=== PATIENT | female | born 1970 ===

== ENCOUNTER 2020-07-21 11:41 | Outpatient (REF) | payer OTHER, SELFPAY | END 2020-07-21 11:42 | disposition home or self-care (01) | LOC: HO.LAB 11:41 | PROVIDERS: Visit Provider Nurse Practitioner Family | DX: R05 Cough (principal) | CPT/HCPCS: 36415; U0003; U0005 ==

== ENCOUNTER 2020-07-21 11:42 | Outpatient (REF) | payer OTHER, SELFPAY ==
--- NOTE | ~2020-07-21 | XR_ITS ---
EXAMINATION: XR CHEST CLINICAL INFORMATION: Cough COMPARISON: CT abdomen 03/21/2017 TECHNIQUE: 2 views of the chest were obtained. FINDINGS: The lungs are clear. There is no airspace consolidation or groundglass opacity. There is no pneumothorax or pleural reaction or effusion. The costophrenic sulci are clear. The heart is normal in size. The hilar and mediastinal contours and visualized bony structures are unremarkable. XR/XR chest 2V IMPRESSION: Unremarkable examination.
== END 2020-07-21 11:43 | disposition home or self-care (01) ==
LOC: HO.HMGCX 11:42
PROVIDERS: PCP Internal Medicine; Visit Provider Nurse Practitioner Family
DX: R05 Cough (principal)
CPT/HCPCS: 71046

== ENCOUNTER 2021-04-06 10:46 | Outpatient (REF) | payer OTHER, SELFPAY ==
[2021-04-06 14:13] LABS: MANUAL DIFF FLAG NO
[2021-04-06 14:17] LABS: Basophils Percent Auto 0.5 % (0-2); Eosinophils Absolute Auto 0.1 X10*3/uL (0.0-0.4); Eosinophils Percent Auto 1.4 % (0-4); Hematocrit 36.1 % (37.0-47.0); Hemoglobin 11.7 g/dl (12.0-16.0); Imm Gran Abs Auto 0.02 X10*3/uL (0.00-0.03); Imm Gran Pct Auto 0.3 % (0.0-0.4); Lymphocytes Absolute Auto 1.3 X10*3/uL (1.2-4.9); Lymphocytes Percent Auto 17.5 % (20-40); Mean Corpuscular HGB Conc 32.4 g/dl (31.0-35.0); Mean Corpuscular Hemoglobin 28.5 pg (27.0-33.0); Mean Platelet Volume 9.7 fL (9.4-12.3); Monocytes Absolute Auto 0.5 X10*3/uL (0.1-1.2); Monocytes Percent Auto 6.6 % (2-11); Neutrophils Absolute Auto 5.5 x10*3/uL (2.0-8.3); Neutrophils Percent Auto 73.7 % (45-73); Platelet Count 344 X10*3/uL (160-400); Red Cell Distribution Width 14.3 % (11.0-16.0); White Blood Count 7.4 X10*3/uL (4.8-10.8)
[2021-04-06 14:49] LABS: Alanine Aminotransferase 10 U/L (0-31); Albumin Level 4.1 g/dL (3.5-5.0); Alkaline Phosphatase 51 U/L (39-117); Anion Gap 15 (12-20); Aspartate Amino Transferase 16 U/L (5-31); Bilirubin Total 0.6 mg/dL (0.0-1.0); Blood Urea Nitrogen 13 mg/dL (9-16); Calcium 9.6 mg/dL (8.4-10.2); Carbon Dioxide 23 mmol/L (22-29); Chloride 104 mmol/L (96-108); Cholesterol 177 mg/dL; Estimated Glomerular Filt Rate > 60; Glucose Fasting 85 mg/dL (60-99); HDL Cholesterol 50 mg/dL; Iron 70 mcg/dL (30-160); LDL Cholesterol Calculated 94 mg/dl; Percent Iron Saturation 16 % (15-50); Potassium 5.1 mmol/L (3.3-5.1); Sodium 137 mmol/L (135-145); Total Iron Binding Capacity 438 mcg/dL (228-428); Total Protein 7.2 g/dL (6.5-8.0); Triglycerides 166 mg/dL; Unsaturated Iron Binding 368 ug/dL
[2021-04-06 15:13] LABS: Free T4 (Free Thyroxine) 1.11 ng/dL (0.71-1.85); Thyroid Stimulating Hormone 2.99 uIU/mL (0.32-4.0); Vitamin D 25-OH Total 11.8 ng/mL (>30)
[2021-04-09 01:36] LABS: Thyroid Peroxidase Antibodies 53 IU/mL (<9)
== END 2021-04-06 10:47 | disposition home or self-care (01) ==
LOC: HO.HMGCLDS 10:46
PROVIDERS: PCP Internal Medicine; Visit Provider Internal Medicine
DX: D50.9 Iron deficiency anemia, unspecified (principal); E03.9 Hypothyroidism, unspecified; E55.9 Vitamin D deficiency, unspecified; E78.5 Hyperlipidemia, unspecified; N95.1 Menopausal and female climacteric states
CPT/HCPCS: 36415; 80053; 80061; 82306; 83540; 84439; 84443; 85025; 86376

== ENCOUNTER 2021-12-01 11:06 | Outpatient (REF) | payer OTHER, SELFPAY ==
--- NOTE | ~2021-12-01 | MM_ITS ---
EXAMINATION: MM SCREENING DIGITAL BREAST TOMOSYNTHESIS, BILATERAL CLINICAL INFORMATION: Screening. Asymptomatic. The lifetime risk of breast cancer based on the Tyrer-Cuzick Model is 16%. COMPARISON: Mammography: August 03, 2018 and studies dating back to February 09, 2012 TECHNIQUE: Digital breast tomosynthesis is performed in both the craniocaudal and mediolateral oblique views along with computer-aided detection (CAD). Synthesized 2D images are generated from the tomosynthesis. FINDINGS: There are scattered areas of fibroglandular density (ACR BI-RADS breast composition Category b). There is a stable parenchymal pattern of the left breast. Within the central medial aspect of the right breast there is a ill-defined faint density for which spot compression view is recommended. MM/MM tomosynthesis screening BI IMPRESSION: Right breast density for further evaluation. ASSESSMENT: BI-RADS 0: Incomplete - Need Additional Imaging Evaluation RECOMMENDATION: 1. Additional views of the right breast. 2. Targeted ultrasound if warranted after review of the additional views. 3. Radiology department staff will contact the patient for additional imaging. This patient's information was entered into a reminder system with a target due date for their next mammogram.
== END 2021-12-01 11:07 | disposition home or self-care (01) ==
LOC: HO.MAMMO 11:06
PROVIDERS: Visit Provider Internal Medicine
DX: Z12.31 Encounter for screening mammogram for malignant neoplasm of breast (principal)
CPT/HCPCS: 77063; 77067

== ENCOUNTER 2021-12-06 14:08 | Outpatient (REF) | payer OTHER, SELFPAY ==
--- NOTE | ~2021-12-06 | XR_ITS ---
EXAMINATION: XR FOOT, LEFT CLINICAL INFORMATION: Pain in the foot COMPARISON: None TECHNIQUE: AP, lateral, and oblique views of the left foot. FINDINGS: No fracture or dislocation. Alignment is maintained. Joint spaces are maintained. Hallux valgus. Soft tissue swelling of the midfoot. XR/XR foot LT min 3V IMPRESSION: Soft tissue swelling with no acute osseous abnormality. Hallux valgus.
== END 2021-12-06 14:09 | disposition home or self-care (01) ==
LOC: HO.HOSX 14:08
PROVIDERS: Visit Provider Physician Assistant
DX: S93.402A Sprain of unspecified ligament of left ankle, initial encounter (principal)
CPT/HCPCS: 73630; 99202

== ENCOUNTER 2021-12-14 12:22 | Outpatient (REF) | payer OTHER, SELFPAY ==
--- NOTE | ~2021-12-14 | MM_ITS ---
EXAMINATION: MM DIAGNOSTIC DIGITAL BREAST TOMOSYNTHESIS, RIGHT CLINICAL INFORMATION: Recall from screening for question of focal asymmetric density central inner right breast. COMPARISON: Mammography: 12/01/2021, 08/03/2018, 07/21/2017 TECHNIQUE: Digital breast tomosynthesis is performed. 2D images are generated from the tomosynthesis. The following views are obtained: Spot CC, spot MLO FINDINGS: There are scattered areas of fibroglandular density (ACR BI-RADS breast composition Category b). Additional views show no persistent asymmetric density. There is no mass or architectural abnormality. No significant change from prior studies. Results are discussed with the patient at time of visit. MM/MM tomosynthesis added views R IMPRESSION: Additional views show no persistent asymmetric density. No significant changes from prior studies. ASSESSMENT: BI-RADS 1: Negative RECOMMENDATION: Routine annual mammography screening. This patient's information was entered into a reminder system with a target due date for their next mammogram.
== END 2021-12-14 12:23 | disposition home or self-care (01) ==
LOC: HO.MAMMO 12:22
PROVIDERS: PCP Internal Medicine; Visit Provider Internal Medicine
DX: R92.2 Inconclusive mammogram (principal)
CPT/HCPCS: 77061; 77065

== ENCOUNTER 2022-05-18 11:58 | Outpatient (REF) | payer OTHER, SELFPAY ==
--- NOTE | ~2022-05-18 | XR_ITS ---
EXAMINATION: XR KNEE, LEFT CLINICAL INFORMATION: Left knee pain COMPARISON: July 02, 2019 TECHNIQUE: Four views of the left knee. FINDINGS: There has been progression in medial joint space narrowing with spurring and tibial plateau subchondral cyst formation. No definite acute fracture is seen. No effusion is noted. The patellofemoral joint and lateral joint space compartments are maintained. There are small spurs undersurface of the patella. There is question of a density about the anterior aspect of the knee joint on lateral view only which appears to have separation from the tibial spine with clear space and may represent a small loose body with possible donor site about the medial tibial plateau in region of the subchondral cyst. XR/XR knee LT 4V IMPRESSION: Progression in degenerative change of the medial joint space compartment of the left knee. No definite acute fracture or dislocation or effusion identified. Question possible small loose body as described
== END 2022-05-18 11:59 | disposition home or self-care (01) ==
LOC: HO.HMGCX 11:58
PROVIDERS: PCP Internal Medicine; Visit Provider Internal Medicine
DX: M25.562 Pain in left knee (principal)
CPT/HCPCS: 73564

== ENCOUNTER 2022-08-08 08:53 | Outpatient (REF) | payer OTHER, SELFPAY ==
[2022-08-08 11:39] LABS: MANUAL DIFF FLAG NO
[2022-08-08 11:56] LABS: Basophils Percent Auto 0.6 % (0-2); Eosinophils Absolute Auto 0.1 X10*3/uL (0.0-0.4); Hematocrit 38.2 % (37.0-47.0); Hemoglobin 12.2 g/dl (12.0-16.0); Imm Gran Abs Auto 0.02 X10*3/uL (0.00-0.03); Imm Gran Pct Auto 0.4 % (0.0-0.4); Lymphocytes Percent Auto 18.8 % (20-40); Mean Corpuscular HGB Conc 31.9 g/dl (31.0-35.0); Mean Platelet Volume 9.4 fL (9.4-12.3); Monocytes Absolute Auto 0.4 X10*3/uL (0.1-1.2); Monocytes Percent Auto 7.4 % (2-11); Neutrophils Absolute Auto 3.6 x10*3/uL (2.0-8.3); Neutrophils Percent Auto 70.8 % (45-73); Platelet Count 343 X10*3/uL (160-400); Red Cell Distribution Width 12.3 % (11.0-16.0); White Blood Count 5.1 X10*3/uL (4.8-10.8)
[2022-08-08 12:59] LABS: Alanine Aminotransferase 13 U/L (0-31); Albumin Level 4.3 g/dL (3.5-5.0); Alkaline Phosphatase 65 U/L (39-117); Amylase 36 U/L (28-100); Anion Gap 11 (12-20); Aspartate Amino Transferase 17 U/L (5-31); Blood Urea Nitrogen 18 mg/dL (9-16); Calcium 9.8 mg/dL (8.4-10.2); Carbon Dioxide 31 mmol/L (22-29); Chloride 104 mmol/L (96-108); Cholesterol 197 mg/dL; Estimated Glomerular Filt Rate > 60; Glucose Fasting 93 mg/dL (60-99); HDL Cholesterol 46 mg/dL; Iron 73 mcg/dL (30-160); LDL Cholesterol Calculated 133 mg/dl; Lipase 11 U/L (8-78); Percent Iron Saturation 23 % (15-50); Potassium 4.6 mmol/L (3.3-5.1); Sodium 141 mmol/L (135-145); Total Iron Binding Capacity 314 mcg/dL (228-428); Total Protein 7.1 g/dL (6.5-8.0); Triglycerides 90 mg/dL; Unsaturated Iron Binding 241 ug/dL
[2022-08-08 13:16] LABS: Free T4 (Free Thyroxine) 1.36 ng/dL (0.71-1.85); Thyroid Stimulating Hormone 1.67 uIU/mL (0.32-4.0); Vitamin D 25-OH Total 21.2 ng/mL (>30)
== END 2022-08-08 08:54 | disposition home or self-care (01) ==
LOC: HO.HMGCLDS 08:53
PROVIDERS: PCP Internal Medicine; Visit Provider Internal Medicine
DX: R10.13 Epigastric pain (principal); N95.1 Menopausal and female climacteric states; E78.5 Hyperlipidemia, unspecified; E66.9 Obesity, unspecified; E55.9 Vitamin D deficiency, unspecified; E03.9 Hypothyroidism, unspecified; D50.9 Iron deficiency anemia, unspecified
CPT/HCPCS: 36415; 80053; 80061; 82150; 82306; 83540; 83690; 84439; 84443; 85025

== ENCOUNTER 2022-08-23 09:14 | Outpatient (REF) | payer OTHER, SELFPAY ==
[2022-08-23 12:37] LABS: Vitamin B12 644 pg/mL (200-900)
[2022-08-26 13:24] LABS: Transglutaminase Ab IgG <1.0 U/mL; Transglutaminase IgA <1.0 U/mL
== END 2022-08-23 09:15 | disposition home or self-care (01) ==
LOC: HO.LAB 09:14
PROVIDERS: PCP Internal Medicine; Visit Provider Nurse Practitioner Family
DX: K21.9 Gastro-esophageal reflux disease without esophagitis (principal); R10.13 Epigastric pain; K58.1 Irritable bowel syndrome with constipation; R13.10 Dysphagia, unspecified
CPT/HCPCS: 36415; 82607; 82746; 86364; 99202

== ENCOUNTER → 2022-09-06 08:04 | Outpatient (BNVA) | payer OTHER, SELFPAY | PROVIDERS: PCP Internal Medicine; Referring Provider Internal Medicine; Visit Provider Nurse Practitioner Family | DX: Z11.0 Encounter for screening for intestinal infectious diseases (principal) | CPT/HCPCS: 99211 ==

== ENCOUNTER 2022-09-06 17:02 | Outpatient (REF) | payer OTHER, SELFPAY ==
[2022-09-08 11:45] LABS: H Pylori Breath Test Positive (Negative)
== END 2022-09-06 17:03 | disposition home or self-care (01) ==
LOC: HO.LNP 17:02
PROVIDERS: Visit Provider Nurse Practitioner Family
DX: E66.9 Obesity, unspecified (principal)
CPT/HCPCS: 83013

== ENCOUNTER 2022-12-01 14:17 | Outpatient (AMB) | payer OTHER, SELFPAY ==
--- NOTE | 2022-12-01 14:35 | A.OFFVIS_ITS ---
Intake Vital Signs 12/01/22 14:38 Height 5 ft 2 in Weight 180 lb BMI 32.9 BP 127/58 L Blood Pressure Location Lt brachial Position Sitting Pulse 86 Intake Visit Reasons: pt rquested appt f/u Intake Note: Patient follow up for abdominal burning sensation. Patient cc: Abdominal pain/bloating, acid reflex with burning sensation, soft waterily BM. [employer] Central Office Required: No Accompanied by: Self / Same As Patient Allergies No Known Allergies Allergy (Mild, Verified 12/01/22 14:34) NOT APPLICABLE HPI pt rquested appt f/u HPI Details LAST VISIT GERD (gastroesophageal reflux disease) Will do H pylori testing today and treat empirically if positive. Patient can start taking famotidine 20 mg twice a day to help her with symptoms. Discussed with patient avoiding dietary triggers and late night snacking. Staying upright for minimum 3 hours after after meals discussed with patient Epigastric pain Patient reports epigastric discomfort postprandially. Do H pylori testing. Start famotidine twice a day. Will rule out celiac IBS (irritable bowel syndrome) Postprandial abdominal bloating mostly when she is constipated. Will have her start taking Citrucel and Senokot. Patient will call if she will continue to be constipated will change that to Linzess. Discussed with patient avoiding dietary triggers. Low FODMAP diet discussed with patient. List of food recommended as well as list of food to avoid given to patient. Dysphagia Patient reports occasional trouble swallowing. Symptoms are worse when she feels bloated. Will check for H pylori. Most likely related to reflux and dyspepsia. I will see patient in 6 weeks, sooner on as needed basis. We will discuss going for upper endoscopy. She is agreeable to this plan and verbalizes understanding of instructions. She was given the opportunity to ask questions and all questions answered. ? Thank you for allowing me to participate in her care Plan Orders Orders H Pylori Breath Test 08/23/22 Transglutaminase Ab IgG 08/23/22 R10.9 Transglutaminase IgA 08/23/22 R10.9 Vitamin B12 and Folate 08/23/22 R19.7 TODAY'S VISIT: Patient is here today for follow-up. Patient was treated for H pylori back in September. Tested positive. Has not return for follow-up till today. Patient reports similar symptoms as before with epigastric discomfort, burning like sensation regardless what she eats.. Patient states that she is constipated but occasionally will have loose stools. Patient also reports postprandial abdominal bloating. Occasional dyspepsia without dysphagia or odynophagia. Patient denies any nausea or vomiting. Denies melena, hematochezia, unintentional weight loss or ribbon like stools. [facility] Medical History Acquired hypothyroidism Dyslipidemia Epigastric pain Iron deficiency anemia Left ankle sprain Obesity (BMI 30.0-34.9) Perimenopause Polyarthralgia Vitamin D deficiency Surgical History No pertinent past surgical history Family History Maternal Uncle Mental health disorder Social History Housing: House Patient Tobacco Use Status: Never used Tobacco e-Cigarette/Vaping Use: Never Used service: No Current occupational status: employed Cognitive needs: No Hearing needs: No Vision needs: Yes Review of Systems Const Denies weight gain and Denies weight loss ENT Reports no additional complaints, Denies dysphagia and Denies odynophagia Card Reports no additional complaints Resp Reports no additional complaints GI Reports abdominal pain (Epigastric), Denies belching, Denies melena, Reports bloating, Reports constipation, Denies dysphagia, Denies excessive flatus, Denies dyspepsia, Reports heartburn, Denies diarrhea, Reports loose stools, Denies nausea, Denies odynophagia and Denies vomiting Reports no additional complaints Musc Reports no additional complaints Neuro Reports no additional complaints Psych Reports no additional complaints Endo Reports no additional complaints Physical Exam Vital Signs: Last Vital Signs Pulse 86 12/01/22 14:38 BP 127/58 L 12/01/22 14:38 BMI result Body Mass Index 32.9 Const General: healthy appearing, no acute distress and well developed Nutritional Appearance: obese Orientation/consciousness: patient oriented x3 HEENT Head: Yes normal to inspection, Yes normocephalic and Yes atraumatic Face and sinus: Yes normal facial exam Mouth: Normal oral and palatal mucosa present Throat: Yes posterior oropharynx normal, Yes tonsils normal and Yes uvula midline Eyes General: appearance normal, both eyes and all related structures Neck Neck: Yes normal visual inspection, Yes full ROM and Yes trachea midline Thyroid: Thyroid normal Resp Effort & Inspection: normal respiratory effort, able to speak in complete sentences, no tracheal deviation and symmetric chest movement Auscultation: clear to auscultation bilaterally Cardio Rate: regular rate Heart sounds: S1 normal heart sound present and S2 normal heart sound present GI Inspection: Yes normal to inspection, No distended and Yes obesity Palpation (GI): Soft to palpation, not firm, nontender and No hepatosplenomegaly present Auscultation: normal bowel sounds General: Yes no CVA tenderness Back/Spine/Pelvis Back: no CVA tenderness Skin General skin exam: elasticity normal, turgor normal and dry skin Neuro General: patient oriented x3 Psych Appearance: grossly normal Mental Status: mental status grossly normal Speech and movement: Normal speech and movement present Assessment & Plan Assessment & Plan (1) Epigastric pain: Code(s): R10.13 - Epigastric pain Plan: Patient reports epigastric discomfort. She can take famotidine at bedtime and omeprazole 40 mg half an hour before breakfast. Avoid dietary triggers. (2) GERD (gastroesophageal reflux disease): Code(s): K21.9 - Gastro-esophageal reflux disease without esophagitis Qualifiers: Esophagitis presence: esophagitis presence not specified Qualified Code(s): K21.9 - Gastro-esophageal reflux disease without esophagitis Plan: Encourage patient to avoid dietary triggers and late night snacking. Staying upright for minimum 3 hours after meals discussed with patient. Will check for H pylori again. Will treat empirically positive. Continue PPI and H2 víctor (3) IBS (irritable bowel syndrome): Code(s): K58.9 - Irritable bowel syndrome without diarrhea Qualifiers: Irritable bowel syndrome type: with both diarrhea and constipation Qualified Code(s): K58.2 - Mixed irritable bowel syndrome Plan: Occasional loose stools, however patient reports that she is constipated for removed our. Continue taking Citrucel in the morning and Senokot at night time. Patient was also encouraged to increase fluid intake and activity to promote better bowel motility. Low FODMAP diet encouraged. I will see patient in 5 weeks to discuss upper endoscopy and colonoscopy. Patient is agreeable to this plan and verbalizes understanding of instructions. She was given the opportunity to ask questions and all questions answered. Thank you for allowing me participate in her care Orders: Orders H pylori Ag Stool 12/01/22 K21.9 - Gastro-esophageal reflux disease without esophagitis Medications: Changed From famotidine 20 mg PO BID 30 tabs 0RF K21.9 - Gastro-esophageal reflux disease without esophagitis To famotidine (Pepcid) 20 mg PO BEDTIME 30 tabs 2RF K21.9 - Gastro-esophageal reflux disease without esophagitis Refilled methylcellulose (laxative) (Citrucel) take it with full glass of water 500 mg PO DAILY 30 tabs 2RF K59.00 - Constipation, unspecified Discontinued metronidazole Discontinued Reason: Patient no longer taking 1,000 mg (2 x 500 mg) PO BID 14 days 56 tabs 0RF A04.8 - Other specified bacterial intestinal infections tetracycline Discontinued Reason: Patient no longer taking 500 mg PO Q12H 14 days 28 caps 0RF A04.8 - Other specified bacterial intestinal infections Coding Level of Care Code Est Pt Level 4 (72308) Diagnoses Epigastric pain R10.13 GERD (gastroesophageal reflux disease) K21.9 Esophagitis presence: esophagitis presence not specified IBS (irritable bowel syndrome) K58.2 Irritable bowel syndrome type: with both diarrhea and constipation Time Spent (min) 35 Comment 20 minutes spent with patient and additional 15 minutes spent reviewing her records
[2022-12-01 14:38] VITALS: BP 127/58; PULSE 86; BMI 32.9
== END 2022-12-01 15:12 | disposition home or self-care (01) ==
PROVIDERS: PCP Internal Medicine; Visit Provider Nurse Practitioner Family
DX: R10.13 Epigastric pain (principal); K21.9 Gastro-esophageal reflux disease without esophagitis; K58.2 Mixed irritable bowel syndrome
CPT/HCPCS: 99214

== ENCOUNTER → 2022-12-01 14:17 | Outpatient (BNVA) | payer OTHER, SELFPAY | PROVIDERS: PCP Internal Medicine; Visit Provider Nurse Practitioner Family | DX: R10.13 Epigastric pain (principal); K21.9 Gastro-esophageal reflux disease without esophagitis; K58.2 Mixed irritable bowel syndrome; Z79.899 Other long term (current) drug therapy | CPT/HCPCS: 99212 ==

== ENCOUNTER 2022-12-18 15:00 | Outpatient (REF) | payer OTHER, SELFPAY | END 2022-12-18 15:01 | disposition home or self-care (01) | LOC: HO.LNP 15:00 | PROVIDERS: Visit Provider Nurse Practitioner Family | DX: K21.9 Gastro-esophageal reflux disease without esophagitis (principal) | CPT/HCPCS: 87338 ==

== ENCOUNTER 2023-02-03 09:50 | Outpatient (REF) | payer OTHER, SELFPAY ==
[2023-02-03 12:06] LABS: Alanine Aminotransferase 10 U/L (0-31); Aspartate Amino Transferase 17 U/L (5-31); Cholesterol 210 mg/dL (<200); HDL Cholesterol 51 mg/dL (>40); LDL Cholesterol Calculated 143 mg/dL (<100); Triglycerides 84 mg/dL (<150)
[2023-02-03 12:13] LABS: Thyroid Stimulating Hormone 0.65 uIU/mL (0.32-4.0); Vitamin D 25-OH Total 27.4 ng/mL (>30)
== END 2023-02-03 09:51 | disposition home or self-care (01) ==
LOC: HO.HMGCLDS 09:50
PROVIDERS: PCP Internal Medicine; Visit Provider Internal Medicine
DX: E03.9 Hypothyroidism, unspecified (principal); E78.5 Hyperlipidemia, unspecified; N95.1 Menopausal and female climacteric states; E55.9 Vitamin D deficiency, unspecified
CPT/HCPCS: 36415; 80061; 82306; 84443; 84450; 84460

== ENCOUNTER 2023-02-05 15:12 | Outpatient (REF) | payer OTHER, SELFPAY ==
[2023-02-05 16:57] LABS: Free T4 (Free Thyroxine) 1.39 ng/dL (0.71-1.85)
== END 2023-02-05 15:13 | disposition home or self-care (01) ==
LOC: HO.HMGCLDS 15:12
PROVIDERS: PCP Internal Medicine; Visit Provider Internal Medicine
DX: E03.9 Hypothyroidism, unspecified (principal); E78.5 Hyperlipidemia, unspecified; N95.1 Menopausal and female climacteric states; E55.9 Vitamin D deficiency, unspecified
CPT/HCPCS: 36415; 84439

== ENCOUNTER 2023-02-06 10:28 | Outpatient (AMB) | payer OTHER, SELFPAY ==
[2023-02-06 10:36] VITALS: BP 122/78; PULSE 65; O2SAT 99; BMI 34.6
--- NOTE | 2023-02-06 10:36 | A.OFFPC_ITS ---
Vital Signs 02/06/23 10:36 Height 5 ft 2 in Weight 189 lb BMI 34.6 BP 122/78 Blood Pressure Location Lt brachial Position Sitting Pulse 65 Pulse Source Pulse Oximeter Pulse Oximetry (%) 99 Oxygen Delivery Method Room Air Intake Visit Reasons: 6m follow up hypothyroidism. Intake Note: patient is here today for her 6 month f/u Allergies No Known Allergies Allergy (Mild, Verified 02/06/23 10:50) NOT APPLICABLE Medication List - Last Reconciled 02/06/23 by Angie Carlin MD celecoxib (Celebrex) 200 mg PO DAILY PRN famotidine (Pepcid) 20 mg PO BEDTIME levothyroxine 125 mcg PO QAM omeprazole 20 mg PO BID 14 days Tobacco use date assessed: 02/06/23 Dental Screening Dental Screen Date: 02/06/23 Did you have a dental visit in the last 12 months?: No Did you have a dental problem in the last 6 months where you did not have access to dental care?: No Was dental information given to patient?: Patient has dentist HPI HPI Comments History of Present Illness Details 52-year-old lady with hypothyroidism, dy slipidemia, here today for follow-up. Had recent fasting labs done which showed thyroid levels within normal limits, but lipids showed LDL cholesterol at 143 mg/dL. She also has recently diagnosed with H pylori gastritis, was placed on antibiotics and PPI by GI, but patient unable to afford some of her medications and has only been taking omeprazole and famotidine. Still complaining of epigastric pain accompanied by bloating, and heartburn symptoms Also found to be having low vitamin-D level and latest labs done [facility] Medical History (Updated 02/06/23 @ 10:58 by Angie Carlin MD) Polyarthralgia Epigastric pain Obesity (BMI 30.0-34.9) Left ankle sprain Vitamin D deficiency Perimenopause Iron deficiency anemia Dyslipidemia Acquired hypothyroidism Surgical History No pertinent past surgical history Family History Maternal Uncle Mental health disorder Social History Housing: House Patient Tobacco Use Status: Never used Tobacco e-Cigarette/Vaping Use: Never Used service: No Current occupational status: employed Cognitive needs: No Hearing needs: No Vision needs: Yes Questionnaire Thrive Questionnaire Date Thrive assessed: 08/08/22 AUDIT C Alcohol Use Questionnaire (AUDIT-C) 1. How often do you have a drink containing alcohol?: Monthly or less 2. How many drinks containing alcohol do you have on a typical day when you are drinking?: 1 or 2 Total Score: 1 CADE-7 AMB Questionnaire CADE-7 Date CADE - 7 assessed: 08/08/22 Source: Developed by Drs. Rodriguez Lewis, Sofia Courtney, Davy Kim and colleagues, with an educational misael from [employer]. Review of Systems Const Denies weight gain and Denies weight loss Eyes Denies change in vision ENT Reports no additional complaints and Denies dysphagia Card Reports no additional complaints Resp Reports no additional complaints GI Reports abdominal pain (Epigastric), Denies belching, Denies melena, Reports bloating, Denies hematochezia, Denies change in bowel habits, Denies dysphagia, Denies excessive flatus and Denies nausea Reports no additional complaints Musc Reports no additional complaints Neuro Reports no additional complaints Psych Reports no additional complaints Endo Reports no additional complaints Main/Lymph Reports no additional complaints Physical exam (Primary Care) Vital Signs: Last Vital Signs Pulse 65 02/06/23 10:36 BP 122/78 02/06/23 10:36 Pulse Ox 99 02/06/23 10:36 Oxygen Delivery Method Room Air 02/06/23 10:36 BMI result Body Mass Index 34.6 Tobacco/Smoking Status: Tobacco use Status Tobacco use date assessed 02/06/23 02/06/23 10:41 Patient Tobacco Use Status Never used Tobacco 02/06/23 10:41 e-Cigarette/Vaping Use Never Used 02/06/23 10:41 Thrive Assessment: Date of Thrive Assessment Date Thrive assessed 08/08/22 02/06/23 10:41 Const General: cooperative, comfortable and no acute distress Orientation/consciousness: patient oriented x3 Limitations: no limitations HENMT Ears: hearing grossly normal bilaterally, TM's normal bilaterally and EAC's normal General nose exam: Normal external nose present and No nasal discharge present Mouth: oropharynx normal and moist mucous membranes Eyes General: appearance normal, both eyes and all related structures Pupils: Equal, round and reactive pupils present EOM: EOMs intact bilaterally Neck Other: Palpable thyroid gland, Neck: Yes full ROM, Yes no lymphadenopathy and Yes supple Resp Effort & Inspection: normal respiratory effort and able to speak in complete sentences Auscultation: clear to auscultation bilaterally Cardio Rate: regular rate Rhythm: regular rhythm Heart sounds: S1 normal heart sound present and S2 normal heart sound present GI Inspection: Yes obesity Palpation (GI): Soft to palpation, Tenderness to palpation present (GI) in the epigastrum, no guarding, no hernias and no masses Auscultation: normal bowel sounds Skin General skin exam: no rashes or lesions noted Neuro General: patient oriented x3, gait normal, tone normal, moves all extremities, Normal light touch and pain sensation and no focal motor deficits Cranial nerves: Yes Equal, round and reactive pupils present Cognition (Neuro): normal cognition Gait exam (Neuro): Normal gait present Motor exam (neuro): 5/5 motor strength present throughout Extrem Other: Mild swelling and tender to palpation over medial aspect of left knee joint, no gross bone deformity, slight crepitus noted Results Reviewed Results Reviewed: ENTERED: 02/03/[address]: ORDERED: AST, ALT, Lipid Panel, Vitamin D 25-OH, TSH Test Result Flag Reference Site AST (GOT) 17 5-31 U/L ALT (GPT) 10 0-31 U/L Triglyceride 84 <150 mg/dL Desirable Triglyceride: less than 150 mg/dL Borderline High Triglyceride 150-199 mg/dL High Triglyceride: 200-499 mg/dL Very High Triglyceride: greater than or equal to 5OO mg/dL Cholesterol 210 H <200 mg/dL Desirable Cholesterol: less than 200 mg/dL Borderline High Cholesterol: 200-239 mg/dL High Cholesterol: greater than 239 mg/dL LDL Calculated 143 H <100 mg/dL Desirable LDL: less than 100 mg/dL Near Optimal/Above Optimal LDL: 110-129 mg/dL Borderline High LDL: 130-159 mg/dL High LDL: 160-189 mg/dL Very High LDL: greater than or equal to 190 mg/dL HDL 51 >40 mg/dL Desirable HDL: greater than 40 mg/dL Note: This HDL assay may give artificially low results in patients with liver disease. Vit D 25-OH Tot 27.4 >30 ng/mL Health Based Reference Values* < 20 ng/mL Deficient 20-30 ng/mL Insufficient > 30 ng/mL Sufficient *Reagan BONNER. N Engl J Med. 2007;[id number] Care must be taken in interpreting Vitamin D results from different laboratories and methodologies. Published data demonstrated that results from patients undergoing hemodialysis may show a negative bias when tested with various automated 25-OH vitamin D assays when compared to LC-MS/MS. When testing samples from patients whose predominant form of Vitamin D is Vitamin D2, such as patients receiving Vitamin D2 supplementation, results that are subtherapeutic should be confirmed with another method such as LC-MS/MS. TSH 3rd Gen. 0.65 0.32-4.0 uIU/mL TSH 3rd Generation ([facility]) Laboratory Tests 02/05/23 15:20 Free T4 1.39 Assessment and Plan Assessment & Plan (1) Acquired hypothyroidism: Code(s): E03.9 - Hypothyroidism, unspecified Plan: TSH and free T4 within normal limits, will continue on current dose of levothyroxine at 125 mcg daily in a.m. (2) Dyslipidemia: Code(s): E78.5 - Hyperlipidemia, unspecified Plan: Reviewed recent fasting lipid profile with patient with elevated LDL cholesterol. Stressed importance of adherence to low-cholesterol diet and regular exercise, at least 30 minutes 3 to 4 times a week. Advised patient to make healthy food choices, eat more fruits, vegetables, whole grains, wild caught fish and low-fat dairy. Limit amount of meat and fried or fatty food products, as well as processed foods and fast foods. Will repeat levels again on physical exam next year (3) Vitamin D deficiency: Code(s): E55.9 - Vitamin D deficiency, unspecified (4) H. pylori infection: Code(s): A04.8 - Other specified bacterial intestinal infections Plan: Patient found to have positive H pylori infection on biopsy, never took the antibiotics and was per her prescribed to her by her GI, only taking PPI ice, still complaining of epigastric pain and bloating. Advised to follow-up with her GI let them know that she was unable to afford prescriptions that was given, has a new insurance now, to check whether these medicines are now covered Medications: New cholecalciferol (vitamin D3) 1,250 mcg PO QWEEK 13 caps 0RF 3 months E55.9 - Vitamin D deficiency, unspecified Patient Instructions: Prescription sent for vitamin-D 350 1000 units per capsule to take once a week for the next 3 months. Instructed patient that once finished taking that high- dose replacement to continue taking [id number] vitamin-D 3 at 2000 units daily Coding Level of Care Code Est Pt Level 4 (16549) Diagnoses Acquired hypothyroidism E03.9 Dyslipidemia E78.5 Vitamin D deficiency E55.9 H. pylori infection A04.8
== END 2023-02-06 11:41 | disposition home or self-care (01) ==
PROVIDERS: PCP Internal Medicine; Visit Provider Internal Medicine
DX: E03.9 Hypothyroidism, unspecified (principal); E78.5 Hyperlipidemia, unspecified; E55.9 Vitamin D deficiency, unspecified; A04.8 Other specified bacterial intestinal infections
CPT/HCPCS: 99214

== ENCOUNTER 2023-02-09 11:12 | Outpatient (AMB) | payer OTHER, SELFPAY ==
--- NOTE | 2023-02-09 11:34 | MHC.PC.OV ---
Vital Signs 02/09/23 11:35 Height 5 ft 2 in Weight 185 lb BMI 33.8 BP 130/70 Blood Pressure Location Rt brachial Position Sitting Pulse 74 Pulse Source Pulse Oximeter Pulse Oximetry (%) 98 Oxygen Delivery Method Room Air Intake Visit Reasons: Knee Swelling Intake Note: patient is here today for knee swelling Allergies No Known Allergies Allergy (Mild, Verified 02/09/23 12:01) NOT APPLICABLE Medication List - Last Reconciled 02/09/23 by Angie Carlin MD celecoxib (Celebrex) 200 mg PO DAILY PRN cholecalciferol (vitamin D3) 1,250 mcg PO QWEEK 3 months famotidine (Pepcid) 20 mg PO BEDTIME levothyroxine 125 mcg PO QAM omeprazole 20 mg PO BID 14 days Tobacco use date assessed: 02/09/23 Dental Screening Dental Screen Date: 02/09/23 Did you have a dental visit in the last 12 months?: No Did you have a dental problem in the last 6 months where you did not have access to dental care?: No Was dental information given to patient?: Patient has dentist HPI Knee Swelling HPI Details 52-year-old lady here today complaining of acute swelling on front of right knee joint, started last night. She has been running on a regular basis, denies any history of trauma, denies any pain but complains of slight discomfort over right knee join. [facility] Medical History Polyarthralgia Epigastric pain Obesity (BMI 30.0-34.9) Left ankle sprain Vitamin D deficiency Perimenopause Iron deficiency anemia Dyslipidemia Acquired hypothyroidism Surgical History No pertinent past surgical history Family History Maternal Uncle Mental health disorder Social History Housing: House Patient Tobacco Use Status: Never used Tobacco e-Cigarette/Vaping Use: Never Used service: No Current occupational status: employed Cognitive needs: No Hearing needs: No Vision needs: Yes Questionnaire Thrive Questionnaire Date Thrive assessed: 08/08/22 AUDIT C Alcohol Use Questionnaire (AUDIT-C) 1. How often do you have a drink containing alcohol?: Monthly or less 2. How many drinks containing alcohol do you have on a typical day when you are drinking?: 1 or 2 Total Score: 1 CADE-7 AMB Questionnaire CADE-7 Date CADE - 7 assessed: 08/08/22 Source: Developed by Drs. Rodriguez Lewis, Sofia Courtney, Davy Kim and colleagues, with an educational misael from [employer]. Review of Systems Const All systems reviewed & are unremarkable except as noted in HPI and below Physical exam (Primary Care) Vital Signs: Last Vital Signs Pulse 74 02/09/23 11:35 BP 130/70 02/09/23 11:35 Pulse Ox 98 02/09/23 11:35 Oxygen Delivery Method Room Air 02/09/23 11:35 BMI result Body Mass Index 33.8 Tobacco/Smoking Status: Tobacco use Status Tobacco use date assessed 02/09/23 02/09/23 11:40 Patient Tobacco Use Status Never used Tobacco 02/09/23 11:34 e-Cigarette/Vaping Use Never Used 02/09/23 11:34 Thrive Assessment: Date of Thrive Assessment Date Thrive assessed 08/08/22 02/09/23 11:34 Const Other: Alert oriented x3, no acute distress noted ambulatory with normal gait Neck Neck: Yes full ROM, Yes no lymphadenopathy and Yes supple Resp Auscultation: clear to auscultation bilaterally Cardio Other: S1-S2 present regular rate and rhythm Extrem Other: Fluctuant effusion over right patella, no increased warmth, nontender, full range of motion of right knee joint Assessment and Plan Assessment & Plan (1) Knee effusion, right: Code(s): M25.461 - Effusion, right knee Plan: Advised to hold off on running for now, apply alternating ice her heat to affected joint for 15 minutes 3 times a day. May take Celebrex as needed for pain. X-ray of right knee ordered. Return to clinic if no improvement of symptoms by next week Orders: Orders XR knee RT 4V 02/09/23 M25.461 - Effusion, right knee Coding Level of Care Code Est Pt Level 3 (17312) Diagnoses Knee effusion, right M25.461
[2023-02-09 11:35] VITALS: BP 130/70; PULSE 74; O2SAT 98; BMI 33.8
== END 2023-02-09 12:11 | disposition home or self-care (01) ==
PROVIDERS: PCP Internal Medicine; Visit Provider Internal Medicine
DX: M25.461 Effusion, right knee (principal)
CPT/HCPCS: 99213

== ENCOUNTER 2023-02-09 11:59 | Outpatient (REF) | payer OTHER, SELFPAY ==
--- NOTE | ~2023-02-09 | XR_ITS ---
EXAMINATION: XR KNEE, RIGHT CLINICAL INFORMATION: Effusion. COMPARISON: None available. TECHNIQUE: Four views of the right knee. FINDINGS: Prepatellar soft tissue prominence but no definite joint effusion. No fracture or dislocation. Alignment is satisfactory. XR/XR knee RT 4V IMPRESSION: Prepatellar soft tissue prominence
== END 2023-02-09 12:00 | disposition home or self-care (01) ==
LOC: HO.HMGCX 11:59
PROVIDERS: PCP Internal Medicine; Visit Provider Internal Medicine
DX: M25.461 Effusion, right knee (principal)
CPT/HCPCS: 73564

== ENCOUNTER 2023-06-27 11:56 | Emergency (ER) | payer OTHER, SELFPAY ==
[2023-06-27 12:29] VITALS: BP 135/70; PULSE 80; RESP 18; TEMP 36.6; O2SAT 97; BMI 33.3
--- NOTE | 2023-06-27 12:29 | ED_ITS ---
HPI - General Adult General Chief complaint: Abdominal Pain Stated complaint: Blood in Stool Upper Abd Pain Time Seen by Provider: 06/27/23 20:55 History of Present Illness HPI narrative: The patient is a 53-year-old woman who says that for the last 2 months she has had intermittent abdominal pains and she has also had problems with blood per rectum. She says that she has blood with bowel movements. She says that she has been having 4-5 bowel movements per day. She says that the stool looks green but that there is blood intertwined with the stools. There is also additional blood in the toilet. She says that she has pains in her abdomen that wax and wane. When she gets abdominal pain that usually means she needs to have a bowel movement and then she has a bloody bowel movement. Sometimes her stools are loose and sometimes they are less loose. She has not had any fevers, sweats, chills. No nausea or vomiting. She has never had a colonoscopy. Related Data Previous Rx's Medication Instructions Recorded celecoxib 200 mg capsule (Celebrex) 200 mg PO DAILY PRN pain #30 caps 10/09/22 famotidine 20 mg tablet (Pepcid) 20 mg PO BEDTIME #30 tabs 12/01/22 omeprazole 20 mg capsule,delayed 20 mg PO BID 14 days #28 caps 12/20/22 release levothyroxine 125 mcg tablet 125 mcg PO QAM #90 tabs 05/03/23 cholecalciferol (vitamin D3) 1,250 1,250 mcg PO QWEEK 3 months #13 05/08/23 mcg (50,000 unit) capsule caps Allergies Allergy/AdvReac Type Severity Reaction Status Date / Time No Known Allergies Allergy Mild NOT Verified 06/27/23 12:29 APPLICABLE Review of Systems 2 Review of Systems: Yes all other systems are reviewed and are negative REPLACED BY [facility] Past Medical History Medical History Polyarthralgia Epigastric pain Obesity (BMI 30.0-34.9) Left ankle sprain Vitamin D deficiency Perimenopause Iron deficiency anemia Dyslipidemia Acquired hypothyroidism Surgical History No pertinent past surgical history Family History Family History Maternal Uncle Mental health disorder Social History Social History Housing: House Alcohol intake: never Patient Tobacco Use Status: Never used Tobacco Smoked in Last 30 Days: No e-Cigarette/Vaping Use: Never Used Use of substances other than those prescribed or required for medical reasons: No Advance Directives: No Advance Directives Information Provided: No Patient : No service: No Current occupational status: employed Cognitive needs: No Hearing needs: No Vision needs: Yes Physical Exam ED Vital Signs: Vital Signs - 24 hr 06/27/23 12:29 06/27/23 20:15 06/27/23 20:27 Temperature 97.8 F 98 F 97.5 F Pulse Rate 80 65 70 Respiratory Rate 18 18 14 Blood Pressure 135/70 130/64 107/61 Pulse Oximetry 97 100 98 Oxygen Delivery Method Room Air Room Air Room Air BMI result Body Mass Index 33.3 Const Other: The patient is a well-groomed, very pleasant 53-year-old who looks younger than her age. She does not appear ill or in distress. HENMT Other: The face is symmetrical. ?Mucous membranes moist. Eyes Other: Pupils are round equal, conjunctivae are clear, extraocular movements intact Neck Other: No neck swelling. Moving her neck easily. Resp Effort & Inspection: normal respiratory effort Auscultation: clear to auscultation bilaterally Cardio Rate: regular rate Rhythm: regular rhythm Heart sounds: S1 normal heart sound present and S2 normal heart sound present GI Other: The abdomen is flat and soft. She reports diffuse tenderness throughout the abdomen. No rebound or guarding. Back/Spine/Pelvis Other: No CVA percussion tenderness. Skin Other: Skin is dry and unremarkable Neuro Other: Awake, alert, appropriate, nontoxic, grossly neurologically intact. Extrem Other: No peripheral edema Course Course Course Narrative: Patient complains of blood in the stool as well as some upper abdominal pain off and on for 2 months, the blood is in the toilet but the stool is not melena, not black or tarry or purple She says she has some intermittent dizziness, no nausea or vomiting Labs are sent This rapid medical exam done in triage pending full evaluation by ER provider Medical Decision Making Medical Decision Making MDM Narrative: The patient is a 53-year-old woman who presents with complaints of 2 months of abdominal pains and blood in her stools. She has a benign abdomen. Her hemoglobin is normal. Her inflammatory markers are unremarkable. I do not think she has an acute surgical process. I do not think she has a dangerous GI bleed of any kind. However she describes 2 months of symptoms and she has never had a colonoscopy. The patient was offered a CT scan to evaluate for the possibility of some kind of colitis or other process but she had had a very long wait and was not eager to stay in the emergency room because of the long wait time. I do not think there is an acute emergency mandating a CT or other steady today. 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 She very likely needs a colonoscopy. Lab Data 06/27/23 13:11 06/27/23 13:11 Labs: Lab Results 06/27/23 Range/Units 13:11 WBC 7.0 (4.8-10.8) X10*3/uL RBC 4.31 (4.20-5.50) X10*6/uL Hgb 12.8 (12.0-16.0) g/dl Hct 38.4 (37.0-47.0) % MCV 89.1 (80.0-98.0) fL MCH 29.7 (27.0-33.0) pg MCHC 33.3 (31.0-35.0) g/dl RDW 13.2 (11.0-16.0) % Plt Count 321 (160-400) X10*3/uL MPV 9.0 L (9.4-12.3) fL Immature Gran % (Auto) 0.4 (0.0-0.4) % Neut % (Auto) 74.3 H (45-73) % Lymph % (Auto) 16.1 L (20-40) % [place] % (Auto) 7.7 (2-11) % Eos % (Auto) 1.1 (0-4) % Baso % (Auto) 0.4 (0-2) % Lymph # (Auto) 1.1 L (1.2-4.9) X10*3/uL [place] # (Auto) 0.5 (0.1-1.2) X10*3/uL Eos # (Auto) 0.1 (0.0-0.4) X10*3/uL Baso # (Auto) 0.0 (0.0-0.2) X10*3/uL Abs Immat Gran (auto) 0.03 (0.00-0.03) X10*3/uL Absolute Neuts (auto) 5.2 (2.0-8.3) x10*3/uL Absolute Nucleated RBC 0.000 (0.0-0.012) X10*3/uL Nucleated RBC % (auto) 0.0 (0.0-0.2) /100WBC Sodium 143 (135-145) mmol/L Potassium 4.1 (3.3-5.1) mmol/L Chloride 107 (96-108) mmol/L Carbon Dioxide 28 (22-29) mmol/L Anion Gap 12 (12-20) BUN 15 (9-16) mg/dL Creatinine 0.77 (0.5-1.4) mg/dL Estim Creat Clear Calc 83.1 Estimated GFR > 60 Random Glucose 99 (60-115) mg/dL Calcium 10.4 H D (8.4-10.2) mg/dL Total Bilirubin 0.7 (0.0-1.0) mg/dL Direct Bilirubin 0.2 (0.0-0.5) mg/dL AST 17 (5-31) U/L ALT 11 (0-31) U/L Alkaline Phosphatase 66 (39-117) U/L C-Reactive Protein 0.19 (< or = 0.50) mg/dL Total Protein 8.0 (6.5-8.0) g/dL Albumin 4.6 (3.5-5.0) g/dL Lipase 22 (8-78) U/L Urine Color Yellow Urine Appearance Clear Urine pH 5.5 (5.0-9.0) Ur Specific Leroy 1.015 (1.005-1.025) Urine Protein Negative (Neg-Trace) mg/dL Urine Glucose (UA) Negative (Negative) mg/dL Urine Ketones Negative (Negative) mg/dL Urine Blood Negative (Negative) Urine Nitrite Negative (Negative) Ur Leukocyte Esterase Negative (Negative) Urine Test NEGATIVE (NEGATIVE) Discharge Plan Discharge Clinical Impression: Blood per rectum, Epigastric abdominal pain Patient Disposition: Home, Self-Care Additional Instructions: Your laboratory testing today is very reassuring. There does not seem to be anything acutely dangerous at work. However the fact that you have had these symptoms for 2 months is still very concerning and needs follow-up soon. Please make sure that you contact your gastroenterology office in the morning to arrange a follow up appointment. I think you need an appointment to discuss these symptoms and I think you very likely will need a colonoscopy. Contact your regular doctor's office for additional advice as needed. Return to the emergency room if you are significantly worse. Prescriptions: No Action celecoxib [Celebrex] 200 mg capsule 200 mg PO DAILY PRN (Reason: pain) Qty: 30 0RF omeprazole 20 mg capsule,delayed release(DR/EC) 20 mg PO BID 14 Days Qty: 28 0RF levothyroxine 125 mcg tablet 125 mcg PO QAM Qty: 90 1RF cholecalciferol (vitamin D3) 1,250 mcg (50,000 unit) capsule 1,250 mcg PO QWEEK 90 Days Qty: 13 0RF famotidine [Pepcid] 20 mg tablet 20 mg PO BEDTIME Qty: 30 2RF Referrals: Angie Carlin MD [Primary Care Provider] - (Abdominal pain, bloody stools) Soo Martinez FNP-BC [Nurse Practitioner] - (2 months of abdominal pain and blood per rectum) Interventions: ED Discharge Assessment Last Done: 06/27/23 21:29 Discharge Date/Time: 06/27/23 21:30
--- NOTE | 2023-06-27 12:31 | ECG_ITS ---
Test Reason : pain Blood Pressure : / mmHG Vent. Rate : 067 BPM Atrial Rate : 067 BPM P-R Int : 124 ms QRS Dur : 084 ms QT Int : 380 ms P-R-T Axes : 018 002 010 degrees QTc Int : 401 ms Normal sinus rhythm Minimal voltage criteria for LVH, may be normal variant ( R in aVL ) Borderline ECG When compared with ECG of 21-MAR-2017 13:19, No significant change was found Referred By: Clark Joseph Electronically Signed By:Delmar Fountain
[2023-06-27 13:16] LABS: MANUAL DIFF FLAG NO
[2023-06-27 13:17] LABS: Basophils Percent Auto 0.4 % (0-2); Eosinophils Absolute Auto 0.1 X10*3/uL (0.0-0.4); Eosinophils Percent Auto 1.1 % (0-4); Hematocrit 38.4 % (37.0-47.0); Hemoglobin 12.8 g/dl (12.0-16.0); Imm Gran Abs Auto 0.03 X10*3/uL (0.00-0.03); Imm Gran Pct Auto 0.4 % (0.0-0.4); Lymphocytes Absolute Auto 1.1 X10*3/uL (1.2-4.9); Lymphocytes Percent Auto 16.1 % (20-40); Mean Corpuscular HGB Conc 33.3 g/dl (31.0-35.0); Mean Corpuscular Hemoglobin 29.7 pg (27.0-33.0); Mean Corpuscular Volume 89.1 fL (80.0-98.0); Monocytes Absolute Auto 0.5 X10*3/uL (0.1-1.2); Monocytes Percent Auto 7.7 % (2-11); Neutrophils Absolute Auto 5.2 x10*3/uL (2.0-8.3); Neutrophils Percent Auto 74.3 % (45-73); Platelet Count 321 X10*3/uL (160-400); Red Blood Count 4.31 X10*6/uL (4.20-5.50); Red Cell Distribution Width 13.2 % (11.0-16.0)
[2023-06-27 13:20] LABS: Appearance Urine Clear; Color Urine Yellow; Glucose Urine UA Negative (Negative); Leukocyte Esterase Urine Negative (Negative); Nitrite Urine Negative (Negative); PH 5.5 (5.0-9.0); Specific Gravity - Urine 1.015 (1.005-1.025); Urine Blood Negative (Negative); Urine Ketones Negative (Negative); Urine Protein Negative (Neg-Trace)
[2023-06-27 13:21] LABS: UPreg QC Valid YES; Urine Pregnancy NEGATIVE (NEGATIVE)
[2023-06-27 13:34] LABS: Alanine Aminotransferase 11 U/L (0-31); Albumin Level 4.6 g/dL (3.5-5.0); Alkaline Phosphatase 66 U/L (39-117); Anion Gap 12 (12-20); Aspartate Amino Transferase 17 U/L (5-31); Bilirubin Direct 0.2 mg/dL (0.0-0.5); Bilirubin Total 0.7 mg/dL (0.0-1.0); Blood Urea Nitrogen 15 mg/dL (9-16); Calcium 10.4 mg/dL (8.4-10.2); Carbon Dioxide 28 mmol/L (22-29); Chloride 107 mmol/L (96-108); Creatinine Clr Calc Pharmacy 83.1; Estimated Glomerular Filt Rate > 60; Glucose Random 99 mg/dL (60-115); Lipase 22 U/L (8-78); Potassium 4.1 mmol/L (3.3-5.1); Sodium 143 mmol/L (135-145)
[2023-06-27 20:15] VITALS: BP 130/64; PULSE 65; RESP 18; TEMP 36.6; O2SAT 100
[2023-06-27 20:27] VITALS: BP 107/61; PULSE 70; RESP 14; TEMP 36.4; O2SAT 98
[2023-06-27 21:19] LABS: C Reactive Protein 0.19 mg/dL (< or = 0.50)
== END 2023-06-27 21:30 | disposition home or self-care (01) ==
PROVIDERS: Physician Assistant Medical; Emergency Provider Emergency Medicine; PCP Internal Medicine
DX: K62.5 Hemorrhage of anus and rectum (principal); R10.13 Epigastric pain; E78.5 Hyperlipidemia, unspecified; Z86.19 Personal history of other infectious and parasitic diseases; Z79.899 Other long term (current) drug therapy
CPT/HCPCS: 36415; 80048; 80076; 81003; 81025; 83690; 85025; 86140; 93005; 99283; 99284

== ENCOUNTER → 2023-06-27 12:31 | Outpatient (BNV) | payer OTHER, SELFPAY | PROVIDERS: Emergency Provider Emergency Medicine; PCP Internal Medicine; Visit Provider Internal Medicine Cardiovascular Disease | DX: R94.31 Abnormal electrocardiogram [ECG] [EKG] (principal) | CPT/HCPCS: 93010 ==

== ENCOUNTER 2023-07-10 15:21 | Outpatient (AMB) | payer OTHER, SELFPAY ==
--- NOTE | 2023-07-10 15:42 | MHC.OFFVIS ---
Intake Vital Signs 07/10/23 15:45 Height 5 ft 2 in Weight 182 lb 15.739 oz BMI 33.5 BP 122/57 L Blood Pressure Location Lt brachial Position Sitting Pulse 83 Intake Visit Reasons: Discuss [place] & Upper Endo / rectal bleeding Intake Note: Tomeka presents in the office as a follow up to discuss colonoscopy and EGD - rectal bleeding. CC: She has been having a lot of pains in the lower abdomen and sometimes in the epigastric region. She states that it feels like there is a needle and the pain sends her to the bathroom but when she wipes there is only blood. She states that it is very uncomfortable. She has to miss work a lot of the time and she is having the pains right now. She states that she does have constipation due to the thyroid medication. [employer] Operator Required: No Allergies No Known Allergies Allergy (Mild, Verified 07/10/23 15:45) NOT APPLICABLE HPI Discuss [place] & Upper Endo / rectal bleeding HPI Details LAST VISIT: Epigastric pain Patient reports epigastric discomfort. She can take famotidine at bedtime and omeprazole 40 mg half an hour before breakfast. Avoid dietary triggers. GERD (gastroesophageal reflux disease) Encourage patient to avoid dietary triggers and late night snacking. Staying upright for minimum 3 hours after meals discussed with patient. Will check for H pylori again. Will treat empirically positive. Continue PPI and H2 víctor IBS (irritable bowel syndrome) Occasional loose stools, however patient reports that she is constipated for removed our. Continue taking Citrucel in the morning and Senokot at night time. Patient was also encouraged to increase fluid intake and activity to promote better bowel motility. Low FODMAP diet encouraged. I will see patient in 5 weeks to discuss upper endoscopy and colonoscopy. Patient is agreeable to this plan and verbalizes understanding of instructions. She was given the opportunity to ask questions and all questions answered. ? Thank you for allowing me participate in her care Plan Orders Orders H pylori Ag Stool 12/01/22 K21.9 - Gastro-esophageal reflux disease without esophagitis Medications Changed From famotidine 20 mg PO BID 30 tabs 0RF K21.9 - Gastro-esophageal reflux disease without esophagitis To famotidine (Pepcid) 20 mg PO BEDTIME 30 tabs 2RF K21.9 - Gastro-esophageal reflux disease without esophagitis Refilled methylcellulose (laxative) (Citrucel) take it with full glass of water 500 mg PO DAILY 30 tabs 2RF K59.00 - Constipation, unspecified Discontinued metronidazole Discontinued Reason: Patient no longer taking 1,000 mg (2 x 500 mg) PO BID 14 days 56 tabs 0RF A04.8 - Other specified bacterial intestinal infections tetracycline Discontinued Reason: Patient no longer taking 500 mg PO Q12H 14 days 28 caps 0RF A04.8 - Other specified bacterial intestinal infections TODAY'S VISIT Patient is here today for follow-up. Patient reports that her symptoms of acid reflux have suppressed. Currently patient is taking famotidine and omeprazole. Treated in the past twice for H pylori. Last treatment patient states that she completed the whole regimen except for couple days. Patient never returned to the office to get retested. Here today complaining of severe abdominal cramping when she needs to have a bowel movement. Currently not moving her bowels well. Patient tried laxative and fiber supplement, however she continues to be constipated. Patient reports burning sensation and pain when having a bowel movement patient strains many times in order to have a bowel movement which results in small amount of bleeding after. [facility] Medical History (Updated 07/12/23 @ 11:32 by Soo Martinez [facility]) History of Helicobacter pylori infection Polyarthralgia Epigastric pain Obesity (BMI 30.0-34.9) Left ankle sprain Vitamin D deficiency Perimenopause Iron deficiency anemia Dyslipidemia Acquired hypothyroidism Surgical History No pertinent past surgical history Family History Maternal Uncle Mental health disorder Social History Housing: House Alcohol intake: never Patient Tobacco Use Status: Never used Tobacco e-Cigarette/Vaping Use: Never Used service: No Current occupational status: employed Cognitive needs: No Hearing needs: No Vision needs: Yes Review of Systems Const Denies weight gain and Denies weight loss ENT Reports no additional complaints, Denies dysphagia and Denies odynophagia Card Reports no additional complaints Resp Reports no additional complaints GI Reports abdominal pain, Denies belching, Denies melena, Reports bloating, Denies change in bowel habits, Reports constipation, Reports GI cramping, Denies dysphagia, Denies excessive flatus, Denies dyspepsia, Denies heartburn, Denies diarrhea, Denies loose stools, Denies nausea, Denies odynophagia, Denies vomiting and Reports other (Rectal burning) Reports no additional complaints Musc Reports no additional complaints Neuro Reports no additional complaints Psych Reports no additional complaints Endo Reports no additional complaints Physical Exam Vital Signs: Last Vital Signs Pulse 83 07/10/23 15:45 BP 122/57 L 07/10/23 15:45 BMI result Body Mass Index 33.5 Const General: healthy appearing, no acute distress and well developed Nutritional Appearance: obese Orientation/consciousness: patient oriented x3 Resp Effort & Inspection: normal respiratory effort, able to speak in complete sentences, no tracheal deviation and symmetric chest movement Auscultation: clear to auscultation bilaterally Cardio Rate: regular rate GI Inspection: Yes normal to inspection, No distended and Yes obesity Palpation (GI): Soft to palpation, not firm, nontender and No hepatosplenomegaly present Auscultation: normal bowel sounds General: Yes no CVA tenderness Back/Spine/Pelvis Back: no CVA tenderness Skin General skin exam: elasticity normal, turgor normal and dry skin Neuro General: patient oriented x3 Psych Appearance: grossly normal Mental Status: mental status grossly normal Assessment & Plan Assessment & Plan (1) Epigastric pain: Code(s): R10.13 - Epigastric pain (2) History of Helicobacter pylori infection: Code(s): Z86.19 - Personal history of other infectious and parasitic diseases (3) GERD (gastroesophageal reflux disease): Code(s): K21.9 - Gastro-esophageal reflux disease without esophagitis Qualifiers: Esophagitis presence: esophagitis presence not specified Qualified Code(s): K21.9 - Gastro-esophageal reflux disease without esophagitis (4) IBS (irritable bowel syndrome): Code(s): K58.9 - Irritable bowel syndrome without diarrhea Qualifiers: Irritable bowel syndrome type: with constipation Qualified Code(s): K58.1 - Irritable bowel syndrome with constipation (5) Chronic idiopathic constipation: Code(s): K59.04 - Chronic idiopathic constipation Plan Patient reports left lower quadrant pain and rectal burning when having urge to have a bowel movement. Patient will start taking Colace 2 capsules with to yousuf mcbride every evening. Hydrocortisone ordered. Will send patient for CT scan. Currently her symptoms of acid reflux are suppressed. Continue avoiding dietary triggers history of H pylori. Will send patient for upper endoscopy. She will however return in 5 weeks to make sure that her bowels are moving better. Patient will call the office if she will have any GI concerning symptoms. She is agreeable to this plan and verbalizes understanding of instructions. She was given the opportunity to ask questions and all questions answered. Thank you for allowing me to participate in her care Orders: Orders CT abdomen pelvis w IV con 07/10/23 R10.9 - Unspecified abdominal pain Blood Urea Nitrogen 07/10/23 R10.11 - Right upper quadrant pain Creatinine 07/10/23 R10.11 - Right upper quadrant pain Medications: New docusate sodium 200 mg (2 x 100 mg) PO BEDTIME 180 caps 3RF K59.00 - Constipation, unspecified sennosides (Natural Senna Laxative) 17.2 mg (2 x 8.6 mg) PO BEDTIME 60 tabs 3RF constipation K59.00 - Constipation, unspecified hydrocortisone 2.5% (Proctosol HC) 1 appl AL BID-QID PRN 30 grams 0RF hemorrhoids Coding Level of Care Code Est Pt Level 4 (99215) Diagnoses Epigastric pain R10.13 History of Helicobacter pylori infection Z86.19 Gastroesophageal reflux disease, unspecified whether esophagitis present K21.9 Esophagitis presence: esophagitis presence not specified Irritable bowel syndrome with constipation K58.1 Irritable bowel syndrome type: with constipation Chronic idiopathic constipation K59.04 Time Spent (min) 35 Comment 20 minutes spent with patient and additional 15 minutes spent reviewing her records
[2023-07-10 15:45] VITALS: BP 122/57; PULSE 83; BMI 33.5
== END 2023-07-10 16:20 | disposition home or self-care (01) ==
PROVIDERS: PCP Internal Medicine; Visit Provider Nurse Practitioner Family
DX: R10.13 Epigastric pain (principal); Z86.19 Personal history of other infectious and parasitic diseases; K21.9 Gastro-esophageal reflux disease without esophagitis; K58.1 Irritable bowel syndrome with constipation; K59.04 Chronic idiopathic constipation
CPT/HCPCS: 99214

== ENCOUNTER → 2023-07-10 15:21 | Outpatient (BNVA) | payer OTHER, SELFPAY | PROVIDERS: PCP Internal Medicine; Visit Provider Nurse Practitioner Family ==

== ENCOUNTER 2023-08-13 08:51 | Outpatient (REF) | payer OTHER, SELFPAY ==
[2023-08-13 10:37] LABS: Blood Urea Nitrogen 17 mg/dL (9-16); Estimated Glomerular Filt Rate > 60
== END 2023-08-13 08:52 | disposition home or self-care (01) ==
LOC: HO.HMGCLDS 08:51
PROVIDERS: PCP Internal Medicine; Visit Provider Nurse Practitioner Family
DX: R10.11 Right upper quadrant pain (principal)
CPT/HCPCS: 36415; 82565; 84520

== ENCOUNTER 2023-08-14 14:44 | Outpatient (AMB) | payer OTHER, SELFPAY ==
--- NOTE | 2023-08-14 14:46 | MHC.OFFVIS ---
Intake Vital Signs 08/14/23 14:49 Height 5 ft 2 in Weight 180 lb 12.465 oz BMI 33.1 BP 113/62 Blood Pressure Location Lt brachial Position Sitting Pulse 75 Intake Visit Reasons: 5 week f/u per Vaishali Intake Note: Tomeka presents in the office as a 5 week follow up per vaishali. CC: She states that she is feeling worse than the last time you seen her She feels like something in her system is going crazy. Histologic Aide Required: No Allergies No Known Allergies Allergy (Mild, Verified 08/14/23 14:49) NOT APPLICABLE HPI 5 week f/u per Vaishali HPI Details LAST VISIT Epigastric pain History of Helicobacter pylori infection GERD (gastroesophageal reflux disease) IBS (irritable bowel syndrome) Chronic idiopathic constipation Plan Patient reports left lower quadrant pain and rectal burning when having urge to have a bowel movement. Patient will start taking Colace 2 capsules with to yousuf mcbride every evening. Hydrocortisone ordered. Will send patient for CT scan. Currently her symptoms of acid reflux are suppressed. Continue avoiding dietary triggers history of H pylori. Will send patient for upper endoscopy. She will however return in 5 weeks to make sure that her bowels are moving better. Patient will call the office if she will have any GI concerning symptoms. She is agreeable to this plan and verbalizes understanding of instructions. She was given the opportunity to ask questions and all questions answered. ? Thank you for allowing me to participate in her care Orders Orders CT abdomen pelvis w IV con 07/10/23 R10.9 Blood Urea Nitrogen 07/10/23 R10.11 Creatinine 07/10/23 R10.11 Medications New docusate sodium 200 mg (2 x 100 mg) PO BEDTIME 180 caps 3RF K59.00 sennosides (Natural Senna Laxative) 17.2 mg (2 x 8.6 mg) PO BEDTIME 60 tabs 3RF constipation K59.00 hydrocortisone 2.5% (Proctosol HC) [address] BID-QID PRN 30 grams 0RF hemorrhoids TODAY'S VISIT Patient is here today for follow-up. Patient reports that she was taking senna and Colace and she would have incomplete bowel emptying. Patient had small bowel movement thought she was finished and then had to come back immediately few minutes later to have another bowel movement. Patient reports she has rectal pain feels like something is blocking her from having normal bowel movement. Patient reports that she has blood when passing stools. Patient reports that she stopped taking stool softeners as she felt that her stool worse to watery. Patient denies dyspepsia, dysphagia or odynophagia. Has colonoscopy scheduled for October 29, will see if patient can be seen sooner. Use hydrocortisone cream with some effect. Patient also it Sitz baths with Epsom salt. Patient is taking omeprazole and famotidine and her symptoms of acid reflux are suppressed for the most part. Patient has a history of H pylori. Upper endoscopy also is ordered. [facility] Medical History (Updated 07/12/23 @ 11:32 by Soo Martinez [facility]) History of Helicobacter pylori infection Polyarthralgia Epigastric pain Obesity (BMI 30.0-34.9) Left ankle sprain Vitamin D deficiency Perimenopause Iron deficiency anemia Dyslipidemia Acquired hypothyroidism Surgical History No pertinent past surgical history Family History Maternal Uncle Mental health disorder Social History Housing: House Alcohol intake: never Patient Tobacco Use Status: Never used Tobacco e-Cigarette/Vaping Use: Never Used service: No Current occupational status: employed Cognitive needs: No Hearing needs: No Vision needs: Yes Review of Systems Const Denies weight gain and Denies weight loss ENT Reports no additional complaints, Denies dysphagia and Denies odynophagia Card Reports no additional complaints Resp Reports no additional complaints GI Denies abdominal pain, Denies belching, Denies melena, Reports bloating, Reports hematochezia, Reports constipation, Denies dysphagia, Denies excessive flatus, Denies dyspepsia, Denies heartburn, Denies diarrhea, Denies loose stools, Denies nausea, Denies odynophagia and Denies vomiting Reports no additional complaints Musc Reports no additional complaints Neuro Reports no additional complaints Psych Reports no additional complaints Endo Reports no additional complaints Physical Exam Vital Signs: Last Vital Signs Pulse 75 08/14/23 14:49 BP 113/62 08/14/23 14:49 BMI result Body Mass Index 33.1 Const General: healthy appearing and no acute distress Nutritional Appearance: obese Orientation/consciousness: patient oriented x3 Resp Effort & Inspection: normal respiratory effort, able to speak in complete sentences, no tracheal deviation and symmetric chest movement Auscultation: clear to auscultation bilaterally Cardio Rate: regular rate GI Inspection: Yes normal to inspection, No distended and Yes obesity Palpation (GI): Soft to palpation, not firm, nontender and No hepatosplenomegaly present Auscultation: normal bowel sounds Rectal Exam - Female: Internal hemorrhoid(s) present General: Yes no CVA tenderness Back/Spine/Pelvis Back: no CVA tenderness Skin General skin exam: elasticity normal, turgor normal and dry skin Neuro General: patient oriented x3 Psych Appearance: grossly normal Mental Status: mental status grossly normal Assessment & Plan Assessment & Plan (1) History of Helicobacter pylori infection: Code(s): Z86.19 - Personal history of other infectious and parasitic diseases (2) IBS (irritable bowel syndrome): Code(s): K58.9 - Irritable bowel syndrome without diarrhea Qualifiers: Irritable bowel syndrome type: without diarrhea Qualified Code(s): K58.9 - Irritable bowel syndrome without diarrhea (3) Chronic idiopathic constipation: Code(s): K59.04 - Chronic idiopathic constipation (4) Rectal pain: Code(s): K62.89 - Other specified diseases of anus and rectum (5) Internal hemorrhoid: Code(s): K64.8 - Other hemorrhoids Plan Patient will stop taking senna and will start taking Dulcolax. Take Colace. Patient can use preparation H suppositories and cream alternating. Message sent to surgical schedulers to see if they can bulk the procedure sooner. Rectal Exam performed with solutions sales consultant Sumaya HOGUE present. Internal hemorrhoids/mass palpated with small amount of blood. Patient reported tenderness during the exam. Patient will return in 3 weeks, sooner on as needed basis. Patient is agreeable to this plan and verbalizes understanding of instructions. She was given the opportunity to ask questions all questions answered. Thank you for allowing me to participate in her care Medications: New bisacodyl (Dulcolax (bisacodyl)) 10 mg (2 x 5 mg) PO BEDTIME 60 tabs 4RF Discontinued sennosides (Natural Senna Laxative) Discontinued Reason: Doctor's Order 17.2 mg (2 x 8.6 mg) PO BEDTIME 60 tabs 3RF constipation K59.00 - Constipation, unspecified Coding Level of Care Code Est Pt Level 4 (19494) Diagnoses History of Helicobacter pylori infection Z86.19 Irritable bowel syndrome without diarrhea K58.9 Irritable bowel syndrome type: without diarrhea Chronic idiopathic constipation K59.04 Rectal pain K62.89 Internal hemorrhoid K64.8 Time Spent (min) 35 Comment 20 minutes spent with patient and additional 15 minutes spent reviewing her records
[2023-08-14 14:49] VITALS: BP 113/62; PULSE 75; BMI 33.1
== END 2023-08-14 15:14 | disposition home or self-care (01) ==
PROVIDERS: PCP Internal Medicine; Visit Provider Nurse Practitioner Family
DX: Z86.19 Personal history of other infectious and parasitic diseases (principal); K58.9 Irritable bowel syndrome, unspecified; K59.04 Chronic idiopathic constipation; K62.89 Other specified diseases of anus and rectum; K64.8 Other hemorrhoids
CPT/HCPCS: 99214

== ENCOUNTER → 2023-08-14 14:44 | Outpatient (BNVA) | payer OTHER, SELFPAY | PROVIDERS: PCP Internal Medicine; Visit Provider Nurse Practitioner Family ==

== ENCOUNTER 2023-08-16 06:19 | Day surgery (SDC) | payer OTHER, SELFPAY ==
[2023-08-16 07:04] VITALS: BMI 33.1
[2023-08-16 07:19] VITALS: BP 101/65; PULSE 73; RESP 16; TEMP 36.7; O2SAT 97
[2023-08-16] MEDS: Lactated Ringers 1,000 ML 100 ML IVCONT (07:24)
--- NOTE | 2023-08-16 07:25 | P.CONAN_ITS ---
HPI - Anesthesia Eval Consult details Narrative: 53 yo female patient for EGD, Colonoscopy [facility] Active Problems Active Problems: All Active Problems History of Helicobacter pylori infection (Acute) H. pylori infection (Acute) Polyarthralgia (Acute) Epigastric pain (Acute) Obesity (BMI 30.0-34.9) BMI 33.1 Vitamin D deficiency (Acute) Perimenopause (Acute) Dyslipidemia (Acute) Acquired hypothyroidism (Acute) Snores but never tested for YNES Past Medical History Medical History (Updated 07/12/23 @ 11:32 by Soo Martinez [facility]) History of Helicobacter pylori infection Polyarthralgia Epigastric pain Obesity (BMI 30.0-34.9) Left ankle sprain Vitamin D deficiency Perimenopause Iron deficiency anemia Dyslipidemia Acquired hypothyroidism Family History Family History Maternal Uncle Mental health disorder Family history of problems with anesthesia: No Surgical History Surgical History No pertinent past surgical history History of Problems with Anesthesia: No Social History Social History Housing: House Alcohol intake: never Patient Tobacco Use Status: Never used Tobacco e-Cigarette/Vaping Use: Never Used Use of substances other than those prescribed or required for medical reasons: No Are you DNR?: No Advance Directives: No Advance Directives Information Provided: Yes service: No Current occupational status: employed Cognitive needs: No Hearing needs: No Vision needs: Yes Meds Allergies Allergy/AdvReac Type Severity Reaction Status Date / Time No Known Allergies Allergy Mild NOT Verified 08/14/23 14:49 APPLICABLE Exam Height,Weight and Vital Signs: Height 5 ft 2 in Weight 82.157 kg Last Vital Signs Temp 98.1 F 08/16/23 07:19 Pulse 73 08/16/23 07:19 Resp 16 08/16/23 07:19 BP 101/65 08/16/23 07:19 Pulse Ox 97 08/16/23 07:19 O2 Del Method Room Air 08/16/23 07:19 Airway Mallampati Class: II TM Dist: >3cm Neck ROM: Full Loose/Missing/Broken Teeth: Yes (Missing teeth back top and bottom left and right. Denies broken or loose teeth) Heart: RRR Lungs: CTAB Assessment and Plan Assessment Anesthesia Assessment: Anesthesia Plan Discussed and Chart Reviewed Final Anesthetic Review Family History of Problems with Anesthesia: No History of Problems with Anesthesia: No NPO: Yes ASA Class: II Final Preanesthetic Review: No Changes in Pt Med Stat, Meds/Allgs Chart Reviewed, Consent Obtained/Reviewed and Anes Risks/Benef Reviewed Patient Risk: Intermediate Procedure Risk: Low Assessment/Block/Sedation in SS: Assess/Block/Sedation-SS Anesthetic Plan Anesthetic Plan: MAC: and TIVA Disposition: Standard PACU
--- NOTE | 2023-08-16 08:10 | MHC.SHP ---
Pre-Procedural Eval Section A - 24 Hr Update-Section A only Date of Service: 08/16/23 Section B - Complete if H&P > 30 days Chief Complaint: Other specified diseases of anus and rectum Relevant Family History (Specify if Yes): No Relevant Social History: None Present Medications: see Short Stay Collaborative assessment Medical History: Significant History (History of Helicobacter pylori infection Polyarthralgia Epigastric pain Obesity (BMI 30.0-34.9) Left ankle sprain Vitamin D deficiency Perimenopause Iron deficiency anemia Dyslipidemia Acquired hypothyroidism) History of Previous Operations: No relevant previous surgery Allergies: Allergies Allergy/AdvReac Type Severity Reaction Status Date / Time No Known Allergies Allergy Mild NOT Verified 08/14/23 14:49 APPLICABLE Review of Systems Sugical H&P ROS: Negative: Constitution, Cardiovascular, Respiratory, Neurological, Psychiatric, Hem-Onc, Allergic/Immunologic, Gastrointestinal, Genitourinary, Musculoskeletal, Integumentary, Endocrine and Eyes/Ears/Nose/Throat Exam Surgical H&P Exam: Normal: HEENT, Normal: Heart, Normal: Lungs, Normal: Extremities, Normal: Abdomen, Normal: Skin and Normal: Neurological Plan Diagnosis/Plan: Unchanged I have reviewed the history and physical and performed a pertinent physical examination on my patient. No changes have occurred unless specified. Time Spent With Patient Time: Total time managing care of this patient today ____ minutes.
--- NOTE | 2023-08-16 08:12 | W.PM.OPN ---
Operative Note Operative Note Date of Service: 08/16/23 Narrative: Operative Information Procedure Description: EGD, Colonoscopy Indication: GERD, screening Anesthesia: MAC FLEXIBLE TRANSORAL UPPER GASTROINTESTINAL ENDOSCOPY AND COLONOSCOPY PROCEDURE NOTE UPPER ENDOSCOPY Consent: Indications for the procedure and potential complications of bleeding, perforation, reaction to medications and missed diagnosis were discussed with the patient and informed consent was obtained. Instrument: Olympus GIF H 190 J mid size upper endoscope Monitoring: Vital signs and clinical assessment, continuous EKG monitoring, Pulse oximetry, Carbon Dioxide monitoring and blood pressure monitoring were done throughout the procedure. Procedure: The patient was placed in the left lateral decubitis position and pre-procedure medications were administered and a bite block was placed. The endoscope was inserted into the mouth and advanced under direct vision to the third part of duodenum. A careful inspection was made as the upper endoscope was withdrawn including a retroflexed examination of the proximal stomach; Findings and interventions are described below. Findings: Larynx:normal Esophagus: GE junction at 36 cm, diaphragm hiatus at 36 cm, normal mucosa Stomach: Normal mucosa. Grade 2 flap valve on retroflexed examination of the cardia. Duodenum: Normal bulb and descending duodenum, Intervention: none COLONOSCOPY Instrument: Olympus variable stiffness pediatric scope 190L Colonoscopy Monitoring: Vital signs and clinical assessment, continuous EKG monitoring, Pulse oximetry, Carbon Dioxide monitoring and blood pressure monitoring were done throughout the procedure. Colon withdrawal time was 12 minutes. Procedure: The patient was placed in the left lateral decubitis position and pre-procedure medications were administered. After a digital rectal examination of the ano-rectum, the video colonoscope was inserted into the rectum and advanced through the colon to the cecum/TI. The colonoscope was slowly withdrawn in a retrograde panoramic fashion and the colon mucosa was carefully examined including a retroflexed view of the rectum. Findings and interventions are described below. Procedure Difficulty:moderate Findings: Terminal Ileum-normal Cecum:normal Ascending Colon: normal Transverse Colon -normal Descending Colon: melanosis coli Sigmoid Colon: melanosis coli Rectum: Retroflexion not done due to anal mass and small rectal vault Anorectum - abnormal, stricture, as scope passed there was persistent oozing, an ulcerated lesion was noted in the anal canal with surrounding induration and irregular tissue margins, hemospray was applied which helped stop the bleeding Colon preparation: [place] Bowel Preparation Scale Right colon; 2 Transverse colon: 2 Left colon; 2 (0 = Unprepared colon segment with mucosa not seen due to solid stool that cannot be cleared. 1 = Portion of mucosa of the colon segment seen, but other areas of the colon segment not well seen due to staining, residual stool and/or opaque liquid. 2 = Minor amount of residual staining, small fragments of stool and/or opaque liquid, but mucosa of colon segment seen well. 3 = Entire mucosa of colon segment seen well with no residual staining, small fragments of stool or opaque liquid) Impression and Post Procedure Diagnosis: Endoscopy Findings: normal Colonoscopy Findings: melanosis coli Plan: Repeat Colonoscopy will depend on colorectal surgical assessment of anal mass, will refer to Dr Casper High fiber diet leaflet avoid straining at stool, epsom salts and sitz bath, anusol supps or cream Above findings were reviewed with the patient and relevant handouts were provided if indicated.
[2023-08-16 09:06] VITALS: BP 92/64; PULSE 85; RESP 16; TEMP 36.1; O2SAT 97
[2023-08-16 09:24] VITALS: BP 115/63; PULSE 78; RESP 18; TEMP 36.1; O2SAT 98
== END 2023-08-16 10:08 | disposition home or self-care (01) ==
PROVIDERS: PCP Internal Medicine; Visit Provider Internal Medicine Gastroenterology
PROC: (CPT 45378; principal; 2023-08-16 08:30)
DX: Z12.11 Encounter for screening for malignant neoplasm of colon (principal); K62.89 Other specified diseases of anus and rectum; K62.4 Stenosis of anus and rectum; K63.89 Other specified diseases of intestine; K64.8 Other hemorrhoids; K59.04 Chronic idiopathic constipation; K58.9 Irritable bowel syndrome, unspecified; K21.9 Gastro-esophageal reflux disease without esophagitis; K44.9 Diaphragmatic hernia without obstruction or gangrene; Z86.19 Personal history of other infectious and parasitic diseases; M25.50 Pain in unspecified joint; E55.9 Vitamin D deficiency, unspecified; D50.9 Iron deficiency anemia, unspecified; E78.5 Hyperlipidemia, unspecified; E66.9 Obesity, unspecified; Z68.33 Body mass index [BMI] 33.0-33.9, adult; Z79.899 Other long term (current) drug therapy
CPT/HCPCS: 45378; 43235; J1596; J2704

== ENCOUNTER → 2023-08-16 06:19 | Outpatient (BNV) | payer OTHER, SELFPAY | PROVIDERS: PCP Internal Medicine; Visit Provider Internal Medicine Gastroenterology | DX: Z12.11 Encounter for screening for malignant neoplasm of colon (principal); K63.89 Other specified diseases of intestine; K62.89 Other specified diseases of anus and rectum; K21.9 Gastro-esophageal reflux disease without esophagitis | CPT/HCPCS: 43235; 45382 ==

== ENCOUNTER 2023-08-29 06:09 | Outpatient (REF) | payer OTHER, SELFPAY ==
--- NOTE | ~2023-08-29 | CT_ITS ---
EXAMINATION: CT ABDOMEN AND PELVIS WITH CONTRAST CLINICAL INFORMATION: Abdominal pain. COMPARISON: CT abdomen and pelvis dated 03/21/2017. TECHNIQUE: Multidetector volumetric images were obtained from the superior aspect of the liver through the pubic symphysis following administration 85 mL of Omnipaque 350 intravenous contrast. Sagittal and coronal reformatted images were obtained on the technologist's workstation. Oral contrast: No This CT examination was performed using dose optimization techniques as appropriate, variously including the following: *Automated exposure control *Adjustment of mA and/or kV according to patient size (this includes techniques or standardized protocols for targeted exams where dose is matched to indication/reason for exam; i.e. extremities or head) *Use of iterative reconstruction technique DLP: 495 mGy-cm FINDINGS: LUNG BASES: The visualized lung bases are unremarkable. LIVER, GALLBLADDER, AND BILIARY TREE: The liver is normal in size, shape, and attenuation. There is interim appearance of a large number of low to intermediate attenuation hepatic solid lesions. One of the largest within the right hepatic lobe is seen anteriorly in segment 8 (3:13), measuring 3.1 x 2.5 cm, with a postcontrast Hounsfield value of 87.9 units. A further dominant lesion within the hepatic tail measures 3.7 x 3.0 cm (3:25), with a postcontrast Hounsfield value of 74.7 units. Within the left hepatic lobe (3:20), a dominant 4.3 x 3.5 cm lesion is seen with postcontrast Hounsfield value of 72.8 units. No biliary ductal dilatation is present. The gallbladder is unremarkable with no evidence of radiopaque gallstones, gallbladder wall thickening, or obvious pericholecystic inflammatory changes. PANCREAS: Unremarkable. SPLEEN: Unremarkable. ADRENAL GLANDS: Unremarkable. KIDNEYS AND URETERS: The kidneys are normal in size, shape, and attenuation. No hydronephrosis, hydroureter, or calculi seen. No perinephric stranding. BLADDER: Unremarkable. GASTROINTESTINAL TRACT: There is a moderate colonic stool burden. There is marked wall thickening of the anorectal junction. There is perirectal soft tissue density extending into the right ischioanal fossa. There are several enlarged perirectal and perianal lymph nodes, the largest measuring 2.4 x 1.4 cm, 2.1 x 1.6 cm and 1.8 x 1.4 cm (3:64, 65 and 68). The fat plane interposed between the posterior vaginal wall and the anterior anorectal junction is obscured. No derick obstruction, free intraperitoneal air or abscess is seen. No significant diverticulosis or diverticulitis is seen. The vermiform appendix is unremarkable. ABDOMINAL WALL: No significant hernia is appreciated. LYMPH NODES: There are enlarged perirectal and perianal lymph nodes, as detailed. Within the right internal iliac chain (3:71 and 6:59), a 1.9 x 1.5 cm lymph node is seen. There is an enlarged right inguinal lymph node measuring 1.7 x 1.5 cm (3:79). VASCULAR: Unremarkable. PELVIC VISCERA: As above, the fat plane interposed between the posterior vaginal vault and the anterior anorectal margin is obscured. There is a small amount of low-attenuation free fluid in the left dependent pelvis. OSSEOUS STRUCTURES: There is marked degenerative disc disease at L5-S1. There is multi-level mild thoracolumbar spondylosis. No acute or aggressive osseous finding is noted. 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 There is anorectal wall thickening, and abnormal soft tissue density extends into the right ischiorectal fossa. The fat plane interposed between the vaginal vault and the distal rectum is obscured. There are pathologically enlarged perirectal, perianal, right internal iliac chain and right inguinal lymph nodes. General Surgery evaluation and management is recommended, including anorectal examination, to include physical examination and possibly flexible sigmoidoscopy/biopsy. A preliminary report was provided by the [facility] on 08/29/2023. Fleischner guidelines were followed.
[2023-08-29] MEDS: iohexoL 350 MG/ML 100 ML INFUS..BTL IV (10:18)
[2023-08-29] MEDS: Barium Sulfate Oral (Mocha) 450 ML ORAL.SUSP 900 ML PO (10:19)
== END 2023-08-29 06:10 | disposition home or self-care (01) ==
LOC: HO.CT 06:09
PROVIDERS: PCP Internal Medicine; Visit Provider Nurse Practitioner Family
DX: R10.9 Unspecified abdominal pain (principal)
CPT/HCPCS: 74177; Q9967

== ENCOUNTER 2023-09-03 09:09 | Outpatient (AMB) | payer OTHER, SELFPAY ==
[2023-09-03 09:19] VITALS: BP 104/53; PULSE 73; BMI 31.9
--- NOTE | 2023-09-03 09:19 | A.OFFVIS_ITS ---
Vital Signs 09/03/23 09:19 Height 5 ft 2 in Weight 174 lb 9.698 oz BMI 31.9 BP 104/53 L Blood Pressure Location Lt brachial Position Sitting Pulse 73 Pulse Source Pulse Oximeter Intake Visit Reasons: CT scan results Intake Note: Pt presents to the office today for CT scan results. Pt states she is feeling well. Allergies No Known Allergies Allergy (Mild, Verified 09/03/23 09:22) NOT APPLICABLE HPI HPI CT scan results: Details: LAST VISIT: History of Helicobacter pylori infection IBS (irritable bowel syndrome) Chronic idiopathic constipation Rectal pain Internal hemorrhoid Plan Patient will stop taking senna and will start taking Dulcolax. Take Colace. Patient can use preparation H suppositories and cream alternating. Message sent to surgical schedulers to see if they can bulk the procedure sooner. Rectal Exam performed with sales operations analyst Sumaya HOGUE present. Internal hemorrhoids/mass palpated with small amount of blood. Patient reported tenderness during the exam. Patient will return in 3 weeks, sooner on as needed basis. Patient is agreeable to this plan and verbalizes understanding of instructions. She was given the opportunity to ask questions all questions answered. ? Thank you for allowing me to participate in her care Medications New bisacodyl (Dulcolax (bisacodyl)) 10 mg (2 x 5 mg) PO BEDTIME 60 tabs 4RF Discontinued sennosides (Natural Senna Laxative) Discontinued Reason: Doctor's Order 17.2 mg (2 x 8.6 mg) PO BEDTIME 60 tabs 3RF constipation K59.00 UPPER ENDOSCOPY AND COLONOSCOPY Findings: Larynx:normal Esophagus: GE junction at 36 cm, diaphragm hiatus at 36 cm, normal mucosa Stomach: Normal mucosa. Grade 2 flap valve on retroflexed examination of the cardia. Duodenum: Normal bulb and descending duodenum, Intervention: none COLONOSCOPY Instrument: Olympus variable stiffness pediatric scope 190L Colonoscopy Monitoring: Vital signs and clinical assessment, continuous EKG monitoring, Pulse oximetry, Carbon Dioxide monitoring and blood pressure monitoring were done throughout the procedure. Colon withdrawal time was 12 minutes. Procedure: The patient was placed in the left lateral decubitis position and pre-procedure medications were administered. After a digital rectal examination of the ano-rectum, the video colonoscope was inserted into the rectum and advanced through the colon to the cecum/TI. The colonoscope was slowly withdrawn in a retrograde panoramic fashion and the colon mucosa was carefully examined including a retroflexed view of the rectum. Findings and interventions are described below. Procedure Difficulty:moderate Findings: Terminal Ileum-normal Cecum:normal Ascending Colon: normal Transverse Colon -normal Descending Colon: melanosis coli Sigmoid Colon: melanosis coli Rectum: Retroflexion not done due to anal mass and small rectal vault Anorectum - abnormal, stricture, as scope passed there was persistent oozing, an ulcerated lesion was noted in the anal canal with surrounding induration and irregular tissue margins, hemospray was applied which helped stop the bleeding Colon preparation: [place] Bowel Preparation Scale Right colon; 2 Transverse colon: 2 Left colon; 2 (0 = Unprepared colon segment with mucosa not seen due to solid stool that cannot be cleared. 1 = Portion of mucosa of the colon segment seen, but other areas of the colon segment not well seen due to staining, residual stool and/or opaque liquid. 2 = Minor amount of residual staining, small fragments of stool and/or opaque liquid, but mucosa of colon segment seen well. 3 = Entire mucosa of colon segment seen well with no residual staining, small fragments of stool or opaque liquid) Impression and Post Procedure Diagnosis: Endoscopy Findings: normal Colonoscopy Findings: melanosis coli Plan: Repeat Colonoscopy will depend on colorectal surgical assessment of anal mass, will refer to Dr Casper High fiber diet leaflet avoid straining at stool, epsom salts and sitz bath, anusol supps or cream TODAY'S VISIT Patient is here today for follow-up and to discuss colonoscopy and CT scan results. Patient reports that she has been feeling better since the last time I have seen her. As mentioned above bleeding adenoma found on colonoscopy. Biopsy not performed as tumor was too friable. Patient was referred to Dr. Casper and has an appointment with him today at 13:00. Patient had abdominal CT scan done on August 28 with lesions found on liver with suspicion of metastatic hepatic carcinoma, anal mass suspicion of adenocarcinoma. I have referred her to Oncology and she has appointment with Dr. Micthell this week. Patient is very upset, accompanied by her daughter today. Patient denies any d yspepsia, dysphagia or odynophagia. Patient denies any melena, hematochezia. Moving her bowels well. Taking Dulcolax and Colace every day. [facility] Medical History History of Helicobacter pylori infection Polyarthralgia Epigastric pain Obesity (BMI 30.0-34.9) Left ankle sprain Vitamin D deficiency Perimenopause Iron deficiency anemia Dyslipidemia Acquired hypothyroidism Surgical History No pertinent past surgical history Family History (Reviewed 09/03/23 @ 09: by Sonya Almanza CMA) Maternal Uncle Mental health disorder Social History Housing: House Alcohol intake: never Patient Tobacco Use Status: Never used Tobacco e-Cigarette/Vaping Use: Never Used service: No Current occupational status: employed Cognitive needs: No Hearing needs: No Vision needs: Yes Review of Systems Const Denies weight gain and Denies weight loss ENT Reports no additional complaints, Denies dysphagia and Denies odynophagia Card Reports no additional complaints Resp Reports no additional complaints GI Denies abdominal pain, Denies belching, Denies melena, Denies bloating, Denies change in bowel habits, Denies dysphagia, Denies excessive flatus, Denies dyspepsia, Denies heartburn, Denies diarrhea, Denies loose stools, Denies nausea, Denies odynophagia and Denies vomiting Musc Reports no additional complaints Neuro Reports no additional complaints Psych Reports no additional complaints Endo Reports no additional complaints Physical Exam Vital Signs: Last Vital Signs Pulse 73 09/03/23 09:19 BP 104/53 L 09/03/23 09:19 BMI result Body Mass Index 31.9 Const General: healthy appearing and no acute distress Nutritional Appearance: obese Orientation/consciousness: patient oriented x3 Resp Effort & Inspection: normal respiratory effort, able to speak in complete sentences, no tracheal deviation and symmetric chest movement Auscultation: clear to auscultation bilaterally Cardio Rate: regular rate GI Inspection: Yes normal to inspection, No distended and Yes obesity Palpation (GI): Soft to palpation, not firm, nontender and No hepatosplenomegaly present Auscultation: normal bowel sounds General: Yes no CVA tenderness Back/Spine/Pelvis Back: no CVA tenderness Skin General skin exam: elasticity normal, turgor normal and dry skin Neuro General: patient oriented x3 Psych Appearance: grossly normal Mental Status: mental status grossly normal Results Reviewed Results Reviewed: CT SCAN OF ABDOMEN AND PELVIS FINDINGS: LUNG BASES: The visualized lung bases are unremarkable. LIVER, GALLBLADDER, AND BILIARY TREE: The liver is normal in size, shape, and attenuation. There is interim appearance of a large number of low to intermediate attenuation hepatic solid lesions. One of the largest within the right hepatic lobe is seen anteriorly in segment 8 (3:13), measuring 3.1 x 2.5 cm, with a postcontrast Hounsfield value of 87.9 units. A further dominant lesion within the hepatic tail measures 3.7 x 3.0 cm (3:25), with a postcontrast Hounsfield value of 74.7 units. Within the left hepatic lobe (3:20), a dominant 4.3 x 3.5 cm lesion is seen with postcontrast Hounsfield value of 72.8 units. No biliary ductal dilatation is present. The gallbladder is unremarkable with no evidence of radiopaque gallstones, gallbladder wall thickening, or obvious pericholecystic inflammatory changes. PANCREAS: Unremarkable. SPLEEN: Unremarkable. ADRENAL GLANDS: Unremarkable. KIDNEYS AND URETERS: The kidneys are normal in size, shape, and attenuation. No hydronephrosis, hydroureter, or calculi seen. No perinephric stranding. BLADDER: Unremarkable. GASTROINTESTINAL TRACT: There is a moderate colonic stool burden. There is marked wall thickening of the anorectal junction. There is perirectal soft tissue density extending into the right ischioanal fossa. There are several enlarged perirectal and perianal lymph nodes, the largest measuring 2.4 x 1.4 cm, 2.1 x 1.6 cm and 1.8 x 1.4 cm (3:64, 65 and 68). The fat plane interposed between the posterior vaginal wall and the anterior anorectal junction is obscured. No derick obstruction, free intraperitoneal air or abscess is seen. No significant diverticulosis or diverticulitis is seen. The vermiform appendix is unremarkable. ABDOMINAL WALL: No significant hernia is appreciated. LYMPH NODES: There are enlarged perirectal and perianal lymph nodes, as detailed. Within the right internal iliac chain (3:71 and 6:59), a 1.9 x 1.5 cm lymph node is seen. There is an enlarged right inguinal lymph node measuring 1.7 x 1.5 cm (3:79). VASCULAR: Unremarkable. PELVIC VISCERA: As above, the fat plane interposed between the posterior vaginal vault and the anterior anorectal margin is obscured. There is a small amount of low-attenuation free fluid in the left dependent pelvis. OSSEOUS STRUCTURES: There is marked degenerative disc disease at L5-S1. There is multi-level mild thoracolumbar spondylosis. No acute or aggressive osseous finding is noted. 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 There is anorectal wall thickening, and abnormal soft tissue density extends into the right ischiorectal fossa. The fat plane interposed between the vaginal vault and the distal rectum is obscured. There are pathologically enlarged perirectal, perianal, right internal iliac chain and right inguinal lymph nodes. General Surgery evaluation and management is recommended, including anorectal examination, to include physical examination and possibly flexible sigmoidoscopy/biopsy. Assessment & Plan Assessment & Plan (1) History of Helicobacter pylori infection: Code(s): Z86.19 - Personal history of other infectious and parasitic diseases Category: Medical (2) IBS (irritable bowel syndrome): Code(s): K58.9 - Irritable bowel syndrome without diarrhea Qualifiers: Irritable bowel syndrome type: without diarrhea Qualified Code(s): K58.9 - Irritable bowel syndrome without diarrhea (3) Chronic idiopathic constipation: Code(s): K59.04 - Chronic idiopathic constipation (4) Rectal pain: Code(s): K62.89 - Other specified diseases of anus and rectum (5) Mass of anus: Code(s): K62.89 - Other specified diseases of anus and rectum Category: Medical (6) Lesion of liver: Code(s): K76.9 - Liver disease, unspecified Plan Follow-up with colorectal surgery, patient has an appointment today. Follow-up with oncology. Continue current bowel regimen. Patient will return in the office in 3 months. Patient will call the office sooner if she will have any GI concerning symptoms. Patient is agreeable to this plan and verbalizes understanding of instructions. She was given the opportunity to ask questions and all questions answered
== END 2023-09-03 09:42 | disposition home or self-care (01) ==
PROVIDERS: PCP Internal Medicine; Visit Provider Nurse Practitioner Family
DX: Z86.19 Personal history of other infectious and parasitic diseases (principal); K58.9 Irritable bowel syndrome, unspecified; K59.04 Chronic idiopathic constipation; K62.89 Other specified diseases of anus and rectum; K76.9 Liver disease, unspecified
CPT/HCPCS: 99214

== ENCOUNTER → 2023-09-03 09:09 | Outpatient (BNVA) | payer OTHER, SELFPAY | PROVIDERS: PCP Internal Medicine; Visit Provider Nurse Practitioner Family | DX: K62.89 Other specified diseases of anus and rectum (principal); K58.9 Irritable bowel syndrome, unspecified; K59.04 Chronic idiopathic constipation; K76.9 Liver disease, unspecified; Z86.19 Personal history of other infectious and parasitic diseases | CPT/HCPCS: 99202; 99212 ==

== ENCOUNTER 2023-09-03 13:01 | Outpatient (AMB) | payer OTHER, SELFPAY ==
[2023-09-03 13:05] VITALS: BP 104/53; PULSE 73; BMI 31.9
--- NOTE | 2023-09-03 13:05 | A.OFFVIS_ITS ---
Vital Signs 09/03/23 13:05 Height 5 ft 2 in Weight 174 lb 9.698 oz BMI 31.9 BP 104/53 L Blood Pressure Location Lt brachial Position Sitting Pulse 73 Intake Visit Reasons: Anal mass Intake Note: This patient was referred by for an anal mass assessment. Pt c/o; reports no rectal pain, pressure, or bleeding at this time. 08/16/2023:EGD, Colonoscopy() Primer Waterproofing Machine Adjuster Required: Yes Primer Waterproofing Machine Adjuster Language: Sewing Machine Assembler Name: Pt declined metal slitter Accompanied by: Other Relationship Allergies No Known Allergies Allergy (Mild, Verified 09/03/23 13:14) NOT APPLICABLE Medication List - Last Reconciled 09/03/23 by Arnold Casper MD bisacodyl (Dulcolax (bisacodyl)) 10 mg (2 x 5 mg) PO BEDTIME celecoxib (Celebrex) 200 mg PO DAILY PRN cholecalciferol (vitamin D3) 1,250 mcg PO QWEEK 3 months docusate sodium 200 mg (2 x 100 mg) PO BEDTIME famotidine (Pepcid) 20 mg PO BEDTIME hydrocortisone 2.5% (Proctosol HC) 1 appl [place] BID-QID PRN levothyroxine 125 mcg PO QAM omeprazole 20 mg PO BID 14 days polyethylene glycol 3350 (Miralax) 238 grams PO ONCE HPI HPI Anal mass: Details: [age] year old female referred for an anal lesion. She has had bleeding per rectum for the past 7 months. This seemed to have been heavier about 2 months ago. She therefore underwent a colonoscopy with Dr. Young last 08/16/2023 and she was noted to have this diffuse ulcerating lesion in the anal canal. She says that her bleeding has slowed down significantly after she was started on stool softeners although she says she still notice this this frequently. She also describes pain in her anus fistula with bowel movements. She also has history of chronic constipation. [facility] Medical History History of Helicobacter pylori infection Polyarthralgia Epigastric pain Obesity (BMI 30.0-34.9) Left ankle sprain Vitamin D deficiency Perimenopause Iron deficiency anemia Dyslipidemia Acquired hypothyroidism Surgical History No pertinent past surgical history Family History Maternal Uncle Mental health disorder Social History Housing: House Alcohol intake: never Patient Tobacco Use Status: Never used Tobacco e-Cigarette/Vaping Use: Never Used service: No Current occupational status: employed Cognitive needs: No Hearing needs: No Vision needs: Yes Review of Systems Const Denies chills and Denies fever(s) Card Denies chest pain, Denies dyspnea and Denies dyspnea on exertion Resp Denies cough, Denies dyspnea and Denies dyspnea on exertion GI Reports hematochezia, Denies change in bowel habits and Reports constipation Denies hematuria Musc Denies back pain and Denies limited range of motion Neuro Denies focal weakness and Denies convulsions Psych Denies depression and Denies mood swings Physical Exam Vital Signs: Last Vital Signs Pulse 73 09/03/23 13:05 BP 104/53 L 09/03/23 13:05 BMI result Body Mass Index 31.9 Const General: comfortable and no acute distress Orientation/consciousness: patient oriented x3 Neck Neck: Yes no lymphadenopathy Resp Auscultation: clear to auscultation bilaterally Cardio Rhythm: regular rhythm GI Other: Rectal exam shows no obvious perianal lesion or ulceration. Digital exam and anoscopy was deferred because of her tenderness and pain Palpation (GI): Soft to palpation, nontender and no guarding Neuro General: patient oriented x3 Assessment & Plan Assessment & Plan (1) Mass of anus: Code(s): K62.89 - Other specified diseases of anus and rectum Category: Medical Plan: She has passage of bright blood per rectum for the past 7 months. She was noted to have an anal lesion that was bleeding on colonoscopy. She was referred to me for biopsy. I explained the technique of exam under anesthesia, on biopsy with possible excision the anal lesion. I reviewed the risks including but not limited to bleeding, infections, postop pain, as well as the benefits and alternatives. She understands what to expect postoperatively. She has given consent. Her daughter was with her during the visit.
== END 2023-09-03 13:35 | disposition home or self-care (01) ==
LOC: HO.HGS 13:01
PROVIDERS: PCP Internal Medicine; Referring Provider Internal Medicine; Visit Provider Surgery
DX: K62.89 Other specified diseases of anus and rectum (principal)
CPT/HCPCS: 99203

== ENCOUNTER → 2023-09-05 14:56 | Outpatient (BNV) | payer OTHER, SELFPAY | PROVIDERS: PCP Internal Medicine; Referring Provider Nurse Practitioner Family; Visit Provider Internal Medicine | DX: D12.9 Benign neoplasm of anus and anal canal (principal) | CPT/HCPCS: 99205; 99213; 99214; 99215; G2211 ==

== ENCOUNTER 2023-09-06 07:27 | Outpatient (REF) | payer OTHER, SELFPAY ==
[2023-09-06 07:38] LABS: MANUAL DIFF FLAG NO
[2023-09-06 07:59] LABS: Basophils Absolute Auto 0.1 X10*3/uL (0.0-0.2); Basophils Percent Auto 1.2 % (0-2); Eosinophils Absolute Auto 0.2 X10*3/uL (0.0-0.4); Eosinophils Percent Auto 2.9 % (0-4); Hematocrit 39.2 % (37.0-47.0); Imm Gran Abs Auto 0.02 X10*3/uL (0.00-0.03); Imm Gran Pct Auto 0.3 % (0.0-0.4); Lymphocytes Absolute Auto 0.8 X10*3/uL (1.2-4.9); Lymphocytes Percent Auto 13.8 % (20-40); Mean Corpuscular HGB Conc 33.2 g/dl (31.0-35.0); Mean Corpuscular Hemoglobin 29.3 pg (27.0-33.0); Mean Corpuscular Volume 88.5 fL (80.0-98.0); Mean Platelet Volume 9.1 fL (9.4-12.3); Monocytes Absolute Auto 0.4 X10*3/uL (0.1-1.2); Monocytes Percent Auto 6.6 % (2-11); Neutrophils Absolute Auto 4.5 x10*3/uL (2.0-8.3); Neutrophils Percent Auto 75.2 % (45-73); Platelet Count 347 X10*3/uL (160-400); Red Blood Count 4.43 X10*6/uL (4.20-5.50); Red Cell Distribution Width 12.8 % (11.0-16.0); White Blood Count 5.9 X10*3/uL (4.8-10.8)
[2023-09-06 08:07] LABS: INTERNATIONAL NORM RATIO 1.1 (0.9-1.1); Prothrombin Time 12.8 SEC (11.1-13.3)
[2023-09-06 08:43] LABS: Alanine Aminotransferase 14 U/L (0-31); Albumin Level 4.5 g/dL (3.5-5.0); Alkaline Phosphatase 74 U/L (39-117); Anion Gap 9 (12-20); Aspartate Amino Transferase 23 U/L (5-31); Bilirubin Total 0.6 mg/dL (0.0-1.0); Blood Urea Nitrogen 13 mg/dL (9-16); Calcium 9.4 mg/dL (8.4-10.2); Carbon Dioxide 30 mmol/L (22-29); Chloride 105 mmol/L (96-108); Estimated Glomerular Filt Rate > 60; Glucose Random 94 mg/dL (60-115); Potassium 4.2 mmol/L (3.3-5.1); Sodium 140 mmol/L (135-145); Total Protein 7.9 g/dL (6.5-8.0)
[2023-09-06 08:44] LABS: HBS Num1 0.32 mIU/mL (0-7.99); HIV AB/AG Nonreactive (Nonreactive); HIV Num 1 0.05 S/CO (0.00-0.99); Hepatitis B Core Antibody Nonreactive (Nonreactive); Hepatitis B Surface Antigen Negative (Negative); ~Hepatitis B Surface Antibody NONREACTIVE (Nonreactive)
== END 2023-09-06 07:28 | disposition home or self-care (01) ==
LOC: HO.LAB 07:27
PROVIDERS: PCP Internal Medicine; Visit Provider Internal Medicine
DX: Z11.4 Encounter for screening for human immunodeficiency virus [HIV] (principal); K62.89 Other specified diseases of anus and rectum
CPT/HCPCS: 36415; 80053; 82378; 85025; 85610; 86704; 86706; 87340; 87389

== ENCOUNTER 2023-09-11 07:58 | Day surgery (SDC) | payer OTHER, SELFPAY ==
[2023-09-11] VITALS (9 sets, daily range): BP systolic 106–137; BP diastolic 56–94; PULSE 61–81; RESP 14–16; TEMP 36.6–37.1; O2SAT 95–99; BMI 32.7
--- NOTE | ~2023-09-11 | US_ITS ---
53-year-old female with a new anorectal carcinoma with imaging concerning for liver metastases. Oncology requests liver biopsy. PROCEDURES: 1. Limited preprocedure ultrasound of the abdomen. Permanent images saved in PACS. 2. Ultrasound-guided biopsy of the right lobe liver mass. 3. Limited preprocedure ultrasound of the abdomen. Permanent images saved in PACS. CLINICIANS: Valentino Hunter PA-C MEDICATIONS: -Versed 1.5 mg, Fentanyl 75 mcg, and lidocaine 1% 10 mL SQ -Antibiotics: None -For additional details, please see nursing flowsheet. COMPLICATIONS: None ESTIMATED BLOOD LOSS: < 5 ml CONTRAST: None SPECIMENS: 4 x 20 g cores were sent to pathology, 22-gauge fine-needle aspiration was sent for cytology and microbiology MODERATE SEDATION TIME: 30 min PROCEDURE NOTE: The procedure, risks, benefits, and alternatives were carefully explained to the patient and written informed consent was obtained. The patient was placed supine on the exam table. A timeout was performed. A limited ultrasound of the abdomen was performed to localize a right lobe liver lesion and choose appropriate needle entry and trajectory. The patient was prepped and draped in usual sterile fashion. The skin and deeper soft tissues were anesthetized with lidocaine. Under ultrasound guidance, a 19 gague trocar needle was advanced to the liver lesion. A 20 gauge biopsy device was inserted through the trocar needle advanced into the liver lesion. A 20-gauge core was obtained, however there was scant material. . A 22-gauge aspiration was performed which yielded bermudez appearing fluid. This was sent for cytology and microbiology. 2 Gelfoam torpedoes were inserted through the trocar needle into the biopsy tract and at the level of the capsule. Given that this mass was likely necrotic and unlikely to yield sufficient diagnostic tissue, a new right lobe mass adjacent to the gallbladder was then targeted. Under ultrasound guidance, a 19 gague trocar needle was advanced to the liver lesion lateral to the gallbladder. A 20 gauge biopsy device was inserted through the trocar needle and advanced into the liver lesion. A total of 4, 20 gague cores were performed. The specimens were placed in formalin. A total of 2 Gelfoam torpedoes were then administered through the trocar needle into the biopsy tract and at the level of the liver capsule. The needle was removed. A limited post procedure ultrasound was then performed. Images were saved in PACS. A dry dressing was applied and secured with Tegaderm. There were no immediate complications. The patient was stable after the procedure and was transferred to the post anesthesia care unit. The procedure was done under moderate sedation with a dedicated nurse for monitoring of vital signs. US/US biopsy liver Impression: Ultrasound-guided biopsy of two right lobe liver masses. This procedure was performed by Valentino Hunter PA-C and supervised by Dr. Santos.
--- NOTE | 2023-09-11 10:31 | MHC.SHP ---
Pre-Procedural Eval Section A - 24 Hr Update-Section A only Date of Service: 09/11/23 Section B - Complete if H&P > 30 days Chief Complaint: ? mets from cancer Details of Present Illness: 53 y/o female with a rectal mass and imaging showing multiple liver masses concerning for metastases Relevant Family History (Specify if Yes): No Relevant Social History: None Present Medications: see Short Stay Collaborative assessment Medical History: No relevant PMH History of Previous Operations: No relevant previous surgery Allergies: Allergies Allergy/AdvReac Type Severity Reaction Status Date / Time No Known Allergies Allergy Mild NOT Verified 09/11/23 08:27 APPLICABLE Review of Systems Sugical H&P ROS: Negative: Constitution, Cardiovascular and Respiratory and Yes, Specify: Gastrointestinal (diarrhea) Exam Surgical H&P Exam: Normal: Heart, Normal: Lungs, Normal: Abdomen, Normal: Skin and Normal: Neurological and Not Evaluated: HEENT Plan Diagnosis/Plan: Unchanged I have reviewed the history and physical and performed a pertinent physical examination on my patient. No changes have occurred unless specified. Targeted Image guided Liver biopsy Time Spent With Patient Time: Total time managing care of this patient today ____ minutes.
[2023-09-11] MEDS: Lidocaine HCl 1 % MPF 5 ML VIAL 20 ML SUBCUT (11:47)
== END 2023-09-11 14:28 | disposition home or self-care (01) ==
PROVIDERS: Physician Assistant Surgical; PCP Internal Medicine; Visit Provider Internal Medicine
DX: C78.7 Secondary malignant neoplasm of liver and intrahepatic bile duct (principal); K62.9 Disease of anus and rectum, unspecified; K62.5 Hemorrhage of anus and rectum; R59.1 Generalized enlarged lymph nodes; E78.5 Hyperlipidemia, unspecified; D50.9 Iron deficiency anemia, unspecified; Z86.19 Personal history of other infectious and parasitic diseases
CPT/HCPCS: 47000; 76942; 86850; 86900; 86901; 87070; 87073; 87205; 88173; 88305; 88307; 88313; 88341; 88342; 99152; 99153

== ENCOUNTER → 2023-09-11 10:22 | Outpatient (BNV) | payer OTHER, SELFPAY | PROVIDERS: PCP Internal Medicine; Visit Provider Physician Assistant Surgical | DX: R16.0 Hepatomegaly, not elsewhere classified (principal) | CPT/HCPCS: 47000; 76942 ==

== ENCOUNTER 2023-09-14 07:45 | Day surgery (SDC) | payer OTHER, SELFPAY ==
[2023-09-12 12:01] VITALS: BMI 32.0
--- NOTE | 2023-09-12 13:18 | P.CONAN_ITS ---
Documented by User: Micki Hunter NP 09/12/23 13:19 HPI - Anesthesia Eval Consult details Narrative: 53yo F for Exam Under Anesthesia, Hemorrhoidectomy s/p EGD and Bosler 08/2023 with MAC PMF Active Problems Active Problems: All Active Problems Mass of anus (Acute) H. pylori infection (Acute) History of Helicobacter pylori infection (Acute) Polyarthralgia (Acute) Epigastric pain (Acute) Obesity (BMI 30.0-34.9) (Acute) Vitamin D deficiency (Acute) Perimenopause (Acute) Dyslipidemia (Acute) Acquired hypothyroidism (Acute) Past Medical History Medical History (Updated 09/05/23 @ 16:01 by Betsy Mitchell MD) History of Helicobacter pylori infection Polyarthralgia Epigastric pain Obesity (BMI 30.0-34.9) Left ankle sprain Vitamin D deficiency Perimenopause Iron deficiency anemia Dyslipidemia Acquired hypothyroidism Family History Family History Maternal Uncle Mental health disorder Family history of problems with anesthesia: No Surgical History Surgical History (Updated 09/12/23 @ 11:56 by Julia Penny RN) History of liver biopsy History of esophagogastroduodenoscopy (EGD) H/O colonoscopy History of Problems with Anesthesia: No Social History Social History (Updated 09/05/23 @ 15:24 by Steffi Austin) Household Members: Family and Children Housing: House Alcohol intake: never Patient Tobacco Use Status: Never used Tobacco e-Cigarette/Vaping Use: Never Used Advance Directives: No (unknown) Advance Directives Information Provided: Yes Advance Directives on File: No service: No Current occupational status: employed Cognitive needs: No Hearing needs: No Vision needs: Yes Meds Allergies Allergy/AdvReac Type Severity Reaction Status Date / Time No Known Allergies Allergy Mild NOT Verified 09/11/23 08:27 APPLICABLE Home Medications ?Medication ?Instructions ?Recorded ?Confirmed ?Last Taken ?Type famotidine 20 mg tablet 20 mg PO BEDTIME 09/12/23 09/12/23 Unknown History omeprazole 20 mg delayed 20 mg PO BID 09/12/23 09/12/23 Unknown History release,disintegrating tablet Exam Height,Weight and Vital Signs: Height 5 ft 2 in Weight 79.379 kg Pertinent Lab Results Pertinent Lab Results: Laboratory Tests 09/06/23 07:36 WBC 5.9 Hgb 13.0 Hct 39.2 Plt Count 347 Sodium 140 Potassium 4.2 Chloride 105 Carbon Dioxide 30 H BUN 13 Creatinine 0.75 Narrative Narrative: EKG 06/2023 Vent. Rate : 067 BPM Atrial Rate : 067 BPM P-R Int : 124 ms QRS Dur : 084 ms QT Int : 380 ms P-R-T Axes : 018 002 010 degrees QTc Int : 401 ms Normal sinus rhythm Minimal voltage criteria for LVH, may be normal variant ( R in aVL ) Borderline ECG When compared with ECG of 21-MAR-2017 13:19, No significant change was found Assessment and Plan Assessment Anesthesia Assessment: Chart Reviewed Final Anesthetic Review Family History of Problems with Anesthesia: No History of Problems with Anesthesia: No Documented by User: Denys Garcia MD 09/14/23 09:11 COUNTS INCLUDE 234 BEDS AT THE [facility] Past Medical History Medical History (Updated 09/05/23 @ 16:01 by Betsy Mitchell MD) History of Helicobacter pylori infection Polyarthralgia Epigastric pain Obesity (BMI 30.0-34.9) Left ankle sprain Vitamin D deficiency Perimenopause Iron deficiency anemia Dyslipidemia Acquired hypothyroidism Family History Family History Maternal Uncle Mental health disorder Surgical History Surgical History (Updated 09/12/23 @ 11:56 by Julia Penny RN) History of liver biopsy History of esophagogastroduodenoscopy (EGD) H/O colonoscopy Social History Social History (Updated 09/05/23 @ 15:24 by Steffi Austin) Household Members: Family and Children Housing: House Alcohol intake: never Patient Tobacco Use Status: Never used Tobacco e-Cigarette/Vaping Use: Never Used Advance Directives: No (unknown) Advance Directives Information Provided: Yes Advance Directives on File: No service: No Current occupational status: employed Cognitive needs: No Hearing needs: No Vision needs: Yes Meds Allergies Allergy/AdvReac Type Severity Reaction Status Date / Time No Known Allergies Allergy Mild NOT Verified 09/11/23 08:27 APPLICABLE Home Medications ?Medication ?Instructions ?Recorded ?Confirmed ?Last Taken ?Type famotidine 20 mg tablet 20 mg PO BEDTIME 09/12/23 09/12/23 Unknown History omeprazole 20 mg delayed 20 mg PO BID 09/12/23 09/12/23 Unknown History release,disintegrating tablet Exam Airway Mallampati Class: II TM Dist: >3cm Neck ROM: Full Assessment and Plan Assessment Anesthesia Assessment: Anesthesia Plan Discussed Final Anesthetic Review NPO: Yes ASA Class: II Final Preanesthetic Review: No Changes in Pt Med Stat, Meds/Allgs Chart Reviewed, Consent Obtained/Reviewed and Anes Risks/Benef Reviewed Patient Risk: Low Procedure Risk: Low Anesthetic Plan Anesthetic Plan: GA Disposition: Standard PACU
[2023-09-14] VITALS (13 sets, daily range): BP systolic 103–129; BP diastolic 52–78; PULSE 67–91; RESP 12–18; TEMP 36.1–36.6; O2SAT 93–100
[2023-09-14] MEDS: Lactated Ringers 1,000 ML 100 ML IVCONT (09:23)
--- NOTE | 2023-09-14 10:07 | MHC.SHP ---
Pre-Procedural Eval Section A - 24 Hr Update-Section A only Date of Service: 09/14/23 The patient is an INPATIENT: No Changes since office visit: No Cold of Flu in the past 2 weeks, No New Medical Problems, No Changes in Medication and No Patient answered all questions The patient has been examined within 24 hours of the surgical procedure. The History & Physical has been completed within 30 days and I have reviewed it.: Yes Section B - Complete if H&P > 30 days Chief Complaint: Other specified diseases of anus and rectum Allergies: Allergies Allergy/AdvReac Type Severity Reaction Status Date / Time No Known Allergies Allergy Mild NOT Verified 09/11/23 08:27 APPLICABLE Plan I have reviewed the history and physical and performed a pertinent physical examination on my patient. No changes have occurred unless specified. Time Spent With Patient Time: Total time managing care of this patient today ____ minutes.
--- NOTE | 2023-09-14 11:05 | W.PM.OPN ---
Operative Note Operative Note Date of Service: 09/14/23 Narrative: Preop diagnosis: Anal mass Postop diagnosis: The same Procedure: Exam under anesthesia, biopsy of anal mass Surgeon: Arnold Casper MD The patient is a 53-year-old female with a history of bright blood per rectum, and had a colonoscopy showing an anal mass. She had a CAT scan as well showing what appeared to be metastatic disease in the liver the lungs In view of this, a tissue diagnosis was requested with a biopsy. I explained to her the technique of exam under anesthesia and biopsy of the anal mass. I reviewed the risks, benefits, and alternatives and she would given consent She was brought to the operating room and placed in prone spenser-knife position under general anesthesia via endotracheal tube. The buttocks were retracted with wide tape laterally. The perianal area was prepped and draped usual sterile fashion. A surgical time-out was done. The patient received Cefotan 2 g IV preoperatively Examination of the perianal area did not reveal any mass. I attempted to insert the Cortney Calloway retractor but does note of significant anal stenosis. I was able to insert the smallest size Renae retractor. Again the anal canal was to be very tight and circumferentially indurated. There was note of a diffuse lesion, friable and bleeding easily in the proximal anal canal extending proximally. I removed some parts of this a long preop forceps and long Metzenbaum scissors. This was sent as a specimen. This was taken from the right left side of the proximal anal canal. Again, full examination of the anal canal was difficult in view of the significant stenosis we could not really retract the anal canal as well. However, we could visualize the friable diffuse lesion extending more proximally and becoming bulkier was the rectum. There was note of significant oozing from the anal canal and I applied a rolled Gelfoam. We observed for about 3 minutes. We were able to achieve hemostasis with a Gelfoam I infiltrated the perianal area with Marcaine 0.5% for postop analgesia. The procedure was then completed The patient tolerated procedure well. There were no immediate complications. Initial and final counts of sponges and instruments were correct. Estimated blood loss was about 25 cc. The patient was extubated without difficulty and transferred to the recovery room with stable vital signs.
[2023-09-14] MEDS: fentaNYL citrate/PF 100 MCG/2 ML VIAL 50 MCG IVPUSH (11:38)
== END 2023-09-14 13:05 | disposition home or self-care (01) ==
PROVIDERS: PCP Internal Medicine; Visit Provider Surgery
PROC: (CPT 45100; principal; 2023-09-14 10:30)
DX: K62.89 Other specified diseases of anus and rectum (principal); C21.8 Malignant neoplasm of overlapping sites of rectum, anus and anal canal; C78.7 Secondary malignant neoplasm of liver and intrahepatic bile duct; K62.4 Stenosis of anus and rectum; K59.09 Other constipation; D50.9 Iron deficiency anemia, unspecified; E55.9 Vitamin D deficiency, unspecified; E78.5 Hyperlipidemia, unspecified; E03.9 Hypothyroidism, unspecified; E66.9 Obesity, unspecified; Z68.31 Body mass index [BMI] 31.0-31.9, adult; Z79.899 Other long term (current) drug therapy
CPT/HCPCS: 45100; 88305; 88342; J0330; J1100; J2250; J2405; J2704; J2795; J3010

== ENCOUNTER → 2023-09-14 07:45 | Outpatient (BNV) | payer OTHER, SELFPAY | PROVIDERS: PCP Internal Medicine; Visit Provider Surgery | DX: K62.89 Other specified diseases of anus and rectum (principal) | CPT/HCPCS: 45100 ==

== ENCOUNTER 2023-09-21 10:32 | Outpatient (REF) | payer OTHER, SELFPAY ==
--- NOTE | ~2023-09-21 | CT_ITS ---
EXAMINATION: CT CHEST WITH CONTRAST CLINICAL INFORMATION: Staging examination. COMPARISON: CT abdomen and pelvis dated 08/29/2023; chest radiographs dated 07/21/2020. TECHNIQUE: Multidetector volumetric CT imaging of the chest was obtained after the administration of 65 mL of Omnipaque 350 intravenous contrast without immediate adverse reactions. Axial MIP volume rendering provided. Sagittal and coronal reformatted images were obtained. This CT examination was performed using dose optimization techniques as appropriate, variously including the following: *Automated exposure control *Adjustment of mA and/or kV according to patient size (this includes techniques or standardized protocols for targeted exams where dose is matched to indication/reason for exam; i.e. extremities or head) *Use of iterative reconstruction technique DLP: 126 mGy-cm FINDINGS: ACTUARIAL CONSULTANT: The lungs are symmetrically well-expanded and grossly clear. There is mild elevation of the right hemidiaphragm. A nipple shadow outlined by air projects over the lateral right base. LUNGS: Within the anterior segment of the right upper lobe medially (5:49), a 2 mm noncalcified nodule is seen. Within the superior segment of the right lower lobe (5:72), a 3 mm noncalcified nodule is seen. There is no mass, infiltrate or groundglass opacity. No generalized increase is seen in peripheral interlobular septal markings. No bleb or bullous formation is seen. No small airway thickening is seen. There is no bronchiectatic change. The central airways appear patent MEDIASTINUM: The mediastinum is normal. PLEURA: There is no pleural effusion. No pleural mass or thickening. AXILLA: No lymphadenopathy. UPPER ABDOMEN: Multiple low-attenuation hepatic lesions are redemonstrated, consistent with the CT abdomen and pelvis dated 08/29/2023. These are relatively stable in the interim. The adrenal glands are unremarkable. OSSEOUS STRUCTURES: There is multi-level very mild thoracic spondylosis. No acute or aggressive osseous finding is noted. CT/CT chest w IV con IMPRESSION: 1. There are tiny noncalcified, nonspecific right lung nodules, which are of doubtful clinical significance. Recommend continued attention on imaging follow-up. 2. No mass, infiltrate or groundglass opacity is seen. There is no generalized increase in peripheral septal markings. 3. There is no thoracic lymphadenopathy or pleural effusion. 4. No acute or aggressive osseous finding is noted. 5. Multiple low-attenuation hepatic lesions are redemonstrated. Please correlate with ultrasound biopsy results dated 09/11/2023. Fleischner guidelines were followed.
[2023-09-21] MEDS: iohexoL 350 MG/ML 100 ML INFUS..BTL IV (11:16)
== END 2023-09-21 10:33 | disposition home or self-care (01) ==
LOC: HO.CT 10:32
PROVIDERS: PCP Internal Medicine; Visit Provider Internal Medicine
DX: C21.0 Malignant neoplasm of anus, unspecified (principal)
CPT/HCPCS: 71260; Q9967

== ENCOUNTER → 2023-09-26 11:17 | Outpatient (REF) | payer OTHER, SELFPAY ==
--- NOTE | ~2023-09-26 | NM_ITS ---
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 For staging. COMPARISON: CT of the chest done on 09/21/[address] of the abdomen and pelvis done on 08/29/2023 and ultrasound-guided liver biopsy done on 09/11/2023. TECHNIQUE: Multiple gamma scintillation camera images of the whole body were performed 2.5 hours following the intravenous administration of 28 mCi Tc-99m MDP. The radiotracer was injected through left antecubital superficial vein without complications. FINDINGS: In the head, no suspicious focal osseous disease. In the thoracic cage and upper extremities, no suspicious focal osseous disease. In the spine, no suspicious focal osseous disease. In the pelvis, no suspicious focal osseous disease. In the lower extremities, asymmetric increased tracer avidity is noted at the medial aspect of the left knee and left midfoot, most consistent with posttraumatic and/or arthritic changes. Radiographic correlation is recommended. No other definite bony abnormalities are noted. The urinary bladder and faint visualization of both kidneys are noted. NM/NM bone scan whole body IMPRESSION: No definite scintigraphic evidence of osseous metastasis. Asymmetric focal increased tracer avidity at medial aspect of the left knee and left midfoot likely represent nonspecific posttraumatic and/or arthritic changes. Radiographic correlation is recommended.
== END ==
LOC: HO.NUCMED 11:17
PROVIDERS: PCP Internal Medicine; Visit Provider Internal Medicine
DX: C21.0 Malignant neoplasm of anus, unspecified (principal)
CPT/HCPCS: 78306; A9503

== ENCOUNTER 2023-09-27 10:13 | Outpatient (AMB) | payer OTHER, SELFPAY ==
--- NOTE | 2023-09-27 10:16 | A.OFFVIS_ITS ---
Vital Signs 09/27/23 10:22 Height 5 ft 2 in Weight 169 lb BMI 30.9 BP 137/65 Blood Pressure Location Rt brachial Position Sitting Pulse 86 Intake Visit Reasons: S/P excision anal mass Intake Note: This patient presents for a post-op assessment status post excision anal mass. Patient c/o; reports no complaints. 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 She denies any new complaints. She continues to have this occasional pains and drainage her anus. [facility] Medical History History of Helicobacter pylori infection Polyarthralgia Epigastric pain Obesity (BMI 30.0-34.9) Left ankle sprain Vitamin D deficiency Perimenopause Iron deficiency anemia Dyslipidemia Acquired hypothyroidism Surgical History History of liver biopsy History of esophagogastroduodenoscopy (EGD) H/O colonoscopy Family History Maternal Uncle Mental health disorder Social History Household Members: Family and Children Housing: House Alcohol intake: never Patient Tobacco Use Status: Never used Tobacco e-Cigarette/Vaping Use: Never Used service: No Current occupational status: employed Cognitive needs: No Hearing needs: No Vision needs: Yes Review of Systems Const Denies chills and Denies fever(s) Physical Exam Const General: comfortable and no acute distress Resp Effort & Inspection: normal respiratory effort GI Other: Rectal exam shows no perianal induration or redness or obvious mass at the orifice Assessment & Plan Assessment & Plan (1) Anal squamous cell carcinoma: Code(s): C21.0 - Malignant neoplasm of anus, unspecified Category: Medical Plan: Biopsies from 2 weeks ago confirmed the presence of squamous cell anal carcinoma Unfortunately she has metastatic disease to the liver. She is following Dr. Mitchell and palliative chemotherapy with carboplatin AUC and Taxol is planned She is to have a MediPort placed today. I instructed her to make sure she continues to follow up closely with Dr. Mitchell. Coding Level of Care Code Est Pt Level 2 (34121) Diagnoses Anal squamous cell carcinoma C21.0
[2023-09-27 10:22] VITALS: BP 137/65; PULSE 86; BMI 30.9
== END 2023-09-27 10:39 | disposition home or self-care (01) ==
PROVIDERS: PCP Internal Medicine; Visit Provider Surgery
DX: C21.0 Malignant neoplasm of anus, unspecified (principal)
CPT/HCPCS: 99024

== ENCOUNTER 2023-09-27 10:34 | Day surgery (SDC) | payer OTHER, SELFPAY ==
--- NOTE | ~2023-09-27 | IR_ITS ---
CLINICAL HISTORY: Metastatic squamous cell carcinoma. The patient presents to interventional radiology for placement of a port for chemotherapy. PROCEDURES: 1. Real-time ultrasound-guided access into the right internal jugular vein after documentation of selected vessel patency, and permanent image storing in the patient records. 2. Placement of a 6.6 Micronesian single-lumen power port. CLINICIAN: Valentino Hunter PA-C MEDICATIONS: - Versed 2 mg, Fentanyl 100 mcg, Lidocaine 1% 10 mL SQ -Antibiotics: Ancef 2g -For additional details, please see nursing flowsheet. Complications: None. Estimated blood loss: <5 ml Specimens: None. Contrast: None. Fluoroscopy time: 0.7 min MODERATE SEDATION TIME: 34 min PROCEDURE NOTE: The procedure, risks, benefits, and alternatives were carefully explained to the patient and written informed consent was obtained. The patient was placed supine on the fluoroscopy table. A timeout was performed. The right neck and chest was prepped and draped in usual sterile fashion. Maximum barrier technique was utilized. Local anesthesia was administered to the access site with 1% lidocaine. Under ultrasound guidance, the right internal jugular vein was accessed with a 5 fr micropuncture set. A 0.035 in wire was advanced into the IVC. A peel-away sheath was advanced over the wire and into the SVC, and the wire was removed. Next, subcutaneous lidocaine was administered to the chest. The port pocket was created after the skin incision, utilizing blunt dissection. Using blunt dissection, a subcutaneous tunnel was created that connects from the port pocket to the venotomy site. Through the peel-away sheath, the 6.6 Micronesian port catheter was placed. The catheter position was verified with fluoroscopy to be at the superior vena cava/right atrial junction. The port was connected to the catheter and was placed in the pocket. The venotomy site was closed with a 3-0 Vicryl subcutaneous suture. The port incision site was closed with interrupted 3-0 Vicryl subcutaneous sutures and surgical glue. Prior to closing the skin, 1 g of Ancef solution was placed in the pocket. The port was tested, flushed, and packed with heparin per routine protocol. The patient tolerated the procedure well. The patient was stable after the procedure and was transferred to the PACU. The procedure was performed under moderate sedation and with a dedicated nurse with continuous monitoring of vital signs. A permanent image of the ultrasound the neck and fluoroscopic image of the chest was saved and sent to PACS. FINDINGS: 1. Patent right internal jugular vein 2. Placement of a 6.6 Micronesian single lumen power port. 3. Port flushes and aspirates very well with a 10 mL syringe. No pneumothorax. IR/IR cvc insert tunnel w prt/merchandise shopper IMPRESSION: Placement of a 6.6 Micronesian single-lumen power port. PLAN: - The patient will be discharged home when stable by sedation protocol. - Port may be used immediately. This procedure was performed by Valentino Hunter PA-C, and directly supervised by Dr. An
[2023-09-27 11:46] VITALS: BMI 31.1
[2023-09-27 12:12] VITALS: BP 113/70; PULSE 86; RESP 16; TEMP 37.3; O2SAT 93
[2023-09-27 14:15] VITALS: BP 105/71; PULSE 95; RESP 15; TEMP 37.3; O2SAT 94
[2023-09-27 14:23] VITALS: BP 117/69; PULSE 87; RESP 16; TEMP 36.9; O2SAT 95
== END 2023-09-27 14:29 | disposition home or self-care (01) ==
PROVIDERS: Radiology Vascular & Interventional Radiology; PCP Internal Medicine; Visit Provider Internal Medicine
DX: Z45.2 Encounter for adjustment and management of vascular access device (principal); C21.0 Malignant neoplasm of anus, unspecified; C78.7 Secondary malignant neoplasm of liver and intrahepatic bile duct; Z87.19 Personal history of other diseases of the digestive system; M25.50 Pain in unspecified joint; D50.9 Iron deficiency anemia, unspecified; E55.9 Vitamin D deficiency, unspecified; E78.5 Hyperlipidemia, unspecified; E03.9 Hypothyroidism, unspecified; E66.9 Obesity, unspecified; Z68.31 Body mass index [BMI] 31.0-31.9, adult; Z79.899 Other long term (current) drug therapy
CPT/HCPCS: 36561; 99152; 99153; 99212; A4364; C1769; C1788; J0690; J1642; J1644; J2250; J2310; J3010

== ENCOUNTER → 2023-09-27 13:18 | Outpatient (BNV) | payer OTHER, SELFPAY | PROVIDERS: PCP Internal Medicine; Visit Provider Physician Assistant Surgical | DX: C21.0 Malignant neoplasm of anus, unspecified (principal) | CPT/HCPCS: 36561; 76937; 77001 ==

== ENCOUNTER 2023-10-12 06:56 | Outpatient (AMB) | payer OTHER, SELFPAY ==
--- NOTE | 2023-10-12 10:53 | MHC.PC.OV ---
Intake Visit Reasons: discuss short term dis. pp Iphone [phone] Allergies No Known Allergies Allergy (Mild, Verified 10/22/23 16:38) NOT APPLICABLE Medication List - Last Reconciled 10/22/23 by Angie Carlin MD dexamethasone 2 mg PO BID docusate sodium (Colace) 100 mg PO BID famotidine 20 mg PO BEDTIME levothyroxine 125 mcg PO QAM omeprazole 20 mg PO BID ondansetron 8 mg PO Q8H PRN oxycodone 5 mg PO Q8H PRN Tobacco use date assessed: 10/12/23 Dental Screening Dental Screen Date: 10/12/23 Did you have a dental visit in the last 12 months?: No Was dental information given to patient?: Patient has dentist HPI discuss short term dis. pp Iphone [phone] HPI Details Tele health visit made with 53-year-old lady with metastatic anal squamous cell carcinoma diagnosed 10/01/[address] Mitchell. She initially presented with rectal bleeding present since 12/31/2022, and was found to have an abnormal stricture with ulcerative lesion in the anorectal region. She underwent colonoscopy on 08/16/2023, which revealed stricture at the anorectum with an ulcerative lesion in the anal canal with surrounding induration and irregular tissue margins. CT of abdomen pelvis with contrast performed 08/29/2023 revealed a large number of hepatic lesions largest in the right hepatic lobe measuring 3.1 x 2.5 cm, another lesion in the hepatic tail measuring 3.7 x 3 cm, and in the left lobe dominant lesion measuring 4.3 x 3.5 cm. There was marked wall thickening of the anorectal junction, perirectal soft tissue density extending to right ischioanal fossa, and showed enlarged perirectal and perianal lymph nodes, and enlarged right inguinal lymph nodes in right internal iliac lymph nodes. CT of chest with contrast performed 09/21/2023 revealed tiny nonspecific right lung nodule, no thoracic lymphadenopathy no acute or aggressive osseous findings. PET scan was ordered but was denied by insurance carrier. A bone scan done 09/26/2023 showed no definite scintigraphic evidence of osseous metastasis. Asymmetric focal increased tracer avidity at medial aspect of the left knee and left midfoot likely represent nonspecific posttraumatic and/or arthritic changes. Or biopsy of right liver mass 09/11/2023 revealed poorly differentiated squamous cell carcinoma, and soft tissue on inner mass excision performed 09/14/2023 showed invasive squamous cell carcinoma moderate to poorly differentiated involving any rectal mucosa.. Due to her numerous liver metastases, patient is not a candidate for surgical liver directed therapies. She is currently undergoing palliative chemotherapy and was referred to [place] to see if she is candidate for any clinical trials involving immunotherapy.. She has started palliative chemotherapy 2 weeks ago, with treatment given 3 times a week. She is here today requesting to have a form for out of network coverage at in network level of benefits prior authorization form to go to [facility] in [place], to see if she has a candidate for any clinical trials involving immunotherapy for Metastatic Anal Squamous Cell Carcinoma. [facility] Medical History (Updated 10/22/23 @ 17:46 by Angie Carlin MD) 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 History of Helicobacter pylori infection Polyarthralgia Obesity (BMI 30.0-34.9) Left ankle sprain Vitamin D deficiency Perimenopause Iron deficiency anemia Dyslipidemia Acquired hypothyroidism Surgical History History of liver biopsy History of esophagogastroduodenoscopy (EGD) H/O colonoscopy Family History Maternal Uncle Mental health disorder Social History Household Members: Family and Children Housing: House Alcohol intake: never Patient Tobacco Use Status: Never used Tobacco e-Cigarette/Vaping Use: Never Used Use of substances other than those prescribed or required for medical reasons: No Do you feel safe in your current relationship?: No Current Relationship Do you have thoughts of harming others: None Do you have a plan to hurt others: No Plan service: No Current occupational status: employed Cognitive needs: No Hearing needs: No Vision needs: Yes Questionnaire Thrive Questionnaire Date Thrive assessed: 09/25/23 CADE-7 AMB Questionnaire CADE-7 Date CADE - 7 assessed: 09/25/23 Source: Developed by Drs. Rodriguez Lewis, Sofia Courtney, Davy Kim and colleagues, with an educational misael from [employer]. Review of Systems Const Denies chills, Reports fatigue, Denies fever(s), Denies headache(s), Reports malaise and Reports weight loss Eyes Reports no additional complaints ENT Reports no additional complaints, Denies dizziness and Denies headache(s) Card Denies chest pain, Denies irregular heart rhythm, Denies lightheadedness, Denies palpitations and Denies dyspnea Resp Denies cough and Denies dyspnea GI Reports no additional complaints Reports no additional complaints Musc Reports no additional complaints, Denies abnormal gait and Denies tingling Skin/Breast Denies lesions and Denies rash Neuro Denies abnormal gait, Denies dizziness, Denies headache(s) and Denies tingling Psych Reports no additional complaints Endo Reports fatigue and Denies palpitations Main/Lymph Reports no additional complaints Physical exam (Primary Care) Tobacco/Smoking Status: Tobacco use Status Tobacco use date assessed 10/12/23 10/12/23 10:55 Patient Tobacco Use Status Never used Tobacco 10/12/23 10:55 e-Cigarette/Vaping Use Never Used 10/12/23 10:55 Thrive Assessment: Date of Thrive Assessment Date Thrive assessed 09/25/23 10/12/23 10:55 Telehealth Telehealth Telehealth Platform: [employer] Devices Location of provider rendering services: practice address Location of patient: address on file Patient Identification confirmed using: Name, : Yes Telehealth method: video Patient verbally consented to treatment: Yes Patient verbally consented to billing insurance company: Yes Patient informed of any privacy concerns related to visit: Yes Minutes spent on Phone/Video with Pt.: 15 Assessment and Plan Assessment & Plan (1) 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: Code(s): C78.5 - Secondary malignant neoplasm of large intestine and rectum Plan: Currently receiving palliative chemotherapy 3 times a week, and referral to [facility] to seeo see if she is a candidate for any clinical trials involving mmunotherapy for Metastatic Anal Squamous Cell Carcinoma. Coding Level of Care Code Tele New Pt Level 3 (53907) Diagnoses 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 C78.5
== END 2023-10-12 16:41 | disposition home or self-care (01) ==
PROVIDERS: PCP Internal Medicine; Visit Provider Internal Medicine
DX: C78.5 Secondary malignant neoplasm of large intestine and rectum (principal)
CPT/HCPCS: 99213

== ENCOUNTER 2023-11-20 10:54 | Outpatient (AMB) | payer OTHER, SELFPAY ==
--- NOTE | 2023-11-20 11:24 | A.OFFVIS_ITS ---
Vital Signs 11/20/23 11:27 Height 5 ft 2 in Weight 160 lb BMI 29.3 BP 110/62 Blood Pressure Location Lt brachial Position Sitting Pulse 89 Intake Visit Reasons: 3 Month follow up Intake Note: Patient follow up for Patient cc: abdominal pain with bloating, acid reflex on and off, and between diarrhea and constipation. Software Trainer Required: No Accompanied by: Self / Same As Patient Allergies No Known Allergies Allergy (Mild, Verified 11/20/23 11:24) NOT APPLICABLE HPI HPI 3 Month follow up: Details: LAST VISIT History of Helicobacter pylori infection IBS (irritable bowel syndrome) Chronic idiopathic constipation Rectal pain Mass of anus Lesion of liver Plan Follow-up with colorectal surgery, patient has an appointment today. Follow-up with oncology. Continue current bowel regimen. Patient will return in the office in 3 months. Patient will call the office sooner if she will have any GI concerning symptoms. Patient is agreeable to this plan and verbalizes understanding of instructions. She was given the opportunity to ask questions and all questions answered TODAY'S VISIT Patient is here today for follow-up. Patient has been on chemotherapy treatment IV with carboplatin and Taxol in oncology department every Sunday. Patient reports that she has been tolerating the treatment well. Started on 10/03/2023. Patient denies any rectal pain. Only takes pain medication on as needed basis. Reports that she is moving her bowels well without any issues. Taking stool softeners daily. Patient reports to have good appetite. Patient reports that she drinks plenty of fluids. Reports to have good support at home. Patient is in good spirits today. Patient will be calling [facility] as recommended by her oncologist for 2nd opinion, currently patient is staying locally as she is having no issues with her chemo. Due to patient's insurance patient will need a letter indicating the need for immunotherapy at [facility] to undergo possible clinical trials. PET scan was denied by patient's insurance. [facility] Medical History (Updated 10/31/23 @ 13:00 by Betsy Mitchell MD) 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 History of Helicobacter pylori infection Polyarthralgia Obesity (BMI 30.0-34.9) Left ankle sprain Vitamin D deficiency Perimenopause Iron deficiency anemia Dyslipidemia Acquired hypothyroidism Surgical History History of liver biopsy History of esophagogastroduodenoscopy (EGD) H/O colonoscopy Family History Maternal Uncle Mental health disorder Social History Household Members: Family and Children Housing: House Alcohol intake: never Patient Tobacco Use Status: Never used Tobacco e-Cigarette/Vaping Use: Never Used service: No Current occupational status: employed Cognitive needs: No Hearing needs: No Vision needs: Yes Review of Systems Const Details: Reports hair loss from chemo Denies weight gain and Denies weight loss ENT Reports no additional complaints, Denies dysphagia and Denies odynophagia Card Reports no additional complaints Resp Reports no additional complaints GI Denies abdominal pain, Denies belching, Denies melena, Denies bloating, Denies change in bowel habits, Denies dysphagia, Denies excessive flatus, Denies dyspepsia, Denies heartburn, Denies diarrhea, Denies loose stools, Denies nausea, Denies odynophagia and Denies vomiting Musc Reports no additional complaints Neuro Reports no additional complaints Psych Reports no additional complaints Endo Reports no additional complaints Physical Exam Vital Signs: Last Vital Signs Pulse 89 11/20/23 11:27 BP 110/62 11/20/23 11:27 BMI result Body Mass Index 29.3 Const General: healthy appearing and no acute distress Orientation/consciousness: patient oriented x3 Resp Effort & Inspection: normal respiratory effort, able to speak in complete sentences, no tracheal deviation and symmetric chest movement Auscultation: clear to auscultation bilaterally Cardio Rate: regular rate GI Inspection: Yes normal to inspection and No distended Palpation (GI): Soft to palpation, not firm, nontender and No hepatosplenomegaly present Auscultation: normal bowel sounds General: Yes no CVA tenderness Back/Spine/Pelvis Back: no CVA tenderness Skin General skin exam: elasticity normal, turgor normal and dry skin Neuro General: patient oriented x3 Psych Appearance: grossly normal Mental Status: mental status grossly normal Assessment & Plan Assessment & Plan (1) Anal squamous cell carcinoma: Code(s): C21.0 - Malignant neoplasm of anus, unspecified Category: Medical (2) 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: Code(s): C78.5 - Secondary malignant neoplasm of large intestine and rectum Category: Medical (3) History of Helicobacter pylori infection: Code(s): Z86.19 - Personal history of other infectious and parasitic diseases Category: Medical (4) Mass of anus: Code(s): K62.89 - Other specified diseases of anus and rectum Category: Medical (5) Chronic idiopathic constipation: Code(s): K59.04 - Chronic idiopathic constipation (6) Rectal pain: Code(s): K62.89 - Other specified diseases of anus and rectum (7) Lesion of liver: Code(s): K76.9 - Liver disease, unspecified Plan Continue current treatment with Colace. Increase fluid intake and activity to promote better bowel motility. Patient is following with oncology for her he will treatments. Encouraged to call the office if she will have any GI concerning symptoms. Patient will return in 3 office, sooner if clinically necessary. Patient is agreeable to this plan and verbalizes understanding of instructions. She was given the opportunity to ask questions and all questions answered. Thank you for allowing me to participate in her care Coding Level of Care Code Est Pt Level 3 (06403) Diagnoses Anal squamous cell carcinoma C21.0 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 C78.5 History of Helicobacter pylori infection Z86.19 Mass of anus K62.89 Chronic idiopathic constipation K59.04 Rectal pain K62.89 Lesion of liver K76.9 Time Spent (min) 30 Comment 20 minutes spent with patient and additional 10 minutes spent reviewing her records
[2023-11-20 11:27] VITALS: BP 110/62; PULSE 89; BMI 29.3
== END 2023-11-20 11:54 | disposition home or self-care (01) ==
PROVIDERS: PCP Internal Medicine; Visit Provider Nurse Practitioner Family
DX: C21.0 Malignant neoplasm of anus, unspecified (principal); C78.5 Secondary malignant neoplasm of large intestine and rectum; Z86.19 Personal history of other infectious and parasitic diseases; K62.89 Other specified diseases of anus and rectum; K59.04 Chronic idiopathic constipation; K76.9 Liver disease, unspecified
CPT/HCPCS: 99213

== ENCOUNTER → 2023-11-20 10:54 | Outpatient (BNVA) | payer OTHER, SELFPAY | PROVIDERS: PCP Internal Medicine; Visit Provider Nurse Practitioner Family | DX: C21.0 Malignant neoplasm of anus, unspecified (principal); C78.5 Secondary malignant neoplasm of large intestine and rectum; K59.04 Chronic idiopathic constipation; K76.9 Liver disease, unspecified; Z86.19 Personal history of other infectious and parasitic diseases | CPT/HCPCS: 99212 ==

== ENCOUNTER 2023-11-28 11:30 | Outpatient (REF) | payer OTHER, SELFPAY ==
--- NOTE | ~2023-11-28 | US_ITS ---
EXAMINATION: US ABDOMEN LIMITED CLINICAL INFORMATION: Right upper quadrant pain, question cholecystitis, patient on chemotherapy. COMPARISON: CT dated 08/29/2023 TECHNIQUE: Real-time imaging of the right upper quadrant abdominal viscera. FINDINGS: Pancreas is not adequately seen. No free fluid in the region. Multiple liver lesions are seen here. Hypoechoic. The largest in the right lobe measured by the motor vehicle parts interpreter at 5.1 x 3.7 x 3.7 cm. Largest in the left lobe measured at 4.2 x 2.6 x 4.5 cm. The large lesion in the right lobe may have a cystic area associated with it measuring 2.6 x 2.1 cm. Other cystic areas are seen in the liver and these could represent necrotic lesions or cystic change Gallbladder showing no evidence of stone or edema. Common duct is 3 mm. The right kidney is 10.6 cm. No hydronephrosis is seen. US/US abdomen limited IMPRESSION: Findings as described above. Numerous liver lesions with largest measured by the motor vehicle parts interpreter in the right and left lobe as described. Consistent with malignancy. As described some cystic change associated with the right liver lesion and also other smaller cysts are seen in the liver which could represent cystic change or necrosis of existing lesions. Given this underlying infection cannot be excluded If further evaluation is warranted recommend CT for direct comparison to study from 08/29/2023
== END 2023-11-28 11:31 | disposition home or self-care (01) ==
LOC: HO.US 11:30
PROVIDERS: PCP Internal Medicine; Visit Provider Internal Medicine
DX: R10.11 Right upper quadrant pain (principal)
CPT/HCPCS: 76705

== ENCOUNTER 2023-12-12 10:12 | Outpatient (REF) | payer OTHER, SELFPAY ==
--- NOTE | ~2023-12-12 | CT_ITS ---
EXAMINATION: CT ABDOMEN AND PELVIS WITH CONTRAST CLINICAL INFORMATION: Question of progression of metastatic disease in the liver COMPARISON: Ultrasound abdomen 11/28/2023. CT abdomen/pelvis 08/29/2023. TECHNIQUE: Multidetector volumetric images were obtained from the superior aspect of the liver through the pubic symphysis following administration 85 mL of Omnipaque 350 intravenous contrast. Sagittal and coronal reformatted images were obtained on the technologist's workstation. Oral contrast: No This CT examination was performed using dose optimization techniques as appropriate, variously including the following: *Automated exposure control *Adjustment of mA and/or kV according to patient size (this includes techniques or standardized protocols for targeted exams where dose is matched to indication/reason for exam; i.e. extremities or head) *Use of iterative reconstruction technique DLP: 393 mGy-cm FINDINGS: LUNG BASES: The visualized lung bases are unremarkable. There is bibasilar scarring. LIVER, GALLBLADDER, AND BILIARY TREE: Diffuse hepatic metastatic disease is present which appears considerably worse than prior. Many more metastatic lesions are present than previously and those which were present have increased in size. As an example, the previously seen 1.4 cm lesion in the right lobe of the liver now measures 2.8 cm in maximal dimension (3:27 compare prior 3:22). A lesion in the caudate lobe that had measured 0.5 cm and was barely perceptible now measures 1.6 cm (3:23 compare prior 3:20). All lesions have behaved in a similar fashion. No biliary ductal dilatation. The gallbladder is unremarkable with no evidence of calcified gallstones, gallbladder wall thickening, or obvious pericholecystic inflammatory changes. PANCREAS: Unremarkable. SPLEEN: Unremarkable. ADRENAL GLANDS: Unremarkable. KIDNEYS AND URETERS: The kidneys are normal in size, shape, and attenuation. No hydronephrosis, hydroureter, or calculi seen. No perinephric stranding. BLADDER: Symmetric bladder wall thickening without mass. GASTROINTESTINAL TRACT: Again seen is an abnormal rectum with thickened mass-like areas. A presacral mass had measured 2.0 x 4.1 cm now measures 2.3 x 4.3 cm (3:79 compare prior 3:75). A mass to the left of the rectum measures 3.2 x 3.8 cm, previously 3.2 x 2.9 cm (3:76 compare prior 3:72). There is no evidence of bowel obstruction. The appendix appears normal. ABDOMINAL WALL: No significant hernia is appreciated. LYMPH NODES: Aside from the perirectal abnormalities, no retroperitoneal lymphadenopathy. VASCULAR: Unremarkable. PELVIC VISCERA: Unremarkable. OSSEOUS STRUCTURES: Mild degenerative changes are present in the spine. No bony destructive lesion. CT/CT abdomen pelvis w IV con IMPRESSION: 1. Worsening of hepatic metastatic disease. 2. Slight increase in size of perirectal masses. Fleischner guidelines were followed.
[2023-12-12] MEDS: iohexoL 350 MG/ML 100 ML INFUS..BTL IV (12:41)
[2023-12-12] MEDS: Barium Sulfate Oral (Berry) 450 ML ORAL.SUSP 900 ML PO (12:43)
== END 2023-12-12 10:13 | disposition home or self-care (01) ==
LOC: HO.CT 10:12
PROVIDERS: Visit Provider Internal Medicine
DX: C21.0 Malignant neoplasm of anus, unspecified (principal)
CPT/HCPCS: 74177; Q9967

== ENCOUNTER 2024-02-12 09:02 | Outpatient (REF) | payer OTHER, SELFPAY ==
--- NOTE | ~2024-02-12 | CT_ITS ---
EXAMINATION: CT ABDOMEN AND PELVIS WITH CONTRAST CLINICAL INFORMATION: Metastatic anal carcinoma, response to chemotherapy. COMPARISON: None available. TECHNIQUE: Multidetector volumetric images were obtained from the superior aspect of the liver through the pubic symphysis following administration 85 mL of Omnipaque 350 intravenous contrast. Sagittal and coronal reformatted images were obtained on the technologist's workstation. Oral contrast: No This CT examination was performed using dose optimization techniques as appropriate, variously including the following: *Automated exposure control *Adjustment of mA and/or kV according to patient size (this includes techniques or standardized protocols for targeted exams where dose is matched to indication/reason for exam; i.e. extremities or head) *Use of iterative reconstruction technique DLP: 429 mGy-cm FINDINGS: LUNG BASES: -Discoid atelectasis right lower lobe. No effusions. Heart size normal. LIVER, GALLBLADDER, AND BILIARY TREE: -Innumerable hypoattenuating metastases again noted throughout the liver. -There appears to have been progression of these metastases when compared with 12/12/2023. For example, a lesion in the dome of the liver segment 8 previously measured 2.1 cm in diameter with a thin 0.5 cm rim of enhancement, and currently measures 3.2 cm in diameter with a 1.2 cm rim of enhancement. -A segment for a metastasis previously measured 2.9 cm in diameter with a thin 4 mm rim of enhancement, currently measuring 4.4 cm in diameter with a 1.2 cm rim of enhancement. -All of the liver metastasis demonstrate this same pattern, and all demonstrate mildly increasing mass effect upon the adjacent portal and hepatic veins as well as liver capsule. Findings represent progression of metastases. -No definite new liver metastases seen. -Mild left hepatic lobe biliary dilatation has developed, possibly representing a trapped bile duct near the dayne hepatis. -The common hepatic and common bile duct are normal in caliber. -Gallbladder is unremarkable. PANCREAS: Unchanged. Mild atrophy. No pancreatic ductal dilatation. SPLEEN: Unremarkable. ADRENAL GLANDS: Unchanged. KIDNEYS AND URETERS: The kidneys are normal in size, shape, and attenuation. No hydronephrosis, hydroureter, or calculi seen. No perinephric stranding. BLADDER: Stable mild symmetric bladder wall thickening without definitive mass. No calculi. GASTROINTESTINAL TRACT: -The perirectal/perianal mass has increased in size and extent . For example, the left para midline aspect (series 3, image 76) has increased to a size of 5.7 x 3.5 cm, previously measuring 3.2 x 3.8 cm. -80 right posterior component (series 3, image 78) has increased in size to 5.2 x 2.8 cm, previously 4.3 x 2.3 cm. -There is no extension through the medial rectal fascia in the right posterior aspect and left superior aspect. -Perianal component also appears slightly thickened as seen on series 3, image 85) -There is no obstruction. There is a normal appendix. -Moderate fecal retention seen. -Stomach is decompressed. No duodenal abnormality or small bowel abnormality. ABDOMINAL WALL: No significant hernia is appreciated. LYMPH NODES: Aside from the perirectal findings, no retroperitoneal lymphadenopathy. -Stable minimally prominent inguinal lymph nodes. VASCULAR: Unremarkable. PELVIC VISCERA: Unremarkable. OSSEOUS STRUCTURES: No lytic or blastic bone lesions. Mild spinal degenerative changes again noted. These worst at L5-S1. There is significant facet arthropathy at L4-[address]/CT abdomen pelvis w IV con IMPRESSION: 1. Worsening metastatic disease within the liver as discussed. 2. Increasing size of infiltrative perirectal/perianal mass. 3. Additional ancillary findings as discussed in the body of the report. Findings discussed with Dr. Mitchell at 1:15 PM, 02/13/2024. Electronically signed by: Jhonathan Dunaway MD 02/13/2024 01:34 PM EDT Workstation: [id number]
[2024-02-12] MEDS: iohexoL 350 MG/ML 100 ML INFUS..BTL 85 ML IV (09:43)
== END 2024-02-12 09:03 | disposition home or self-care (01) ==
LOC: HO.CT 09:02
PROVIDERS: PCP Internal Medicine; Visit Provider Internal Medicine
DX: C21.0 Malignant neoplasm of anus, unspecified (principal)
CPT/HCPCS: 74177; Q9967

== ENCOUNTER → 2024-02-12 09:12 | Outpatient (BNV) | payer OTHER, SELFPAY | PROVIDERS: PCP Internal Medicine; Visit Provider Radiology Diagnostic Radiology | DX: C21.0 Malignant neoplasm of anus, unspecified (principal) | CPT/HCPCS: 74177 ==

== ENCOUNTER 2024-02-19 11:28 | Emergency (ER) | payer OTHER, SELFPAY ==
--- NOTE | ~2024-02-19 | CT_ITS ---
EXAMINATION: CT ANGIOGRAM OF THE CHEST WITH AND WITHOUT CONTRAST (CT PULMONARY ANGIOGRAM FOR PE) CLINICAL INFORMATION: Right upper quadrant/right chest pain. History of metastatic anal carcinoma. COMPARISON: CT chest 09/21/2023. TECHNIQUE: Multidetector volumetric imaging was performed of the chest following the administration of 65 mL Omnipaque 350 intravenous contrast. No contrast reaction reported Sagittal, coronal, and MIP oblique sagittal (through the chest only) reformatted images were obtained on the CT workstation, uploaded to PACS, and reviewed. Total exam dose-length product 241 mGy-cm This CT examination was performed using dose optimization techniques as appropriate, variously including the following: *Automated exposure control *Adjustment of mA and/or kV according to patient size (this includes techniques or standardized protocols for targeted exams where dose is matched to indication/reason for exam; i.e. extremities or head) *Use of iterative reconstruction technique FINDINGS: QUALITY OF STUDY/CONTRAST BOLUS: Satisfactory. PULMONARY ARTERIES: Evaluation is limited due to respiratory motion. No central pulmonary emboli. No discrete large segmental pulmonary emboli. THORACIC AORTA: No aneurysm or dissection. LUNG: Mosaic attenuation of lung parenchyma with trace bronchial wall thickening. Platelike opacities in the right lower lobe with increased parenchymal lucency anterior to the platelike opacities in the right lower lobe. No discrete new pulmonary nodule, although evaluation is very limited due to motion. PLEURA: No pleural effusion or pneumothorax. MEDIASTINUM: Normal heart size. No pericardial effusion. No hilar or mediastinal lymphadenopathy. No evidence of septal bowing or right heart strain. CHEST WALL/AXILLA: No axillary or internal mammary lymphadenopathy. UPPER ABDOMEN: Hepatosplenomegaly. Innumerable metastatic liver lesions, better characterized on recent CT abdomen from 02/12/2024. No adrenal nodule or mass. OSSEOUS STRUCTURES: No acute or suspicious osseous abnormality. CT/CT angio chest PE protocol IMPRESSION: 1. Evaluation is limited due to respiratory motion. 2. No central pulmonary emboli. No discrete proximal segmental pulmonary emboli. 3. Platelike opacities in the right lower lobe with increased parenchymal lucency anterior to the platelike opacities suggestive of partial atelectasis with air trapping. 4. Mosaic attenuation of the lung parenchyma with minimal bronchial wall thickening that could be seen in the context of small airways disease. 5. Limited evaluation of pulmonary nodules due to respiratory motion, in this patient with a history of metastatic anal cancer, more appropriate oncology staging in the outpatient setting could be obtained as clinically warranted. 6. Innumerable metastatic liver lesions, better characterized on recent CT abdomen from 02/12/2024. Electronically signed by: Vilma Sanders MD 02/19/2024 04:34 PM EDT
[2024-02-19 11:57] VITALS: BP 150/95; PULSE 119; RESP 18; TEMP 36.6; O2SAT 98; BMI 28.8
--- NOTE | 2024-02-19 12:05 | ED_ITS ---
HPI - General Adult General Chief complaint: Abdominal Pain Stated complaint: Pain in lungs Time Seen by Provider: 02/19/24 13:13 History of Present Illness ED Provider: Wale RODRÍGUEZ narrative: The patient is a 53-year-old female who was diagnosed with anorectal cancer earlier this year in August. She has recently completed a course of chemotherapy which was felt to not be very effective. Her last dose of chemotherapy was a week ago. She presents to the hospital today for evaluation of pain in the right upper quadrant of her abdomen or right lower chest which is worse when she takes a deep breath. She does not really feel short of breath. She has had no significant coughing. She has had no fever, sweats or chills. She has had no pain or swelling in her legs. The patient says that she has been told that the chemotherapy was not very effective and that the next treatment modality will be immunotherapy. Apparently the tumor was not amenable to resection. The patient had a CT scan of the abdomen and pelvis 6 days ago on February 12. This showed worsening metastatic disease within the liver and increasing size and infiltration of the perirectal/perianal mass. Related Data Previous Rx's ?Medication ?Instructions ?Recorded docusate sodium 100 mg capsule 100 mg PO BID #60 caps 09/14/23 (Colace) levothyroxine 125 mcg tablet 125 mcg PO QAM #90 tabs 11/04/23 loperamide 2 mg capsule (Imodium 2 mg PO Q4H PRN Diarrhea #60 caps 12/10/23 A-D) ondansetron 8 mg disintegrating 8 mg PO Q8H PRN Nausea And 12/11/23 tablet Vomiting #60 tabs dexamethasone 2 mg tablet 2 mg PO BID #30 tabs 12/24/23 ciprofloxacin HCl 500 mg tablet 500 mg PO DAILY #5 tabs 01/02/24 (Cipro) omeprazole 20 mg delayed 20 mg PO BID #60 tabs 01/04/24 release,disintegrating tablet prochlorperazine maleate 10 mg 10 mg PO Q8H PRN Nausea #30 tabs 01/26/24 tablet (Compazine) simethicone 250 mg capsule 250 mg PO BID #30 caps 01/26/24 (Phazyme) calamine 3.5 %-menthol 0.2 1 appl topical TID #45 grams 01/30/24 %-petrolatum 69 %-zinc 16.5 % topical paste hydroxyzine HCl 25 mg tablet 25 mg PO TID #30 tabs 01/30/24 pramoxine-calamine 1 %-8 % lotion 1 appl topical QID #45 mL 01/31/24 (Calamine Medicated) oxycodone 10 mg tablet 10 mg PO Q6H PRN Pain (Scale Score 02/13/24 7-10) #90 tabs Allergies Allergy/AdvReac Type Severity Reaction Status Date / Time No Known Allergies Allergy Mild NOT Verified 02/19/24 11:59 APPLICABLE Review of Systems 2 Review of Systems: Yes all other systems are reviewed and are negative [facility] Past Medical History Medical History (Updated 02/19/24 @ 16:54 by Arnold Echevarria MD) 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 History of Helicobacter pylori infection Polyarthralgia Obesity (BMI 30.0-34.9) Left ankle sprain Vitamin D deficiency Perimenopause Iron deficiency anemia Dyslipidemia Acquired hypothyroidism Surgical History History of liver biopsy History of esophagogastroduodenoscopy (EGD) H/O colonoscopy Family History Family History Maternal Uncle Mental health disorder Social History Social History Household Members: Family and Children Housing: House Alcohol intake: never Patient Tobacco Use Status: Never used Tobacco Smoked in Last 30 Days: No e-Cigarette/Vaping Use: Never Used Use of substances other than those prescribed or required for medical reasons: No Advance Directives: No Advance Directives Information Provided: No Patient : No service: No Current occupational status: employed Cognitive needs: No Hearing needs: No Vision needs: Yes Physical Exam ED Vital Signs: Vital Signs - 24 hr 02/19/24 11:57 02/19/24 14:12 02/19/24 16:42 Temperature 97.8 F 98.1 F 97.8 F Pulse Rate 119 H 95 106 H Respiratory Rate 18 18 16 Blood Pressure 150/95 H 127/70 104/76 Pulse Oximetry 98 97 94 Oxygen Delivery Method Room Air Room Air Room Air 02/19/24 17:02 Temperature 97.8 F Pulse Rate 106 H Respiratory Rate 16 Blood Pressure 104/76 Pulse Oximetry 94 Oxygen Delivery Method Room Air BMI result Body Mass Index 28.8 Const Other: The patient is awake and alert. She is pleasant and cooperative. She does not appear obviously ill or in significant discomfort. She does not appear short of breath. HENMT Other: Face is symmetrical. Mucous membranes moist. Eyes Other: Pupils are round equal, conjunctivae clear Neck Other: Moving her neck easily Chest Other: There is some tenderness with palpation of the right costal margin but is difficult to distinguish whether this is actual chest wall tenderness or abdominal tenderness. No other chest wall tenderness. No subcutaneous emphysema crepitus.. Resp Effort & Inspection: normal respiratory effort Auscultation: clear to auscultation bilaterally Cardio Other: The patient is mildly tachycardic. The patient has a regular rate and rhythm with no murmur. GI Other: Abdomen exhibit some right upper quadrant tenderness. No rebound or guarding. The other quadrants of the abdomen are nontender. Skin Other: Skin is dry and unremarkable Neuro Other: The patient is awake and alert with a normal mental status. Cranial nerves are grossly intact. She moves her extremities normally. Mental status is normal. She seems neurologically intact. Extrem Other: No calf swelling or asymmetry or tenderness or edema. General: Yes normal to inspection Course Course Course Narrative: RME: Done bY SAMRA Freeman. 53-year-old female history of stage IV liver colon cancer presents to ED for right-sided upper quadrant chest pain with pleurisy. Sent by Dr. Mitchell to evaluate and rule out PE. Patient is on chemo. Negative for any lower extremity swelling, pitting edema, calf tenderness. Patient is tachycardic at 119. Lungs clear. Case discussed with charge nurse patient will be brought to the ED. labs EKG ordered. Medications Administered Discontinued Medications Generic Name Dose Route Start Last Admin Trade Name Freq PRN Reason Stop Dose Admin Hydromorphone HCl 1 mg 02/19/24 14:57 02/19/24 15:09 Hydromorphone Hcl 1 Mg/Ml Syringe IVPUSH 02/19/24 14:58 1 mg ONCE ONE Administration Protocol Sodium Chloride 1,000 mls @ 999 mls/hr 02/19/24 13:45 02/19/24 15:09 Ns IV 02/19/24 14:45 Infused .Q1H1M DANNY Infusion Iohexol 65 ml 02/19/24 14:31 02/19/24 14:32 Iohexol 350 Mg/Ml 100 Ml Infus..Btl IV 02/19/24 14:32 65 ml ONCE ONE Administration Medical Decision Making Medical Decision Making [facility] Narrative: The patient is a 53-year-old female with a history of metastatic anorectal cancer that was diagnosed earlier this year. She has taken a course of chemotherapy but despite this a recent CT scan shows progression of the disease. She presents with right upper quadrant abdominal pain that is worse when she takes a deep breath. She does not have a cough or hemoptysis or feel short of breath however. She has no findings on exam to suggest the presence of a DVT. Her oxygenation on room air is good and she does not appear short of breath at all. She says that she has been taking two 10 mg oxycodone tablets every 5 or 6 hours for the pain. Given her history of metastatic cancer and a description of pleuritic discomfort we performed a CT pulmonary angiogram that does not show any definite pulmonary emboli. She does have a very large liver filled with a numerable metastases. I suspect that her pain is more related to her liver metastases than an acute pulmonary process. I think she may be discharged with a plan for pain control. I contacted Dr. Mitchell explaining that I felt the patient could be discharged and that the patient might need additional pain medications. Dr. Mitchell will be assisting in managing the patient has pain medications. Lab Data 02/19/24 13:02 02/19/24 13:02 Labs: Lab Results 02/19/24 Range/Units 13:02 WBC 7.1 (4.8-10.8) X10*3/uL RBC 3.73 L D (4.20-5.50) X10*6/uL Hgb 11.6 L D (12.0-16.0) g/dl Hct 33.8 L (37.0-47.0) % MCV 90.6 (80.0-98.0) fL MCH 31.1 (27.0-33.0) pg MCHC 34.3 (31.0-35.0) g/dl RDW 17.0 H (11.0-16.0) % Plt Count 160 D (160-400) X10*3/uL MPV 9.0 L (9.4-12.3) fL Immature Gran % (Auto) Cancelled Neut % (Auto) Cancelled Lymph % (Auto) Cancelled Childress % (Auto) Cancelled Eos % (Auto) Cancelled Baso % (Auto) Cancelled Lymph # (Auto) Cancelled Childress # (Auto) Cancelled Eos # (Auto) Cancelled Baso # (Auto) Cancelled Abs Immat Gran (auto) Cancelled Absolute Neuts (auto) Cancelled Absolute Nucleated RBC 0.020 H (0.0-0.012) X10*3/uL Nucleated RBC % (auto) 0.3 H (0.0-0.2) /100WBC Neutrophils % (Manual) 57 (45-73) % Band Neutrophils % 7 H (3-5) % Lymphocytes % (Manual) 19 L (20-40) % Atypical Lymphs % (Man) 1 (0-6) % Monocytes % (Manual) 13 H (2-11) % Metamyelocytes % 2 % Myelocytes % 1 % Abs Neuts (Manual) 4.5 (2.0-8.3) X10*3/uL Lymphocytes # (Manual) 1.3 (1.2-4.9) X10*3/uL Atyp Lymphs # (Manual) 0.1 x10*3/uL Monocytes # (Manual) 0.9 (0.1-1.2) X10*3/uL Metamyelocytes # 0.1 X10*3/uL Myelocytes # 0.1 X10*/uL Platelet Estimate NORMAL (NORMAL) Plt Morphology Comment NORMAL RBC Morphology NOTED Polychromasia 1+ (0-2) /OIF Basophilic Stippling 1+ (0-2) /OIF Macrocytosis 1+ (5-14) /OIF Tear Drop Cells 1+ (0-2) /OIF PT 13.1 H (10.9-12.4) SEC INR 1.1 (0.9-1.1) APTT 29.1 (26.0-36.8) SEC Sodium 134 L (135-145) mmol/L Potassium 4.1 D (3.3-5.1) mmol/L Chloride 92 L (96-108) mmol/L Carbon Dioxide 28 (22-29) mmol/L Anion Gap 18 (12-20) BUN 14 (9-16) mg/dL Creatinine 0.75 (0.5-1.4) mg/dL Estim Creat Clear Calc 79.4 Estimated GFR > 60 Random Glucose 100 (60-115) mg/dL Calcium 10.5 H D (8.4-10.2) mg/dL Total Bilirubin 1.1 H (0.0-1.0) mg/dL Direct Bilirubin 0.5 (0.0-0.5) mg/dL AST 133 H (5-31) U/L ALT 72 H (0-31) U/L Alkaline Phosphatase 312 H (39-117) U/L Troponin I High Sens 15.1 (<3.5-17.0) ng/L Total Protein 7.9 (6.5-8.0) g/dL Albumin 3.9 (3.5-5.0) g/dL Lipase 9 (8-78) U/L Influenza Type A (PCR) NEGATIVE (Negative) Influenza Type B (PCR) NEGATIVE (Negative) RSV RNA Qual (PCR) NEGATIVE (Negative) SARS-CoV-2 RNA (RT-PCR) NEGATIVE (Negative) Discharge Plan Discharge Clinical Impression: Right upper quadrant abdominal pain Patient Disposition: Home, Self-Care Additional Instructions: Your CT scan is not showing blood clots in your lungs or anything in the lungs to explain your pain. I think the pain may be related to the metastatic lesions in your liver. I contacted Dr. Mitchell about the pain and she said she would be sending a new prescription to your pharmacy for additional pain medications. Please stay in touch with Dr. Mitchell regarding your symptoms and your ongoing plans for treatment. Called Dr. Mitchell if you develop any new symptoms or return to the emergency room if significantly worse. Prescriptions: No Action levothyroxine 125 mcg tablet 125 mcg PO QAM Qty: 90 1RF loperamide [Imodium A-D] 2 mg Capsule 2 mg PO Q4H PRN (Reason: Diarrhea) Qty: 60 2RF Rx Instructions: administer after each loose stool until symptoms controlled; do not exceed 8 mg per 24 hrs ondansetron 8 mg Tablet,Disintegrating 8 mg PO Q8H PRN (Reason: Nausea And Vomiting) Qty: 60 1RF dexamethasone 2 mg Tablet 2 mg PO BID Qty: 30 1RF Rx Instructions: for 2 days after chemo ciprofloxacin HCl [Cipro] 500 mg Tablet 500 mg PO DAILY Qty: 5 0RF omeprazole 20 mg Tablet,Disintegrat, Delay Rel 20 mg PO BID Qty: 60 4RF prochlorperazine maleate [Compazine] 10 mg Tablet 10 mg PO Q8H PRN (Reason: Nausea) Qty: 30 2RF Phazyme 250 mg Capsule 250 mg PO BID Qty: 30 2RF Rx Instructions: administer after meals hikncqwf-enqmksg-bjvmxcug-zinc 3.5-0.2-69-16.5 % Paste 1 appl TOPICAL TID Qty: 45 3RF hydroxyzine HCl 25 mg Tablet 25 mg PO TID Qty: 30 2RF Calamine Medicated 1-8 % Lotion 1 appl TOPICAL QID Qty: 45 2RF oxycodone 10 mg Tablet 10 mg PO Q6H PRN (Reason: Pain (Scale Score 7-10)) Qty: 90 0RF Rx Instructions: Partial Fill upon patient request. docusate sodium [Colace] 100 mg capsule 100 mg PO BID Qty: 60 2RF Referrals: Betsy Mitchell MD [Physician] - Angie Carlin MD [Primary Care Provider] - Interventions: ED Discharge Assessment Last Done: 02/19/24 17:02 Discharge Date/Time: 02/19/24 17:02 Print Language: Slovak
[2024-02-19 13:10] LABS: Hematocrit 33.8 % (37.0-47.0); Hemoglobin 11.6 g/dl (12.0-16.0); Mean Corpuscular HGB Conc 34.3 g/dl (31.0-35.0); Mean Corpuscular Hemoglobin 31.1 pg (27.0-33.0); Mean Corpuscular Volume 90.6 fL (80.0-98.0); NRBC Pct Auto 0.3 /100WBC (0.0-0.2); Platelet Count 160 X10*3/uL (160-400); Red Blood Count 3.73 X10*6/uL (4.20-5.50); White Blood Count 7.1 X10*3/uL (4.8-10.8)
[2024-02-19 13:21] LABS: INTERNATIONAL NORM RATIO 1.1 (0.9-1.1); Prothrombin Time 13.1 SEC (10.9-12.4)
[2024-02-19 13:23] LABS: Partial Thromboplastin Time 29.1 SEC (26.0-36.8)
[2024-02-19 13:27] LABS: Alanine Aminotransferase 72 U/L (0-31); Albumin Level 3.9 g/dL (3.5-5.0); Alkaline Phosphatase 312 U/L (39-117); Anion Gap 18 (12-20); Aspartate Amino Transferase 133 U/L (5-31); Bilirubin Total 1.1 mg/dL (0.0-1.0); Blood Urea Nitrogen 14 mg/dL (9-16); Calcium 10.5 mg/dL (8.4-10.2); Carbon Dioxide 28 mmol/L (22-29); Chloride 92 mmol/L (96-108); Creatinine Clr Calc Pharmacy 79.4; Estimated Glomerular Filt Rate > 60; Glucose Random 100 mg/dL (60-115); Potassium 4.1 mmol/L (3.3-5.1); Sodium 134 mmol/L (135-145); Total Protein 7.9 g/dL (6.5-8.0)
[2024-02-19 13:33] LABS: Troponin-I High Sensitivity 15.1 ng/L (<3.5-17.0)
[2024-02-19 13:49] LABS: Influenza A PCR NEGATIVE (Negative); Influenza B PCR NEGATIVE (Negative); Resp Syncy Virus RNA Qual PCR NEGATIVE (Negative); SARS COV2 PCR INHOUSE NEGATIVE (Negative)
[2024-02-19 13:52] LABS: Atypical Lymph Absolute Manual 0.1 x10*3/uL; Atypical Lymphs Percent Manual 1 % (0-6); Band Neutrophils Percent 7 % (3-5); Lymphocytes Absolute Manual 1.3 X10*3/uL (1.2-4.9); Lymphocytes Percent Manual 19 % (20-40); Macrocytosis 1+ (5-14) /OIF; Metamyelocytes Absolute 0.1 X10*3/uL; Metamyelocytes Percent 2 %; Monocytes Absolute Manual 0.9 X10*3/uL (0.1-1.2); Monocytes Percent Manual 13 % (2-11); Myelocytes Absolute 0.1 X10*/uL; Myelocytes Percent 1 %; Neutrophils Absolute Manual 4.5 X10*3/uL (2.0-8.3); Neutrophils Percent Manual 57 % (45-73); RBC Morphology NOTED
[2024-02-19 13:53] LABS: Basophilic Stippling 1+ (0-2) /OIF; Platelet Estimate NORMAL (NORMAL); Platelet Morphology Comment NORMAL; Polychromasia 1+ (0-2) /OIF; Tear Drop Cells 1+ (0-2) /OIF
[2024-02-19] MEDS: 0.9 % Sodium Chloride 1,000 ML 999 ML IV (14:07)
[2024-02-19 14:12] VITALS: BP 127/70; PULSE 95; RESP 18; TEMP 36.7; O2SAT 97
[2024-02-19 14:16] LABS: Bilirubin Direct 0.5 mg/dL (0.0-0.5); Lipase 9 U/L (8-78)
[2024-02-19] MEDS: iohexoL 350 MG/ML 100 ML INFUS..BTL 65 ML IV (14:32)
[2024-02-19] MEDS: HYDROmorphone HCl 1 MG/ML SYRINGE IVPUSH (15:09)
[2024-02-19 16:42] VITALS: BP 104/76; PULSE 106; RESP 16; TEMP 36.6; O2SAT 94
[2024-02-19 17:02] VITALS: BP 104/76; PULSE 106; RESP 16; TEMP 36.6; O2SAT 94
== END 2024-02-19 17:02 | disposition home or self-care (01) ==
PROVIDERS: Physician Assistant; Emergency Provider Emergency Medicine; PCP Internal Medicine
DX: R10.11 Right upper quadrant pain (principal); R05.9 Cough, unspecified; Z79.899 Other long term (current) drug therapy; Z03.818 Encounter for observation for suspected exposure to other biological agents ruled out
CPT/HCPCS: 0241U; 36415; 71275; 80053; 82248; 83690; 84484; 85007; 85027; 85610; 85730; 96361; 96374; 99284; J1171; Q9967

== ENCOUNTER 2024-02-22 10:51 | Outpatient (AMB) | payer OTHER, SELFPAY ==
[2024-02-22 10:53] VITALS: BP 134/82; PULSE 122; O2SAT 97; BMI 29.4
--- NOTE | 2024-02-22 10:53 | MHC.OFFVIS ---
Vital Signs 02/22/24 10:53 Height 5 ft 2 in Weight 160 lb 7.944 oz BMI 29.4 BP 134/82 Blood Pressure Location Lt brachial Position Sitting Pulse 122 H Pulse Source Pulse Oximeter Pulse Oximetry (%) 97 Oxygen Delivery Method Room Air Intake Visit Reasons: 3 month follow up Intake Note: Tomeka presents in office today for a scheduled 3 mos FUV. CC: Pt was seen in ED within the last week. Pt had US and CT performed by Oncology as of 11/27, 12/11, and 02/11. Pt reports that they have still been having RUQ pain over the last 3 days. Pt also reports that they have been having difficulties with the tumor growing. Pt has been able to maintain normal BMs, however; they have been experiencing repeated pain. Pt has been taking oxycodone per PM. Pt has been doing OK but has been feeling very fatigued. 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 Increase fluid intake and activity to promote better bowel motility. Patient is following with oncology for her he will treatments. Encouraged to call the office if she will have any GI concerning symptoms. Patient will return in 3 office, sooner if clinically necessary. Patient is agreeable to this plan and verbalizes understanding of instructions. She was given the opportunity to ask questions and all questions answered. TODAY'S VISIT Patient is here today for follow-up. Patient reports that she is feeling well and has no GI concerning symptoms. Patient is only dealing with pain. Still going for chemotherapy, however her chemotherapy needed to be switched and currently she will be starting new treatment. Patient is under care Dr. Mitchell. Pain is being managed with fentanyl patch and she will be receiving Dilaudid as needed for pain. Patient reports that she is moving her bowels without any issues. Denies any dyspepsia, dysphagia or odynophagia. Denies any melena, hematochezia. CT scan done in February and lesions on the liver and rectal mass increased. No clinical trial in [place]. Patient might be illegible and there might be a clinical trial in [facility]. Patient will be following up with Dr. Mitchell next week. ? 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 History of Helicobacter pylori infection Polyarthralgia Obesity (BMI 30.0-34.9) Left ankle sprain Vitamin D deficiency Perimenopause Iron deficiency anemia Dyslipidemia Acquired hypothyroidism Surgical History (Reviewed 02/22/24 @ 11: by GIOVANNA Amador) History of liver biopsy History of esophagogastroduodenoscopy (EGD) H/O colonoscopy Family History Maternal Uncle Mental health disorder Social History Household Members: Family and Children Housing: House Alcohol intake: never Patient Tobacco Use Status: Never used Tobacco e-Cigarette/Vaping Use: Never Used service: No Current occupational status: employed Cognitive needs: No Hearing needs: No Vision needs: Yes Review of Systems Const Denies weight gain and Denies weight loss ENT Reports no additional complaints, Denies dysphagia and Denies odynophagia Card Reports no additional complaints Resp Reports no additional complaints GI Denies abdominal pain, Denies belching, Denies melena, Denies bloating, Denies change in bowel habits, Denies dysphagia, Denies excessive flatus, Denies dyspepsia, Denies heartburn, Denies diarrhea, Denies loose stools, Denies nausea, Denies odynophagia and Denies vomiting Reports no additional complaints Musc Reports no additional complaints Neuro Reports no additional complaints Psych Reports no additional complaints Endo Reports no additional complaints Physical Exam Vital Signs: Last Vital Signs Pulse 122 H 02/22/24 10:53 BP 134/82 02/22/24 10:53 Pulse Ox 97 02/22/24 10:53 Oxygen Delivery Method Room Air 02/22/24 10:53 BMI result Body Mass Index 29.4 Const General: no acute distress Orientation/consciousness: patient oriented x3 Resp Effort & Inspection: normal respiratory effort, able to speak in complete sentences, no tracheal deviation and symmetric chest movement Auscultation: clear to auscultation bilaterally Cardio Rate: regular rate GI Inspection: Yes normal to inspection and No distended Palpation (GI): Soft to palpation, not firm, nontender and No hepatosplenomegaly present Auscultation: normal bowel sounds General: Yes no CVA tenderness Back/Spine/Pelvis Back: no CVA tenderness Skin General skin exam: elasticity normal, turgor normal and dry skin Neuro General: patient oriented x3 Psych Appearance: grossly normal Mental Status: mental status grossly normal Assessment & Plan Assessment & Plan (1) Anal squamous cell carcinoma: Code(s): C21.0 - Malignant neoplasm of anus, unspecified Category: Medical (2) Mass of anus: Code(s): K62.89 - Other specified diseases of anus and rectum Category: Medical (3) 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 She is aware that when she starts taking pain medication she might become more constipated. Patient was encouraged to increase fluid intake. May take stool softeners as needed. Follow-up in our office in 2-3 months. Patient can call if she will have any GI concerning symptoms. Patient is agreeable to current plan of care and verbalizes understanding of instructions. She was given the opportunity to ask questions and all questions answered. 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
== END 2024-02-22 11:25 | disposition home or self-care (01) ==
PROVIDERS: PCP Internal Medicine; Visit Provider Nurse Practitioner Family
DX: C21.0 Malignant neoplasm of anus, unspecified (principal); K62.89 Other specified diseases of anus and rectum; C78.5 Secondary malignant neoplasm of large intestine and rectum; K76.9 Liver disease, unspecified; K59.04 Chronic idiopathic constipation
CPT/HCPCS: 99213

== ENCOUNTER → 2024-02-22 10:51 | Outpatient (BNVA) | payer OTHER, SELFPAY | PROVIDERS: PCP Internal Medicine; Visit Provider Nurse Practitioner Family | DX: C21.0 Malignant neoplasm of anus, unspecified (principal); C78.5 Secondary malignant neoplasm of large intestine and rectum; K59.04 Chronic idiopathic constipation; K76.9 Liver disease, unspecified; K62.89 Other specified diseases of anus and rectum | CPT/HCPCS: 99212 ==

== ENCOUNTER 2024-02-27 12:49 | Outpatient (REF) | payer OTHER, SELFPAY ==
[2024-02-27 13:00] LABS: MANUAL DIFF FLAG NO
[2024-02-27 13:46] LABS: Basophils Absolute Auto 0.1 X10*3/uL (0.0-0.2); Basophils Percent Auto 0.7 % (0-2); Eosinophils Percent Auto 0.2 % (0-4); Hematocrit 33.6 % (37.0-47.0); Hemoglobin 10.9 g/dl (12.0-16.0); Imm Gran Abs Auto 0.19 X10*3/uL (0.00-0.03); Imm Gran Pct Auto 2.1 % (0.0-0.4); Lymphocytes Percent Auto 11.4 % (20-40); Mean Corpuscular HGB Conc 32.4 g/dl (31.0-35.0); Mean Corpuscular Hemoglobin 30.1 pg (27.0-33.0); Mean Corpuscular Volume 92.8 fL (80.0-98.0); Mean Platelet Volume 10.1 fL (9.4-12.3); Monocytes Absolute Auto 0.8 X10*3/uL (0.1-1.2); Monocytes Percent Auto 8.7 % (2-11); Neutrophils Absolute Auto 7.1 x10*3/uL (2.0-8.3); Neutrophils Percent Auto 76.9 % (45-73); Platelet Count 145 X10*3/uL (160-400); Red Blood Count 3.62 X10*6/uL (4.20-5.50); Red Cell Distribution Width 17.7 % (11.0-16.0); White Blood Count 9.2 X10*3/uL (4.8-10.8)
[2024-02-27 14:31] LABS: Alanine Aminotransferase 62 U/L (0-31); Albumin Level 3.7 g/dL (3.5-5.0); Alkaline Phosphatase 323 U/L (39-117); Anion Gap 21 (12-20); Aspartate Amino Transferase 128 U/L (5-31); Blood Urea Nitrogen 16 mg/dL (9-16); Calcium 9.9 mg/dL (8.4-10.2); Carbon Dioxide 25 mmol/L (22-29); Chloride 96 mmol/L (96-108); Estimated Glomerular Filt Rate > 60; Glucose Random 106 mg/dL (60-115); Potassium 3.6 mmol/L (3.3-5.1); Sodium 138 mmol/L (135-145); Thyroid Stimulating Hormone 15.76 uIU/mL (0.32-4.0); Total Protein 7.7 g/dL (6.5-8.0)
== END 2024-02-27 12:50 | disposition home or self-care (01) ==
LOC: HO.LAB 12:49
PROVIDERS: PCP Internal Medicine; Visit Provider Internal Medicine
DX: C21.0 Malignant neoplasm of anus, unspecified (principal); C78.5 Secondary malignant neoplasm of large intestine and rectum
CPT/HCPCS: 36415; 80053; 84443; 85025

== ENCOUNTER 2024-05-12 08:08 | Outpatient (REF) | payer OTHER, SELFPAY ==
--- NOTE | ~2024-05-12 | US_ITS ---
CLINICAL HISTORY: ? Disease progression US abdomen limited with color Doppler Comparison: CT/SR - CT ABDOMEN PELVIS W IV CON - 02/12/2024 09:24 AM EDT US/IN/SR - US ABDOMEN LIMITED - 11/28/2023 11:49 AM EDT Findings: Midline structures obscured by bowel gas. Liver is normal in size and diffusely echogenic. Liver metastases are present throughout the liver largest liver lesion measures 5.0 x 3.5 x 6.3 cm in the left lobe previously measuring 3.8 x 3.5 x 4.0 cm and 10.8 x 9.0 x 12.0 cm in the right lobe previously measuring 5.0 x 3.4 x 3.6 cm. Common duct 2.1 mm diameter. Gallbladder is physiologically distended. Gallbladder sludge. Mild gallbladder wall thickening may be present. No shadowing gallstones. No pericholecystic fluid. Right kidney measures, 9.4 cm in length. Normal cortical width and echotexture. No hydronephrosis calculus or mass. Trace ascites. Impression: 1. Plethora of hepatic metastases. The 2 largest hepatic masses have both increased in size. 2. Trace ascites. 3. Gallbladder sludge with minimal gallbladder wall thickening 4. Bowel gas obscures midline structures This document has been electronically signed by: Rey Beckham MD on 05/12/2024 13:08:21
== END 2024-05-12 08:09 | disposition home or self-care (01) ==
LOC: HO.US 08:08
PROVIDERS: PCP Internal Medicine; Visit Provider Internal Medicine
DX: C78.5 Secondary malignant neoplasm of large intestine and rectum (principal)
CPT/HCPCS: 76705

== ENCOUNTER → 2024-05-12 08:10 | Outpatient (BNV) | payer OTHER, SELFPAY | PROVIDERS: PCP Internal Medicine; Visit Provider Radiology Diagnostic Radiology | DX: C78.5 Secondary malignant neoplasm of large intestine and rectum (principal) | CPT/HCPCS: 76705 ==

== ENCOUNTER 2024-05-22 18:41 | Inpatient (IN) | payer OTHER, SELFPAY ==
--- NOTE | ~2024-05-22 | CT_ITS ---
CLINICAL HISTORY: diffuse abd pain, known colorectal, liver CA CT abdomen and pelvis with contrast Comparison: CT/GA/SR - CT ABDOMEN PELVIS W IV CON - 02/12/24 09:24 EDT Findings: Elevated right hemidiaphragm with right basilar opacity likely atelectasis but pneumonia not excluded. Left basilar atelectasis. Trace pleural fluid bilaterally. The gallbladder is contracted. No biliary ductal dilatation. There has been interval significant worsening and progression of metastatic disease to the liver with increase in size and number of hepatic metastasis and overall increase in size of the liver. The spleen, pancreas, adrenal glands and kidneys within normal limits. No ureteral stones and no hydronephrosis or hydroureter. No bowel obstruction, pneumoperitoneum, or pneumatosis. Interval increase in size rectal mass now measures approximately 8.8 cm x 7.8 cm with adjacent stranding and small nodes. Circumferential wall thickening or proximal aspect of the rectum. Interval worsening diffuse abdominal and pelvic ascites which is no mild in the abdomen [id number] in the pelvis. There is diffuse stranding/edema in mesenteric fat, intra-abdominal and intrapelvic fat and subcutaneous fat. Uterus and urinary bladder within normal limits. Appendix not identified. No aneurysm of the abdominal aorta. Nonspecific small right inguinal nodes, stable. No acute fracture and no definite disease to the bones. Degenerative disc disease at L5-S1. IMPRESSION: 1. Interval increase in size of large rectal mass and significant worsening of metastatic disease to liver as described. 2. Interval worsening of abdominal and pelvic ascites. 3. Stranding/edema in mesenteric, intra-abdominal and intrapelvic fat and subcutaneous fat. 4. Basilar opacity may represent atelectasis but pneumonia not excluded. Left basilar atelectasis. This document has been electronically signed by: Priscilla You MD on 05/23/2024 00:52:18
--- NOTE | ~2024-05-22 | US_ITS ---
CLINICAL HISTORY: swelling, pain, hx CA - LEFT LEG R O DVT Venous duplex ultrasound left lower extremity Comparison: None Findings: The left peroneal vein was noncompressible with no color flow or spectral flow. The remainder visualized deep veins are fully compressible with normal Doppler color flow and spectral tracings. A 4.4 cm x 0.8 cm by 1.3 cm popliteal cyst. Edema in the lower leg. IMPRESSION: 1. Positive deep vein thrombosis in the left peroneal vein. Otherwise no deep vein thrombosis in left lower extremity. 2. Popliteal cyst and lower leg edema. This document has been electronically signed by: Priscilla You MD on 05/23/2024 01:23:54
--- NOTE | ~2024-05-22 | XR_ITS ---
CLINICAL HISTORY: Shortness on breath, recently diagnosed w PNA 1 view chest x-ray Comparison: CR - XR CHEST 2V - 07/21/20 11:54 EST Findings: Right internal jugular MediPort with the tip overlying cavoatrial junction. Elevated right hemidiaphragm. Mild cegcn-qufwlur-yvqc-left basilar opacities likely atelectasis. No significant pleural effusion pneumothorax. No acute fracture. IMPRESSION: 1. Elevated right hemidiaphragm with mild jdigv-ucnnygq-ossf-left basilar opacities likely atelectasis. 2. Right internal jugular MediPort with tip overlying cavoatrial junction. This document has been electronically signed by: Priscilla You MD on 05/23/2024 05:10:19
[2024-05-22 18:56] VITALS: BP 130/86; PULSE 113; O2SAT 96
[2024-05-22 19:00] VITALS: BP 107/65; PULSE 104; RESP 22; TEMP 36.7; O2SAT 93; BMI 26.0
[2024-05-22 19:36] LABS: Basophils Absolute Auto 0.1 X10*3/uL (0.0-0.2); Basophils Percent Auto 0.4 % (0-2); Eosinophils Percent Auto 0.1 % (0-4); Hematocrit 28.6 % (37.0-47.0); Hemoglobin 9.9 g/dl (12.0-16.0); Imm Gran Abs Auto 0.64 X10*3/uL (0.00-0.03); Imm Gran Pct Auto 2.6 % (0.0-0.4); Lymphocytes Absolute Auto 0.9 X10*3/uL (1.2-4.9); Lymphocytes Percent Auto 3.8 % (20-40); MANUAL DIFF FLAG SCAN; Mean Corpuscular HGB Conc 34.6 g/dl (31.0-35.0); Mean Corpuscular Hemoglobin 30.1 pg (27.0-33.0); Mean Corpuscular Volume 86.9 fL (80.0-98.0); Mean Platelet Volume 9.5 fL (9.4-12.3); Monocytes Absolute Auto 1.4 X10*3/uL (0.1-1.2); Monocytes Percent Auto 5.5 % (2-11); NRBC Pct Auto 0.1 /100WBC (0.0-0.2); Neutrophils Absolute Auto 21.7 x10*3/uL (2.0-8.3); Neutrophils Percent Auto 87.6 % (45-73); Platelet Count 115 X10*3/uL (160-400); Red Blood Count 3.29 X10*6/uL (4.20-5.50); Red Cell Distribution Width 27.8 % (11.0-16.0); SCAN SMEAR FLAG 1; White Blood Count 24.8 X10*3/uL (4.8-10.8)
[2024-05-22 19:43] LABS: Anion Gap 13 (12-20); Blood Urea Nitrogen 16 mg/dL (9-16); Calcium 9.2 mg/dL (8.4-10.2); Carbon Dioxide 25 mmol/L (22-29); Chloride 97 mmol/L (96-108); Creatinine Clr Calc Pharmacy 127.2; Estimated Glomerular Filt Rate > 60; Glucose Random 93 mg/dL (60-115); Lipase 12 U/L (8-78); Magnesium 1.8 mg/dL (1.6-2.6); Potassium 3.4 mmol/L (3.3-5.1); Sodium 132 mmol/L (135-145)
[2024-05-22 20:13] LABS: SLIDE REVIEW VERIFIED
[2024-05-22 20:50] VITALS: BP 119/66; PULSE 100; RESP 14; TEMP 37; O2SAT 93
[2024-05-22 22:07] VITALS: BP 115/69; PULSE 101; RESP 19; TEMP 36.9; O2SAT 93
[2024-05-22 22:45] LABS: Lactic Acid 4.4 mmol/L (0.5-2.0)
[2024-05-22] MEDS: SODIUM CHLORIDE 1932.3 ML IV (23:02)
[2024-05-22] MEDS: cefEPime HCl/D5W 2 GM/50 ML PIGGYBACK IV (23:02)
--- NOTE | 2024-05-22 23:04 | ED_ITS ---
HPI - Abdominal Pain General Chief Complaint: Abdominal Pain Stated Complaint: stomach/leg pain, has stage 4 liver cancer Time Seen by Provider: 05/22/24 21:45 Source: patient Mode of arrival: ambulatory Limitations: no limitations History of Present Illness ED Provider: Dr. Lulu Schaeffer HPI narrative: patient comes to the emergency room complaining of abdominal pain for about a week. Patient states that about a week ago she was diagnosed with pneumonia, given antibiotics, states that since then she has been having a large amount of diarrhea. Patient states that she goes to the bathroom 8-10 times a day. Patient states that she has no vomiting but due to the large amount of diarrhea she has been having a hard time keeping up with her fluid intake. Patient states that her abdomen hurts diffusely and they abdomen has gradually become more distended. Patient is known to have colorectal cancer with metastasis to the liver. Also, for the past 2 weeks, she has been having left lower extremity pain and swelling. Patient states that she is not on any blood thinners. Related Data Home Medications ?Medication ?Instructions ?Recorded ?Confirmed oxycodone 10 mg tablet mg PO 02/22/24 Previous Rx's ?Medication ?Instructions ?Recorded docusate sodium 100 mg capsule 100 mg PO BID #60 caps 09/14/23 (Colace) levothyroxine 125 mcg tablet 125 mcg PO QAM #90 tabs 11/04/23 loperamide 2 mg capsule (Imodium 2 mg PO Q4H PRN Diarrhea #60 caps 12/10/23 A-D) ondansetron 8 mg disintegrating 8 mg PO Q8H PRN Nausea And 12/11/23 tablet Vomiting #60 tabs prochlorperazine maleate 10 mg 10 mg PO Q8H PRN Nausea #30 tabs 01/26/24 tablet (Compazine) simethicone 250 mg capsule 250 mg PO BID #30 caps 01/26/24 (Phazyme) calamine 3.5 %-menthol 0.2 1 appl topical TID #45 grams 01/30/24 %-petrolatum 69 %-zinc 16.5 % topical paste hydroxyzine HCl 25 mg tablet 25 mg PO TID #30 tabs 01/30/24 pramoxine-calamine 1 %-8 % lotion 1 appl topical QID #45 mL 01/31/24 (Calamine Medicated) prednisone 20 mg tablet 60 mg (3 x 20 mg) PO DAILY #90 tabs 03/12/24 fentanyl 50 mcg/hr transdermal 1 patch transdermal Q72H #6 ea 03/19/24 patch omeprazole 20 mg delayed 20 mg PO BID #60 tabs 03/31/24 release,disintegrating tablet fentanyl 25 mcg/hr transdermal 1 patch transdermal Q72H #10 ea 04/28/24 patch hydromorphone 8 mg tablet 8 mg PO Q6H #60 tabs 05/09/24 (Dilaudid) Allergies Allergy/AdvReac Type Severity Reaction Status Date / Time No Known Allergies Allergy Mild NOT Verified 05/22/24 19:02 APPLICABLE Review of Systems Review of Systems Constitutional : No Weight loss, No Fever, No Chills, No Night Sweats, No Fatigue, No Malaise ENT/Mouth : No Hearing loss, No Ear Pain, No Nasal Congestion, No Sinus Pain, No Hoarseness, No sore throat, No Rhinorrhea, No Swallowing Difficulty Eyes: No Eye Pain, No Swelling, No Redness, No Foreign Body, No Discharge, No Vision Changes Cardiovascular : No Chest Pain, No SOB, No Dyspnea on Exertion, No Orthopnea, No Edema, No Palpitations Respiratory : No Cough, No Sputum, No Wheezing, No Smoke Exposure, No Dyspnea Gastrointestinal : No Nausea, No Vomiting, Complaining of copious diarrhea, diffuse abdominal pain and cramping. Patient states that she has noted that her abdomen is significantly more distended than 2 weeks ago Genitourinary : no irregular bleeding, No Dysuria, No Urinary Frequency, No Hematuria, No Urinary Incontinence, No Urgency, No Flank Pain, No Urinary Flow Changes, No Hesitancy Musculoskeletal : No joint pain, No Myalgias, No Joint Swelling Skin : No Skin Lesions, No rash Neuro : No Weakness, No Numbness, No Paresthesias, No Loss of Consciousness, No Dizziness, No Headache Psych : No Anxiety/Panic, No Depression, No SI/HI/AH/VH, No Social Issues, Heme/Lymph: No Bruising, No Bleeding,No Lymphadenopathy Endocrine : No Polyuria, No Polydipsia, No Temperature Intolerance PMFSH Past Medical History Medical History 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 History of Helicobacter pylori infection Polyarthralgia Obesity (BMI 30.0-34.9) Left ankle sprain Vitamin D deficiency Perimenopause Iron deficiency anemia Dyslipidemia Acquired hypothyroidism Surgical History History of liver biopsy History of esophagogastroduodenoscopy (EGD) H/O colonoscopy Family History Family History Maternal Uncle Mental health disorder Social History Social History Household Members: Family and Children Housing: House Alcohol intake: never Patient Tobacco Use Status: Never used Tobacco Smoked in Last 30 Days: No e-Cigarette/Vaping Use: Never Used Use of substances other than those prescribed or required for medical reasons: No Advance Directives: Yes Advance Directives Information Provided: No Advance Directives on File: No Patient : No service: No Current occupational status: employed Cognitive needs: No Hearing needs: No Vision needs: Yes Physical Exam ED Vital Signs: Vital Signs - 24 hr 05/22/24 19:00 05/22/24 20:50 05/22/24 22:07 Temperature 98.0 F 98.6 F 98.4 F Pulse Rate 104 H 100 101 H Respiratory Rate 22 H 14 19 Blood Pressure 107/65 119/66 115/69 Pulse Oximetry 93 93 93 Oxygen Delivery Method Room Air Room Air Room Air 05/22/24 23:31 Temperature 98.9 F Pulse Rate 99 Respiratory Rate 22 H Blood Pressure 108/75 Pulse Oximetry 93 Oxygen Delivery Method Room Air BMI result Body Mass Index 26.0 Const Other: Appearance: Alert. Oriented X3. Ill-appearing Eyes: Pupils equal, round and reactive to light. icteric sclera ENT: Pharynx normal. Neck: Normal inspection. Neck supple. No lymph nodes noted. No crepitus CVS: Normal heart rate and rhythm. Pulses normal. Normal S1 and S2 Respiratory: No respiratory distress. Breath sounds normal. No Wheezing. No rales Abdomen: Soft and nontender. No rigidity. No distention. Skin: lower extremities are cool to touch bilaterally, skin is profusely jaundiced Normal skin turgor. Extremities: no pitting edema in lower extremities. However the left leg is swollen compared to the right leg. Patient has significant pain to palpation in the calf on the left leg Neuro: Oriented X 3. No motor deficit. No sensory deficit. Moving all extremities. No slurred speech. CN 2 through 12 grossly intact Psych: calm, cooperative, normal affect Procedures Paracentesis Time Out Performed: Yes Local Anesthetic: lidocaine 1% Amount of anesthesia used (mL): 15 Fluid: cloudy Post Procedure Exam: awake, alert, normal BP, normal HR and normal SpO2 Patient Tolerated Procedure: well and no complications Complications: none Course Course Course Narrative: - Reviewing patient's record, she was seen by Dr. Mitchell on 05/05/2024. Patient's pain has been controlled with fentanyl patches every 3 days and Dilaudid 8 mg every 6-8 hours p.r.n.. Since then it was noted that patient had significant jaundice. Patient was taking Pembrolizumab, which is being held. Per Dr. Mitchell's note, an ultrasound had been ordered. it was explained to the patient that if she has disease progression, they might have to switch to supportive/hospice care. Medical Decision Making Medical Decision Making [facility] Narrative: patient's white blood cell count 24.8 which is patient's baseline. Patient is chronically anemic, today platelets are a bit lower than usual, today 115 ( 2 weeks ago 229). patient has chronic hyponatremia, not severe, 132. Patient's lactic acid is 4.4. patient's lactic acid elevation likely secondary to dehydration. Patient has been having copious diarrhea for 1 week. Patient states that it started right after she started taking antibiotics for pneumonia. Patient receiving IV fluids. I received a phone call from the lab, patient's lactic acid is 4.4. Patient has chronic elevated leukocytosis. Lactic acid likely secondary from dehydration from having large amount of diarrhea. Patient has not had any fever, no episodes of hypotension. So far, sepsis is not suspected. patient is currently being hydrated, patient seems to be significantly dehydrated ultrasound of the left lower extremity pending. It is likely that patient has a blood clot. patient denies chest pain or shortness of breath. CT scan of the abdomen pelvis pending. Patient has a large burden of tumors in the liver, it may be causing an obstruction. Patient very uncomfortable, patient was given Dilaudid IV. CT scan of the abdomen: interval increased size of large rectal mass and significant worsening of metastatic disease to the liver Ultrasound: Positive for DVT in left lower extremity left peroneal vein C diff is negative SARS/covid/flu: negative UA: pending, patient has not provided urine. ammonia : Within normal limits 42 patient has moderate amount of ascites in the abdomen. Patient has diffuse abdominal pain. a paracentesis was done to rule out spontaneous bacterial peritonitis. A total of 1350 mL of fluid were obtained. Patient will be treated empirically, already received cefepime. I discussed the CT scan results with the patient. In previous notes from Oncology, palliative Care was considered if the scans which show worsening disease which they did. I discussed the above-mentioned with the patient and her daughter. At this time, patient states that she is not ready to give up yet and would like to continue full aggressive treatment. I discussed with the patient and her daughter the risks versus benefits of starting anticoagulation. Patient decided to proceed patient has been started on Eliquis Patient's vitals stable, blood pressure 108/75, pulse 99, respirations 22, temperature 98.9 degrees, O2 sat 93% on room air. Patient tolerated well the procedure, patient states that she feels a bit better after the fluid was removed. All of the peritoneal labs pending. On arrival, patient had received cefepime IV. I discussed the patient with Dr. Golden, patient being admitted also, I discussed the patient with Dr. machado who will follow-up with the labs Differential Diagnosis Differential Diagnoses: The differential diagnosis associated with the presentation includes ( As above) Admission/Observation Consideration of admission/observation: Escalation of care including admission/observation considered Consult Healthcare Provider Management of the patient was discussed with: Hospitalist Lab Data MDM Lab Attestation statement: I reviewed the patient's lab results. 05/22/24 19:23 05/22/24 19:23 Labs: Lab Results 05/22/24 05/22/24 05/22/24 Range/Units 19:23 22:19 23:30 WBC 24.8 H (4.8-10.8) X10*3/uL RBC 3.29 L (4.20-5.50) X10*6/uL Hgb 9.9 L (12.0-16.0) g/dl Hct 28.6 L (37.0-47.0) % MCV 86.9 (80.0-98.0) fL MCH 30.1 (27.0-33.0) pg MCHC 34.6 (31.0-35.0) g/dl RDW 27.8 H (11.0-16.0) % Plt Count 115 L D (160-400) X10*3/uL MPV 9.5 (9.4-12.3) fL Immature Gran % (Auto) 2.6 H (0.0-0.4) % Neut % (Auto) 87.6 H (45-73) % Lymph % (Auto) 3.8 L (20-40) % [place] % (Auto) 5.5 (2-11) % Eos % (Auto) 0.1 (0-4) % Baso % (Auto) 0.4 (0-2) % Lymph # (Auto) 0.9 L (1.2-4.9) X10*3/uL [place] # (Auto) 1.4 H (0.1-1.2) X10*3/uL Eos # (Auto) 0.0 (0.0-0.4) X10*3/uL Baso # (Auto) 0.1 (0.0-0.2) X10*3/uL Abs Immat Gran (auto) 0.64 H (0.00-0.03) X10*3/uL Absolute Neuts (auto) 21.7 H (2.0-8.3) x10*3/uL Absolute Nucleated RBC 0.020 H (0.0-0.012) X10*3/uL Nucleated RBC % (auto) 0.1 (0.0-0.2) /100WBC Smear Tech's Comments VERIFIED Sodium 132 L (135-145) mmol/L Potassium 3.4 (3.3-5.1) mmol/L Chloride 97 (96-108) mmol/L Carbon Dioxide 25 (22-29) mmol/L Anion Gap 13 (12-20) BUN 16 (9-16) mg/dL Creatinine 0.44 L (0.5-1.4) mg/dL Estim Creat Clear Calc 127.2 Estimated GFR > 60 Random Glucose 93 (60-115) mg/dL Lactic Acid 4.4 H* (0.5-2.0) mmol/L Lactic Acid F/U @ 2Hr (0.5-2.0) mmol/L Calcium 9.2 D (8.4-10.2) mg/dL Magnesium 1.8 (1.6-2.6) mg/dL Total Bilirubin 8.5 H (0.0-1.0) mg/dL Direct Bilirubin 6.5 H (0.0-0.5) mg/dL AST 207 H (5-31) U/L ALT 27 (0-31) U/L Alkaline Phosphatase 397 H (39-117) U/L Ammonia 42 (13-55) umol/L Total Protein 5.7 L (6.5-8.0) g/dL Albumin 2.2 L (3.5-5.0) g/dL Lipase 12 (8-78) U/L C. difficile Tox B Gene (Negative) Influenza Type A (PCR) NEGATIVE (Negative) Influenza Type B (PCR) NEGATIVE (Negative) RSV RNA Qual (PCR) NEGATIVE (Negative) SARS-CoV-2 RNA (RT-PCR) NEGATIVE (Negative) 05/22/24 05/23/24 Range/Units 23:50 00:54 WBC (4.8-10.8) X10*3/uL RBC (4.20-5.50) X10*6/uL Hgb (12.0-16.0) g/dl Hct (37.0-47.0) % MCV (80.0-98.0) fL MCH (27.0-33.0) pg MCHC (31.0-35.0) g/dl RDW (11.0-16.0) % Plt Count (160-400) X10*3/uL MPV (9.4-12.3) fL Immature Gran % (Auto) (0.0-0.4) % Neut % (Auto) (45-73) % Lymph % (Auto) (20-40) % [place] % (Auto) (2-11) % Eos % (Auto) (0-4) % Baso % (Auto) (0-2) % Lymph # (Auto) (1.2-4.9) X10*3/uL [place] # (Auto) (0.1-1.2) X10*3/uL Eos # (Auto) (0.0-0.4) X10*3/uL Baso # (Auto) (0.0-0.2) X10*3/uL Abs Immat Gran (auto) (0.00-0.03) X10*3/uL Absolute Neuts (auto) (2.0-8.3) x10*3/uL Absolute Nucleated RBC (0.0-0.012) X10*3/uL Nucleated RBC % (auto) (0.0-0.2) /100WBC Smear Tech's Comments Sodium (135-145) mmol/L Potassium (3.3-5.1) mmol/L Chloride (96-108) mmol/L Carbon Dioxide (22-29) mmol/L Anion Gap (12-20) BUN (9-16) mg/dL Creatinine (0.5-1.4) mg/dL Estim Creat Clear Calc Estimated GFR Random Glucose (60-115) mg/dL Lactic Acid (0.5-2.0) mmol/L Lactic Acid F/U @ 2Hr 3.9 H* (0.5-2.0) mmol/L Calcium (8.4-10.2) mg/dL Magnesium (1.6-2.6) mg/dL Total Bilirubin (0.0-1.0) mg/dL Direct Bilirubin (0.0-0.5) mg/dL AST (5-31) U/L ALT (0-31) U/L Alkaline Phosphatase (39-117) U/L Ammonia (13-55) umol/L Total Protein (6.5-8.0) g/dL Albumin (3.5-5.0) g/dL Lipase (8-78) U/L C. difficile Tox B Gene NEGATIVE (Negative) Influenza Type A (PCR) (Negative) Influenza Type B (PCR) (Negative) RSV RNA Qual (PCR) (Negative) SARS-CoV-2 RNA (RT-PCR) (Negative) Independent Historian Clinical information obtained from an independent historian. History obtained from or confirmed by: Other ( patient's daughter) External Record Review External record reviewed: Outpatient record ( hematology/oncology) Medications Administered Discontinued Medications Generic Name Dose Route Start Last Admin Trade Name Freq PRN Reason Stop Dose Admin Hydromorphone HCl 1 mg 05/22/24 23:23 05/22/24 23:44 Hydromorphone Hcl 1 Mg/Ml Syringe IVPUSH 05/22/24 23:24 1 mg ONCE ONE Administration Protocol Sodium Chloride 1,932.3 mls @ 1,932.3 mls/hr 05/22/24 22:49 05/23/24 01:09 Ns 30 ml/kg infuse over 1 hr (1932.3 ml) 05/22/24 23:48 Infused IV Infusion .Q1H STA Cefepime HCl 2 gm in 50 mls @ 100 mls/hr 05/22/24 22:49 05/22/24 23:49 Maxipime IV 05/22/24 23:18 Infused ONCE ONE Infusion Iohexol 85 ml 05/23/24 00:01 05/23/24 00:02 Iohexol 350 Mg/Ml 100 Ml Infus..Btl IV 05/23/24 00:02 85 ml ONCE ONE Administration Critical Care Time Critical Care Time Critical Care Time: Yes Total Critical Care Time: 90 Attestation: I have personally provided critical care time. Time includes review of lab data, radiology results, discussion with consultants, and monitoring for potential decompensation. Intervention performed as documented. Discharge Plan Discharge Clinical Impression: Abdominal ascites, Left leg DVT, Diarrhea, Acute dehydration Patient Disposition: Admitted As Inpatient Prescriptions: No Action levothyroxine 125 mcg tablet 125 mcg PO QAM Qty: 90 1RF loperamide [Imodium A-D] 2 mg Capsule 2 mg PO Q4H PRN (Reason: Diarrhea) Qty: 60 2RF Rx Instructions: administer after each loose stool until symptoms controlled; do not exceed 8 mg per 24 hrs ondansetron 8 mg Tablet,Disintegrating 8 mg PO Q8H PRN (Reason: Nausea And Vomiting) Qty: 60 1RF prochlorperazine maleate [Compazine] 10 mg Tablet 10 mg PO Q8H PRN (Reason: Nausea) Qty: 30 2RF Phazyme 250 mg Capsule 250 mg PO BID Qty: 30 2RF Rx Instructions: administer after meals [id number] 3.5-0.2-69-16.5 % Paste 1 appl TOPICAL TID Qty: 45 3RF hydroxyzine HCl 25 mg Tablet 25 mg PO TID Qty: 30 2RF Calamine Medicated 1-8 % Lotion 1 appl TOPICAL QID Qty: 45 2RF prednisone 20 mg Tablet 60 mg PO DAILY Qty: 90 3RF Rx Instructions: Take 60 mg p.o. daily for 1 week. Will repeat labs in a week, then decide. fentanyl 50 mcg/hr Patch 72 Hour 1 patch TRANSDERMAL Q72H Qty: 6 0RF Rx Instructions: Partial Fill upon patient request. omeprazole 20 mg Tablet,Disintegrat, Delay Rel 20 mg PO BID Qty: 60 1RF fentanyl 25 mcg/hr Patch 72 Hour 1 patch TRANSDERMAL Q72H Qty: 10 0RF Rx Instructions: Partial Fill upon patient request. hydromorphone [Dilaudid] 8 mg Tablet 8 mg PO Q6H Qty: 60 0RF Rx Instructions: Partial Fill upon patient request. docusate sodium [Colace] 100 mg capsule 100 mg PO BID Qty: 60 2RF oxycodone 10 mg tablet PO Print Language: Cambodian
[2024-05-22 23:20] LABS: Alanine Aminotransferase 27 U/L (0-31); Albumin Level 2.2 g/dL (3.5-5.0); Alkaline Phosphatase 397 U/L (39-117); Aspartate Amino Transferase 207 U/L (5-31); Bilirubin Direct 6.5 mg/dL (0.0-0.5); Bilirubin Total 8.5 mg/dL (0.0-1.0); Total Protein 5.7 g/dL (6.5-8.0)
[2024-05-22 23:31] VITALS: BP 108/75; PULSE 99; RESP 22; TEMP 37.2; O2SAT 93
[2024-05-22 23:44] LABS: Ammonia 42 umol/L (13-55)
[2024-05-22] MEDS: HYDROmorphone HCl 1 MG/ML SYRINGE IVPUSH (23:44)
[2024-05-23] VITALS (8 sets, daily range): BP systolic 96–120; BP diastolic 61–81; PULSE 99–109; RESP 12–16; TEMP 36.2–36.9; O2SAT 93–95
[2024-05-23] MEDS: iohexoL 350 MG/ML 100 ML INFUS..BTL 85 ML IV (00:02)
[2024-05-23 00:12] LABS: Influenza A PCR NEGATIVE (Negative); Influenza B PCR NEGATIVE (Negative); Resp Syncy Virus RNA Qual PCR NEGATIVE (Negative); SARS COV2 PCR INHOUSE NEGATIVE (Negative)
[2024-05-23 00:23] LABS: Reflex Lactate? Lactic Acid Added
[2024-05-23 00:44] LABS: CDiff Gene PCR NEGATIVE (Negative)
[2024-05-23 01:22] LABS: ~Lactic Acid-LAB USE ONLY 3.9 mmol/L (0.5-2.0)
[2024-05-23 02:57] LABS: Reflex Lactate? 2 Y
[2024-05-23] MEDS: Apixaban 5 MG TABLET 10 MG PO (02:58)
[2024-05-23 03:24] LABS: Lactate Dehydrogenase 798 U/L (122-220)
[2024-05-23 03:24] LABS: MN% 34.2 %; PMN% 65.8 %; WBC Peritoneal Fluid 0.378 X10*3/uL
[2024-05-23 03:26] LABS: RBC Peritoneal Fluid < 0.002 X10*6/uL
[2024-05-23 03:53] LABS: BF Shift QC OK YES; Lymphocyte Peritoneal Fl 13 %; Monocytes Peritoneal Fl 11 %; Neutrophils Peritoneal Fluid 56 %; Other Peritioneal Fl 20 %
[2024-05-23 04:03] LABS: Cancel Lactic Acid Canceled
--- NOTE | 2024-05-23 04:07 | PM.IMHP ---
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 She also mentioned having events of vomiting about a week ago. She did report intermittent watery nonbloody diarrhea and noted yellowish tint to her sclerae and skin. She did complain of shortness on breath with exertion. Denied cough, chest pain, headache or palpitations. She noted that her urine is dark. According to patient's daughter who was at bedside patient was hospitalized at [facility] last Sunday with diagnosis of pneumonia. She was discharged the next day and was prescribed to take a course of doxycycline and cefdinir. The patient did not report any pain with urinary source, fever or chills. Her oncologist is Dr. Mitchell who evaluate her last month -to consider supportive care and hospice. In the ED, she was found to normal vital signs. Blood workup was remarkable for leukocytosis 24.8 hemoglobin of 9.9 and platelet 115. There is lactic acidosis that is trending down 4.4 -->3.9. LFTs are trending up specifically bilirubin 3.5 --> 8.5 (direct 6.5), alk-phos and AST. LDH is also elevated. Ammonia is normal. C diff is negative. Viral testing for influenza, RSV and COVID is negative. Abdominal pelvis CT scan showed interval increase in size of large rectal mass and significant worsening of metastatic disease to liver, worsening ascites and bibasilar opacity. Left lower extremity venous ultrasound showed left peroneal vein DVT and popliteal cyst. Paracentesis was performed by ED physician. About 1 L of cloudy yellow fluid was removed. ED tx: NS 1932 ml bolus, cefepime 2 g IV, Dilaudid 1 g IV, Eliquis 10 mg [facility] Medical History 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 History of Helicobacter pylori infection Polyarthralgia Obesity (BMI 30.0-34.9) Left ankle sprain Vitamin D deficiency Perimenopause Iron deficiency anemia Dyslipidemia Acquired hypothyroidism Family History Maternal Uncle Mental health disorder Surgical History History of liver biopsy History of esophagogastroduodenoscopy (EGD) H/O colonoscopy Social History Household Members: Family and Children Housing: House Alcohol intake: never Patient Tobacco Use Status: Never used Tobacco Smoked in Last 30 Days: No e-Cigarette/Vaping Use: Never Used Use of substances other than those prescribed or required for medical reasons: No Advance Directives: Yes Advance Directives Information Provided: No Advance Directives on File: No Patient : No service: No Current occupational status: employed Cognitive needs: No Hearing needs: No Vision needs: Yes Meds Allergies Allergy/AdvReac Type Severity Reaction Status Date / Time No Known Allergies Allergy Mild NOT Verified 05/22/24 19:02 APPLICABLE Active Medications: Current Medications Acetaminophen (Acetaminophen 325 Mg Tablet) 650 mg PO Q6H PRN PRN Reason: Pain, Mild 1-3,fever,headache Calcium Carbonate (Calcium Carbonate 750 Mg Tab.Chew) 750 mg PO Q4H PRN PRN Reason: Heartburn Fentanyl (Fentanyl 50 Mcg Patch.Td72) 50 mcg TRANSDERMA Q72H DANNY Furosemide (Furosemide 20 Mg/2 Ml Vial) 20 mg IVPUSH DAILY DANNY; Protocol Hydromorphone HCl (Hydromorphone Hcl 0.5 Mg/0.5 Ml Syringe) 0.5 mg IVPUSH Q3H PRN; Protocol PRN Reason: Pain, Severe (Pain Scale 7-10) Levothyroxine Sodium (Levothyroxine Sodium 125 Mcg Tablet) 125 mcg PO ONCE ONE Stop: 05/23/24 06:01 Magnesium Hydroxide (Milk Of Magnesia 30 Ml Oral.Susp) 30 ml PO DAILY PRN PRN Reason: Constipation Melatonin (Melatonin 3 Mg Tablet) 6 mg PO BEDTIME PRN PRN Reason: Insomnia Sodium Chloride (0.9 % Sodium Chloride Flush 3 Ml Syringe) 3 ml IVFLUSH QSHIFT [facility] Home Medications ?Medication ?Instructions ?Recorded ?Confirmed ?Last Taken ?Type oxycodone 10 mg tablet mg PO 02/22/24 Unknown History Physical Exam Vital Signs and Narrative: Vital Signs: Last Vital Signs Temp 98.0 F 05/23/24 02:56 Pulse 109 H 05/23/24 02:56 Resp 15 05/23/24 02:56 BP 96/69 05/23/24 02:56 Pulse Ox 93 05/23/24 02:56 O2 Del Method Room Air 05/22/24 23:31 BMI result Body Mass Index 26.0 Results Labs 05/22/24 19:23 05/22/24 19:23 Labs: Laboratory Results - last 24 hr 05/22/24 05/22/24 05/22/24 19:23 22:19 23:30 MCV 86.9 MCH 30.1 MCHC 34.6 RDW 27.8 H Plt Count 115 L D MPV 9.5 Immature Gran % (Auto) 2.6 H Neut % (Auto) 87.6 H Lymph % (Auto) 3.8 L [place] % (Auto) 5.5 Eos % (Auto) 0.1 Baso % (Auto) 0.4 Lymph # (Auto) 0.9 L [place] # (Auto) 1.4 H Eos # (Auto) 0.0 Baso # (Auto) 0.1 Abs Immat Gran (auto) 0.64 H Absolute Neuts (auto) 21.7 H Absolute Nucleated RBC 0.020 H Nucleated RBC % (auto) 0.1 Smear Tech's Comments VERIFIED Anion Gap 13 Estim Creat Clear Calc 127.2 Estimated GFR > 60 Random Glucose 93 Lactic Acid 4.4 H* Lactic Acid F/U @ 2Hr Calcium 9.2 D Magnesium 1.8 Total Bilirubin 8.5 H Direct Bilirubin 6.5 H AST 207 H ALT 27 Alkaline Phosphatase 397 H Ammonia 42 Lactate Dehydrogenase 798 H Total Protein 5.7 L Albumin 2.2 L Lipase 12 Peritoneal WBC Peritoneal RBC Periton Neutrophils Periton Lymphocytes Peritoneal Monocytes Peritoneal Other Cells C. difficile Tox B Gene Influenza Type A (PCR) NEGATIVE Influenza Type B (PCR) NEGATIVE RSV RNA Qual (PCR) NEGATIVE SARS-CoV-2 RNA (RT-PCR) NEGATIVE 05/22/24 05/23/24 05/23/24 23:50 00:54 03:14 MCV MCH MCHC RDW Plt Count MPV Immature Gran % (Auto) Neut % (Auto) Lymph % (Auto) [place] % (Auto) Eos % (Auto) Baso % (Auto) Lymph # (Auto) [place] # (Auto) Eos # (Auto) Baso # (Auto) Abs Immat Gran (auto) Absolute Neuts (auto) Absolute Nucleated RBC Nucleated RBC % (auto) Smear Tech's Comments Anion Gap Estim Creat Clear Calc Estimated GFR Random Glucose Lactic Acid Lactic Acid F/U @ 2Hr 3.9 H* Calcium Magnesium Total Bilirubin Direct Bilirubin AST ALT Alkaline Phosphatase Ammonia Lactate Dehydrogenase Total Protein Albumin Lipase Peritoneal WBC 0.378 Peritoneal RBC < 0.002 Periton Neutrophils 56 Periton Lymphocytes 13 Peritoneal Monocytes 11 Peritoneal Other Cells 20 C. difficile Tox B Gene NEGATIVE Influenza Type A (PCR) Influenza Type B (PCR) RSV RNA Qual (PCR) SARS-CoV-2 RNA (RT-PCR) Assessment and Plan (1) Abdominal pain: Qualifiers: Abdominal location: generalized Qualified Code(s): R10.84 - Generalized abdominal pain Status: Acute (2) Left leg DVT: Qualifiers: Affected thrombotic vein of extremity: peroneal Chronicity: acute Qualified Code(s): I82.452 - Acute embolism and thrombosis of left peroneal vein Status: Acute (3) Abdominal ascites: Qualifiers: Ascites type: malignant Qualified Code(s): R18.0 - Malignant ascites Status: Acute (4) 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: Status: Acute Plan Tomeka Hand is a 54 y/o woman with PMHx significant for worsening 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 Rule out SBP. Admit to hospitalist service. Status post paracentesis -peritoneal fluid analysis pending. Continue empiric IV antibiotic therapy with ceftriaxone. Continue pain control with fentanyl patch and Dilaudid IV as needed. Start treatment with Lasix. Sepsis criteria + lactic acidosis (4.4 --> 3.9). Pneumonia? SBP? Liver failure? Check CXR and urinalysis. We will avoid IV fluids due to fluid retention. Continue empiric IV antibiotic therapy with ceftriaxone and doxycycline. Blood and peritoneal fluid cultures obtained -will follow results. Continue to monitor lactic acid. Diarrhea. Likely due to poor absorption: Bowels edema/ascites. C diff is negative. Imodium as needed. Recent diagnosis of pneumonia at [facility]. Check CXR. Start treatment with ceftriaxone and doxycycline. Left peroneal DVT. Continue Eliquis. Worsening LFTs and jaundice, likely liver failure secondary to metastatic disease. Check INR. Continue to monitor LFTs. GI consult. Chronic anemia. Continue to monitor. Hypothyroidism. On levothyroxine. Check TSH. DVT prophylaxis: Eliquis GI prophylaxis: Protonix IV Code status: Full Patient will need hospitalization for at least 2 midnights for pain control for abdominal pain and empiric IV antibiotic therapy for possible active infection. She will also need evaluation by subspecialties. Quality Stroke Does the patient have a stroke diagnosis?: No VTE Prior VTE?: No VTE Risk Level:: Medical - moderate - high VTE Device Contraindication: Treatment Not Indicated VTE Drug Contraindication: N/A - Med Ordered
[2024-05-23 04:55] LABS: INTERNATIONAL NORM RATIO 2.2 (0.9-1.1); Prothrombin Time 25.7 SEC (10.9-12.4)
[2024-05-23] MEDS: Doxycycline Hyclate 100 MG in 0.9 % Sodium Chloride 250 ML 166.67 MG IV (04:56)
[2024-05-23] MEDS: Furosemide 20 MG/2 ML VIAL IVPUSH (04:56)
[2024-05-23 05:00] LABS: Basophils Absolute Auto 0.1 X10*3/uL (0.0-0.2); Basophils Percent Auto 0.6 % (0-2); Eosinophils Percent Auto 0.1 % (0-4); Hematocrit 31.1 % (37.0-47.0); Hemoglobin 10.7 g/dl (12.0-16.0); Imm Gran Abs Auto 0.56 X10*3/uL (0.00-0.03); Imm Gran Pct Auto 2.4 % (0.0-0.4); Lymphocytes Absolute Auto 0.8 X10*3/uL (1.2-4.9); Lymphocytes Percent Auto 3.4 % (20-40); MANUAL DIFF FLAG SCAN; Mean Corpuscular HGB Conc 34.4 g/dl (31.0-35.0); Mean Corpuscular Volume 87.1 fL (80.0-98.0); Monocytes Absolute Auto 1.1 X10*3/uL (0.1-1.2); Monocytes Percent Auto 4.7 % (2-11); Neutrophils Absolute Auto 20.5 x10*3/uL (2.0-8.3); Neutrophils Percent Auto 88.8 % (45-73); PLT CLUMP 1; Red Blood Count 3.57 X10*6/uL (4.20-5.50); Red Cell Distribution Width 28.4 % (11.0-16.0); SCAN SMEAR FLAG 1
[2024-05-23 05:11] LABS: Thyroid Stimulating Hormone 3.21 uIU/mL (0.32-4.0)
[2024-05-23 05:12] LABS: Lactic Acid 3.7 mmol/L (0.5-2.0)
[2024-05-23 05:15] LABS: Alanine Aminotransferase 27 U/L (0-31); Albumin Level 2.2 g/dL (3.5-5.0); Anion Gap 16 (12-20); Aspartate Amino Transferase 209 U/L (5-31); Bilirubin Total 8.8 mg/dL (0.0-1.0); Blood Urea Nitrogen 16 mg/dL (9-16); Calcium 8.7 mg/dL (8.4-10.2); Carbon Dioxide 20 mmol/L (22-29); Chloride 101 mmol/L (96-108); Creatinine Clr Calc Pharmacy 114.2; Estimated Glomerular Filt Rate > 60; Glucose Random 78 mg/dL (60-115); Magnesium 1.8 mg/dL (1.6-2.6); Potassium 3.7 mmol/L (3.3-5.1); Sodium 133 mmol/L (135-145); Total Protein 5.8 g/dL (6.5-8.0)
[2024-05-23 05:17] LABS: Alkaline Phosphatase 392 U/L (39-117); Platelet Count 99 X10*3/uL (160-400)
[2024-05-23 05:18] LABS: SLIDE REVIEW VERIFIED
[2024-05-23 06:47] LABS: Reflex Lactate? Lactic Acid Added
[2024-05-23] MEDS: Pantoprazole Sodium 40 MG/10 ML VIAL IVPUSH (06:49)
--- NOTE | 2024-05-23 07:25 | PM.GICN ---
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 Pt reported intermittent watery non-bloody diarrhea and noted yellowish tint to her sclerae and skin, dark urine and shortness on breath with exertion. Pt denied cough, chest pain, headache or palpitations. According to patient's daughter, pt was hospitalized at [facility] last Sunday with diagnosis of pneumonia and discharged the next day. She was prescribed to take a course of doxycycline and cefdinir. The patient did not report any pain with urinary source, fever or chills. Pt is followed by Dr Mitchell in Oncology who evaluate her last month -to consider supportive care and hospice. In the ED, she was found to normal vital signs. Blood workup was remarkable for leukocytosis 24.8 hemoglobin of 9.9 and platelet 115. There is lactic acidosis that is trending down 4.4 -->3.9. LFTs are trending up specifically bilirubin 3.5 --> 8.5 (direct 6.5), alk-phos and AST. LDH is also elevated. Ammonia is normal. C diff is negative. Viral testing for influenza, RSV and COVID is negative. Abdominal pelvis CT scan showed interval increase in size of large rectal mass and significant worsening of metastatic disease to liver, worsening ascites and bibasilar opacity. Left lower extremity venous ultrasound showed left peroneal vein DVT and popliteal cyst. Paracentesis was performed by ED physician. About 1 L of cloudy yellow fluid was removed. ED tx: NS 1932 ml bolus, cefepime 2 g IV, Dilaudid 1 g IV, Eliquis 10 mg PO 05/23/[address] SCAN SHOWED: IMPRESSION: 1. Interval increase in size of large rectal mass and significant worsening of metastatic disease to liver as described. 2. Interval worsening of abdominal and pelvic ascites. 3. Stranding/edema in mesenteric, intra-abdominal and intrapelvic fat and subcutaneous fat. 4. Basilar opacity may represent atelectasis but pneumonia not excluded. Left basilar atelectasis. [facility] Past Medical History Medical History 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 History of Helicobacter pylori infection Polyarthralgia Obesity (BMI 30.0-34.9) Left ankle sprain Vitamin D deficiency Perimenopause Iron deficiency anemia Dyslipidemia Acquired hypothyroidism Family History Family History Maternal Uncle Mental health disorder Surgical History Surgical History History of liver biopsy History of esophagogastroduodenoscopy (EGD) H/O colonoscopy Social History Social History Household Members: Family and Children Housing: House Alcohol intake: never Patient Tobacco Use Status: Never used Tobacco Smoked in Last 30 Days: No e-Cigarette/Vaping Use: Never Used Use of substances other than those prescribed or required for medical reasons: No Advance Directives: Yes Advance Directives Information Provided: No Advance Directives on File: No Nutrition Risks: No Nutritional Risk Patient : No service: No Current occupational status: employed Cognitive needs: No Hearing needs: No Vision needs: Yes Meds Allergies Allergy/AdvReac Type Severity Reaction Status Date / Time No Known Allergies Allergy Mild NOT Verified 05/22/24 19:02 APPLICABLE Active Medications: Current Medications Acetaminophen (Acetaminophen 325 Mg Tablet) 650 mg PO Q6H PRN PRN Reason: Pain, Mild 1-3,fever,headache Apixaban (Apixaban 5 Mg Tablet) 10 mg PO BID DANNY Stop: 05/29/24 21:01 Calcium Carbonate (Calcium Carbonate 750 Mg Tab.Chew) 750 mg PO Q4H PRN PRN Reason: Heartburn Ceftriaxone Sodium (Ceftriaxone Sodium 1 Gm Vial) 1 gm IVPUSH Q24H DANNY Fentanyl (Fentanyl 50 Mcg Patch.Td72) 50 mcg TRANSDERMA Q72H DANNY Furosemide (Furosemide 20 Mg/2 Ml Vial) 20 mg IVPUSH DAILY DANNY; Protocol Last Admin: 05/23/24 04:56 Dose: 20 mg Hydromorphone HCl (Hydromorphone Hcl 0.5 Mg/0.5 Ml Syringe) 0.5 mg IVPUSH Q3H PRN; Protocol PRN Reason: Pain, Severe (Pain Scale 7-10) Doxycycline Hyclate 100 mg/ (Sodium Chloride) 250 mls @ 166.67 mls/hr IV Q12H [facility] Last Infusion: 05/23/24 06:49 Dose: Infused Loperamide HCl (Loperamide Hcl 2 Mg Capsule) 2 mg PO Q4H PRN PRN Reason: Diarrhea Magnesium Hydroxide (Milk Of Magnesia 30 Ml Oral.Susp) 30 ml PO DAILY PRN PRN Reason: Constipation Melatonin (Melatonin 3 Mg Tablet) 6 mg PO BEDTIME PRN PRN Reason: Insomnia Pantoprazole Sodium (Pantoprazole Sodium 40 Mg/10 Ml Vial) 40 mg IVPUSH DAILY@0630 [facility] Last Admin: 05/23/24 06:49 Dose: 40 mg Sodium Chloride (0.9 % Sodium Chloride Flush 3 Ml Syringe) 3 ml IVFLUSH QSHIFT [facility] Home Medications ?Medication ?Instructions ?Recorded ?Confirmed ?Last Taken ?Type oxycodone 10 mg tablet mg PO 02/22/24 Unknown History Physical Exam Vital Signs: Vital Signs: Last Vital Signs Temp 98.4 F 05/23/24 06:16 Pulse 104 H 05/23/24 06:16 Resp 15 05/23/24 06:16 BP 101/67 05/23/24 06:16 Pulse Ox 94 05/23/24 06:16 O2 Del Method Room Air 05/23/24 06:16 BMI result Body Mass Index 26.0 Results Labs 05/23/24 04:43 05/23/24 04:43 Labs: Short CBC 05/22/24 05/23/24 Range/Units 19:23 04:43 WBC 24.8 H 23.0 H (4.8-10.8) X10*3/uL Hgb 9.9 L 10.7 L (12.0-16.0) g/dl Hct 28.6 L 31.1 L (37.0-47.0) % Plt Count 115 L D 99 L (160-400) X10*3/uL BMP 05/22/24 05/23/24 19:23 04:43 Sodium 132 L 133 L Potassium 3.4 3.7 Chloride 97 101 Carbon Dioxide 25 20 L BUN 16 16 Creatinine 0.44 L 0.49 L Calcium 9.2 D 8.7 Liver Function 05/22/24 05/23/24 Range/Units 19:23 04:43 Total Bilirubin 8.5 H 8.8 H (0.0-1.0) mg/dL Direct Bilirubin 6.5 H (0.0-0.5) mg/dL AST 207 H 209 H (5-31) U/L ALT 27 27 (0-31) U/L Alkaline Phosphatase 397 H 392 H (39-117) U/L Albumin 2.2 L 2.2 L (3.5-5.0) g/dL Procedures Date of Service Date of Service: 05/23/24
[2024-05-23 07:59] LABS: ~Lactic Acid-LAB USE ONLY 3.8 mmol/L (0.5-2.0)
--- NOTE | 2024-05-23 08:00 | PC.NURSE ---
Critical lactic = 3.8, MD notified.
--- NOTE | 2024-05-23 08:03 | PC.NURSE ---
Awaiting Levothyroxine per pharmacy at this time. Unavailable in Pyxis.
--- NOTE | 2024-05-23 08:26 | PM.HEMONCCN ---
Subjective - Subjective Chief complaint: Abdominal pain Patient: known to practice within the last 3 years Consult date: 05/23/24 Primary Care Provider: Angie Carlin MD Medical Summary: Diagnosis-metastatic anal squamous cell carcinoma 09/2023 Rectal bleeding since December 2022 and some weight loss who has now been diagnosed with stricture/ulcerated mass in the anorectal region on colonoscopy. She was having bleeding as well as change in stool caliber for a few months, unfortunately she lost her health insurance and could not go for further testing last year. No history of smoking or alcohol use. No risk factors for hepatitis or HIV. She has not had a previous screening colonoscopy. She underwent colonoscopy on 08/16/2023 which revealed stricture at the anorectum with an ulcerated lesion in the anal canal with surrounding induration and irregular tissue margins. CT abdomen/pelvis with contrast performed 08/29/2023 revealed large number of hepatic lesions, largest in the right hepatic lobe measuring 3.1 x 2.5 cm. Another lesion in the hepatic tail measuring 3.7 x 3 cm, in the left lobe dominant lesion measuring 4.3 x 3.5 cm. There was marked wall thickening of the anorectal junction, perirectal soft tissue density extending into right ischioanal fossa. Florencia enlarged perirectal and perianal lymph nodes largest measuring 0.4 x 1.4 and 2.1 x 1.6 cm. The fat plane between posterior vaginal wall and anterior anorectal junction is obscured. No obstruction or free intraperitoneal air or abscess seen. Enlarged right inguinal lymph nodes and right internal iliac lymph nodes. CT chest with contrast performed 09/21/2023 revealed tiny nonspecific right lung nodules. No thoracic lymphadenopathy. No acute or aggressive osseous findings. PET scan was denied by insurance carrier. HPI - Consult Narrative Reason for consult: Metastatic anal cancer, liver failure Narrative: Tomeka Hand is a 54 year old woman, well known to Oncology Service with diagnosis of metastatic anal squamous cell carcinoma who is currently admitted for abdominal pain and acute liver failure. She has been on chemo immunotherapy for several months, unfortunately she has been progressing predominantly in the liver. She has developed severe jaundice and has now developed ascites as well. She was recently admitted at [facility] for pneumonia and was treated with antibiotics. Other than abdominal pain, she denies any other complaints such as fever or chills. She has a chronic dry cough. After drainage of ascites yesterday in the ER, her pain has improved. She denies nausea or emesis. Patient and daughter understand that she has progressive cancer and are now willing for hospice care. Review of Systems - Constitutional Reports as per HPI, Reports lack of energy, Reports malaise, Reports poor appetite PMFSH Medical History: Medical History (Last Reviewed 02/22/24 @ 11:00 by GIOVANNA Amador) Acquired hypothyroidism Dyslipidemia History of Helicobacter pylori infection Iron deficiency anemia Left ankle sprain 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 Obesity (BMI 30.0-34.9) Perimenopause Polyarthralgia Vitamin D deficiency Family History: Family History (Last Reviewed 02/22/24 @ 11:00 by GIOVANNA Amaodr) Maternal Uncle Mental health disorder Surgical History: Surgical History (Last Reviewed 02/22/24 @ 11:00 by GIOVANNA Amador) H/O colonoscopy History of esophagogastroduodenoscopy (EGD) History of liver biopsy Social History: Social History (Last Reviewed 02/22/24 @ 11:00 by GIOVANNA Amador) Living Situation History: Household Members: Family Household Members: Children Housing: House Alcohol History Details: 1. How often do you have a drink containing alcohol?: a. Never AUDIT-C Alcohol total score: 0 Tobacco History: Patient Tobacco Use Status: Never used Tobacco Smoked in Last 30 Days: No e-Cigarette/Vaping Use: Never Used Substance Use History: Use of substances other than those prescribed or required for medical reasons: No Advance Directives: Advance Directives: Yes Advance Directives Information Provided: No Advance Directives on File: No Nutrition Assessment: Nutrition Risks: No Nutritional Risk Patient : No Occupation Assessmet: service: No Current occupational status: employed Home Medications and Allergies Current Medications: Current Medications Acetaminophen (Acetaminophen 325 Mg Tablet) 650 mg PO Q6H PRN PRN Reason: Pain, Mild 1-3,fever,headache Apixaban (Apixaban 5 Mg Tablet) 10 mg PO BID [facility] Stop: 05/29/24 21:01 Calcium Carbonate (Calcium Carbonate 750 Mg Tab.Chew) 750 mg PO Q4H PRN PRN Reason: Heartburn Ceftriaxone Sodium (Ceftriaxone Sodium 1 Gm Vial) 1 gm IVPUSH Q24H [facility] Fentanyl (Fentanyl 50 Mcg Patch.Td72) 50 mcg TRANSDERMA Q72H [facility] Furosemide (Furosemide 20 Mg/2 Ml Vial) 20 mg IVPUSH DAILY [facility]; Protocol Last Admin: 05/23/24 04:56 Dose: 20 mg Hydromorphone HCl (Hydromorphone Hcl 0.5 Mg/0.5 Ml Syringe) 0.5 mg IVPUSH Q3H PRN; Protocol PRN Reason: Pain, Severe (Pain Scale 7-10) Doxycycline Hyclate 100 mg/ (Sodium Chloride) 250 mls @ 166.67 mls/hr IV Q12H [facility] Last Infusion: 05/23/24 06:49 Dose: Infused Loperamide HCl (Loperamide Hcl 2 Mg Capsule) 2 mg PO Q4H PRN PRN Reason: Diarrhea Magnesium Hydroxide (Milk Of Magnesia 30 Ml Oral.Susp) 30 ml PO DAILY PRN PRN Reason: Constipation Melatonin (Melatonin 3 Mg Tablet) 6 mg PO BEDTIME PRN PRN Reason: Insomnia Pantoprazole Sodium (Pantoprazole Sodium 40 Mg/10 Ml Vial) 40 mg IVPUSH DAILY@0630 [facility] Last Admin: 05/23/24 06:49 Dose: 40 mg Sodium Chloride (0.9 % Sodium Chloride Flush 3 Ml Syringe) 3 ml IVFLUSH QSHIFT [facility] Last Admin: 05/23/24 07:44 Dose: Not Given Home Medications ?Medication ?Instructions ?Recorded ?Confirmed ?Type oxycodone 10 mg tablet mg PO 02/22/24 History Allergies Allergy/AdvReac Type Severity Reaction Status Date / Time No Known Allergies Allergy Mild NOT Verified 05/22/24 19:02 APPLICABLE Physical Exam Vital signs: Vital Signs Temp 98.4 F 05/23/24 06:16 Pulse 104 H 05/23/24 06:16 Resp 15 05/23/24 06:16 BP 101/67 05/23/24 06:16 Pulse Ox 94 05/23/24 06:16 O2 Del Method Room Air 05/23/24 06:16 Intake & Output 05/22/24 05/23/24 05/23/24 18:59 06:59 18:59 Intake Total 2232.3 / 2232.3 Output Total 500 / 500 Balance 1732.3 / 1732.3 Urine Output (Average ml/kg/hr) 0.65 Intake: Intake, IV Amount 2232.3 / 2232.3 0.9 % Sodium Chloride 1,932.3 1932.3 / 1932.3 ml @ 1932.3 mls/hr IV .Q1H [facility] Rx#:[id number] Doxycycline Hyclate 100 mg In 0 250 / 250 .9 % Sodium Chloride 250 ml @ 166.67 mls/hr IV Q12H [facility] Rx#: [id number] cefEPime HCl/D5W 2 gm In 50 ml 50 / 50 @ 100 mls/hr IV ONCE ONE Rx#: [id number] Output: Output, Urine Amount (Catheter) 500 / 500 Female External 500 / 500 Other: Number of Bowel Movements 4 Weight 64.41 kg Weight 64.41 kg - Constitutional Present: mild distress, chronically ill appearing - Routine HEENT Exam Eye: Present: scleral icterus - Routine Neck Exam Present: supple - Routine Respiratory Exam Present: CTAB. Absent: accessory muscle use - Routine Cardiovascular Exam Cardiovascular: Present: S1, S2 - Routine Abdominal Exam Present: distended, mass, organomegaly - Routine Extremities Exam Present: pulses intact - Routine Skin Exam Present: jaundice - Routine Neurological Exam Present: alert, oriented X3 Hem/Onc Consult Result - Labs CBC & Chem 7: 05/23/24 04:43 05/23/24 04:43 Labs: Short CBC 05/22/24 05/23/24 Range/Units 19:23 04:43 WBC 24.8 H 23.0 H (4.8-10.8) X10*3/uL Hgb 9.9 L 10.7 L (12.0-16.0) g/dl Hct 28.6 L 31.1 L (37.0-47.0) % Plt Count 115 L D 99 L (160-400) X10*3/uL BMP 05/22/24 05/23/24 19:23 04:43 Sodium 132 L 133 L Potassium 3.4 3.7 Chloride 97 101 Carbon Dioxide 25 20 L BUN 16 16 Creatinine 0.44 L 0.49 L Calcium 9.2 D 8.7 Liver Function 05/22/24 05/23/24 Range/Units 19:23 04:43 Total Bilirubin 8.5 H 8.8 H (0.0-1.0) mg/dL Direct Bilirubin 6.5 H (0.0-0.5) mg/dL AST 207 H 209 H (5-31) U/L ALT 27 27 (0-31) U/L Alkaline Phosphatase 397 H 392 H (39-117) U/L Albumin 2.2 L 2.2 L (3.5-5.0) g/dL Assessment and Plan Patient Active problem list reviewed?: Yes (1) 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 Status: Chronic Assessment and plan: 1. This is a 54-year-old woman diagnosed with metastatic anal squamous cell carcinoma in September 2023. She presented with multiple liver metastasis. On 09/11/2023 she underwent core biopsy of right lobe liver mass which revealed poorly differentiated squamous cell carcinoma. Immuno histochemistry revealed positivity for P40, P63 and CK7 (patchy weak). Non immunoreactive with P16. 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 TMB 6.8 M/MB, 75th percentile, MSI stable. PD-L1 CPS 97%, CPS 97. Soft tissue, anal mass excision performed 09/14/2023 showed invasive squamous cell carcinoma, moderate to poorly differentiated involving anorectal mucosa. By IHC the tumor cells are nonreactive with P16. She started systemic therapy with carboplatin AUC 5 with weekly Taxol from 10/03/2023. She developed progressive disease and therefore switched to FOLFOX regimen from 11/2023 until February 2024. She was started on pembrolizumab 200 mg IV q. 3 weeks from March in the 3rd line setting because of disease progression. Unfortunately, she continues to progress with now liver failure. Bilirubin is above 8 and she has developed ascites. She has had progression in her abdominal pain in spite of narcotic pain medications. She reports improvement after therapeutic paracentesis. She is now willing for hospice care. She understands that no further treatment is possible and is imminent. She has had discussion with her family and daughter and they are ready for hospice care. Hospice referral has been placed. I thank you for the consultation. - Time Spent With Patient Time Spent with Patient (in minutes): 2 Additional Coding: - Additional E/M codes Complex E/M visit Add On: CPT G2211
[2024-05-23] MEDS: Levothyroxine Sodium 125 MCG TABLET PO (08:28)
[2024-05-23 08:29] LABS: Cancel Lactic Acid Canceled
--- NOTE | 2024-05-23 09:20 | MHC.CM.ED ---
Patient currently admitted in ER overflow. Received notification from [facility] that their social psychologist will complete an informational hospice meeting today around 1030am at Dr Mitchell's request. Continue to monitor for d/c needs.
[2024-05-23] MEDS: Loperamide HCl 2 MG CAPSULE PO (09:58)
--- NOTE | 2024-05-23 10:10 | PHA.MEDREC ---
Addendum entered by Gini Horn RPh 05/23/24 10:33: Reviewed by [facility] Original Note: Pharmacy Consult ? Medication Reconciliation Pharmacy has completed the medication reconciliation. Spoke to patient and daughter at bedside to confirm med list. Daughter was able to name all of patient medications. Daughter states patient is no longer Fentanyl 50 mg ( now on 25 mg) Hydroxyzine 25 mg, Oxycodone 10 mg ( now on Dilaudid 8 mg) and Simethicone 250 mg. Daughter confirmed patient has a Fentanyl patch on now, patch was replaced yesterday.
--- NOTE | 2024-05-23 10:22 | PM.EVENT ---
Event Note Date of Service: 05/23/24 Event Note: Seen and evaluated this morning pain under fair control Peritoneal fluid analysis likely representing Malignancy related peritonitis on Ceftriaxone empirically follow LDH, Protein Hospice team evaluation Time Spent With Patient Time: Total time managing care of this patient today ____ minutes.
[2024-05-23] MEDS: HYDROmorphone HCl 2 MG TABLET 8 MG PO ×2 (11:22→13:59)
--- NOTE | 2024-05-23 11:26 | PC.NURSE ---
pt has family at bedside. all are aware of plan for discharge home with hospice once arangements are finalized. Pt is axox3, jaundice throughout body (skin and sclera), unlabored resp. abd soft, no distension, continues to have loose stools but less frequent. pitting edema is throught BLE up into thighs.
[2024-05-23 11:30] LABS: Glucose Peritoneal Fluid 88; LDH Peritoneal Fluid 168; Total Protein Peritoneal Fluid 1.3
--- NOTE | 2024-05-23 13:30 | PC.NURSE ---
Patient arrived to floor with right chest port accessed. Dressing in place- C/D/I. Tube is clamped. Antimicrobial cap in place. No redness, warmth, or drainage at site. No complaints of pain.
[2024-05-23] MEDS: 0.9 % Sodium Chloride Flush 3 ML SYRINGE IVFLUSH (22:13)
[2024-05-24] MEDS: cefTRIAXone sodium 1 GM VIAL IVPUSH (04:20)
[2024-05-24] MEDS: Doxycycline Hyclate 100 MG in 0.9 % Sodium Chloride 250 ML 166.67 MG IV ×2 (04:31→17:36)
[2024-05-24] MEDS: Omeprazole 20 MG CAPSULE.DR PO (06:05)
[2024-05-24] MEDS: Levothyroxine Sodium 125 MCG TABLET PO (06:05)
--- NOTE | 2024-05-24 06:12 | PC.NURSE ---
Patient slept in a long nap between [id number], checked frequently, no s/sx resp distress, declined 2100 scheduled pain medications and continued to rest well. Patient did awaken close to 2300, alert, appropriate, denied pain, repositioned, talkative, and took sips of fluids well. Noted back to sleep, HOB up, rested well and frequent check ins maintained.
[2024-05-24 07:51] VITALS: BP 103/65; PULSE 108; RESP 18; TEMP 36.3; O2SAT 95
[2024-05-24] MEDS: Apixaban 5 MG TABLET 10 MG PO ×2 (09:29→20:01)
[2024-05-24] MEDS: 0.9 % Sodium Chloride Flush 3 ML SYRINGE IVFLUSH ×3 (09:29→20:02)
[2024-05-24] MEDS: HYDROmorphone HCl 2 MG TABLET 8 MG PO ×2 (09:29→17:34)
[2024-05-24] MEDS: Furosemide 20 MG/2 ML VIAL IVPUSH (09:29)
--- NOTE | 2024-05-24 11:56 | P.PNIM_ITS ---
Subjective Subjective Date of Service: 05/24/24 Interval History: Seen and evaluated this morning feels better pain fairly controlled Review of Systems Review of Systems: Yes all other systems are reviewed and are negative Physical Exam 2 Vital Signs: Vital Signs: Last Vital Signs Temp 97.4 F 05/24/24 07:51 Pulse 108 H 05/24/24 07:51 Resp 18 05/24/24 07:51 BP 103/65 05/24/24 07:51 Pulse Ox 95 05/24/24 07:51 O2 Del Method Room Air 05/24/24 07:51 BMI result Body Mass Index 26.0 Const: Other: Constitutional : interactive, not in distress Cardiovascular : jaundiced, no JVP, no lower extremity edema Respiratory : bilateral chest movement, not in resp distress Gastrointestinal: soft, lax, Non tender Skin : Warm, Dry Neurological : Alert & oriented , No focal deficit Objective Data Active Medications Acetaminophen (Acetaminophen 325 Mg Tablet) 650 mg PO Q6H PRN PRN Reason: Pain, Mild 1-3,fever,headache Apixaban (Apixaban 5 Mg Tablet) 10 mg PO BID [facility] Stop: 05/29/24 21:01 Last Admin: 05/24/24 09:29 Dose: 10 mg Documented By: RA Calcium Carbonate (Calcium Carbonate 750 Mg Tab.Chew) 750 mg PO Q4H PRN PRN Reason: Heartburn Ceftriaxone Sodium (Ceftriaxone Sodium 1 Gm Vial) 1 gm IVPUSH Q24H [facility] Last Admin: 05/24/24 04:20 Dose: 1 gm Documented By: BRYSON Fentanyl (Fentanyl 50 Mcg Patch.Td72) 50 mcg TRANSDERMA Q72H [facility] Fentanyl (Fentanyl 25 Mcg Patch.Td72) 25 mcg TRANSDERMA Q72H [facility] Furosemide (Furosemide 20 Mg/2 Ml Vial) 20 mg IVPUSH DAILY [facility]; Protocol Last Admin: 05/24/24 09:29 Dose: 20 mg Documented By: RA Hydromorphone HCl (Hydromorphone Hcl 0.5 Mg/0.5 Ml Syringe) 0.5 mg IVPUSH Q3H PRN; Protocol PRN Reason: Pain, Severe (Pain Scale 7-10) Hydromorphone HCl (Hydromorphone Hcl 2 Mg Tablet) 8 mg PO QID [facility] Last Admin: 05/24/24 09:29 Dose: 8 mg Documented By: RA Doxycycline Hyclate 100 mg/ (Sodium Chloride) 250 mls @ 166.67 mls/hr IV Q12H [facility] Last Infusion: 05/24/24 06:01 Dose: Infused Documented By: BRYSON Levothyroxine Sodium (Levothyroxine Sodium 125 Mcg Tablet) 125 mcg PO DAILY@0600 [facility] Last Admin: 05/24/24 06:05 Dose: 125 mcg Documented By: BRYSON Loperamide HCl (Loperamide Hcl 2 Mg Capsule) 2 mg PO Q4H PRN PRN Reason: Diarrhea Last Admin: 05/23/24 09:58 Dose: 2 mg Documented By: ARTURO Loperamide HCl (Loperamide Hcl 2 Mg Capsule) 2 mg PO Q4H PRN PRN Reason: Diarrhea Magnesium Hydroxide (Milk Of Magnesia 30 Ml Oral.Susp) 30 ml PO DAILY PRN PRN Reason: Constipation Melatonin (Melatonin 3 Mg Tablet) 6 mg PO BEDTIME PRN PRN Reason: Insomnia Omeprazole (Omeprazole 20 Mg Capsule.Dr) 20 mg PO DAILY@0630 [facility] Last Admin: 05/24/24 06:05 Dose: 20 mg Documented By: BRYSON Sodium Chloride (0.9 % Sodium Chloride Flush 3 Ml Syringe) 3 ml IVFLUSH QSHIFT [facility] Last Admin: 05/24/24 09:29 Dose: 3 ml Documented By: RA Labs 05/23/24 04:43 05/23/24 04:43 Microbiology Microbiology Results: Microbiology 05/23/24 03:13 Gram Stain - Final Abdominal Fluid Routine Culture - Preliminary No growth to date. Anaerobic Culture - Preliminary No growth to date. 05/22/24 22:28 Blood Culture - Preliminary Blood - Venous No growth after 24 hours. 05/22/24 22:19 Blood Culture - Preliminary Blood - Venous No growth after 24 hours. Assessment and Plan (1) Abdominal pain: Status: Acute (2) Acute dehydration: Status: Acute (3) Left leg DVT: Status: Acute Plan Tomeka Hand is a 54 y/o woman with PMHx significant for worsening 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 Status post paracentesis -peritoneal fluid analysis likely metastatic related rather than infx Continue empiric IV antibiotic therapy with ceftriaxone Continue pain control with fentanyl patch and Dilaudid IV and PO as needed Start treatment with Lasix. Sepsis 2/2 Pneumonia Continue empiric IV antibiotic therapy with ceftriaxone and doxycycline Blood and peritoneal fluid cultures pending lactic acidosis Likely related to liver disease Diarrhea. due to poor absorption: C diff is negative. Imodium as needed. Left peroneal DVT. Continue Eliquis. Worsening LFTs and jaundice, likely liver failure secondary to metastatic disease. Continue to monitor LFTs. GI consult. Chronic anemia. Continue to monitor. Hypothyroidism. On levothyroxine. Check TSH. DVT prophylaxis: Eliquis GI prophylaxis: Protonix IV Code status: DNR\DNI, Hospice team following for home hospice likely on sunday. Patient will need hospitalization overnight for pain control for abdominal pain and empiric IV antibiotic therapy for active infection. Quality Stroke Does the patient have a stroke diagnosis?: No VTE Prior VTE?: No VTE Risk Level:: Medical - moderate - high VTE Device Contraindication: Treatment Not Indicated VTE Drug Contraindication: N/A - Med Ordered
[2024-05-24 15:32] VITALS: BP 113/77; PULSE 112; RESP 16; TEMP 36.6; O2SAT 91
[2024-05-24] MEDS: ondansetron HCL 4 MG/2 ML VIAL IVPUSH (20:01)
[2024-05-24 20:03] VITALS: BP 96/58; PULSE 105; RESP 18; TEMP 36.1; O2SAT 93
--- NOTE | 2024-05-24 21:43 | PC.NURSE ---
Addendum entered by Linda Parekh RN 05/25/24 06:27: Fentanyl patch seen on the left flank intact Original Note: Pt had vomited prior to shift change per RN, went to see pt, asleep and aroused when spoken to, claimed she had vomited 3x with greenish liquid and still feeling nauseous, Dr. Golden was made aware as no PRN nausea med ordered, Zofran given, pt felt relief after.
[2024-05-25 00:44] VITALS: BP 111/56; PULSE 104; RESP 18; TEMP 36.1; O2SAT 95
[2024-05-25] MEDS: cefTRIAXone sodium 1 GM VIAL IVPUSH (04:11)
[2024-05-25] MEDS: Doxycycline Hyclate 100 MG in 0.9 % Sodium Chloride 250 ML 166.67 MG IV (04:15)
[2024-05-25] MEDS: Omeprazole 20 MG CAPSULE.DR PO (05:46)
[2024-05-25] MEDS: Levothyroxine Sodium 125 MCG TABLET PO (05:46)
[2024-05-25 07:12] VITALS: BP 118/62; PULSE 105; RESP 16; TEMP 36.2; O2SAT 96
[2024-05-25] MEDS: Furosemide 20 MG/2 ML VIAL IVPUSH (09:25)
[2024-05-25] MEDS: Apixaban 5 MG TABLET 10 MG PO ×2 (09:25→22:01)
[2024-05-25] MEDS: 0.9 % Sodium Chloride Flush 3 ML SYRINGE IVFLUSH ×2 (09:25→16:56)
[2024-05-25] MEDS: HYDROmorphone HCl 2 MG TABLET 8 MG PO (09:41)
[2024-05-25] MEDS: Loperamide HCl 2 MG CAPSULE PO (09:41)
[2024-05-25] MEDS: ondansetron HCL 4 MG/2 ML VIAL IVPUSH (09:42)
[2024-05-25] MEDS: fentaNYL 25 MCG PATCH.TD72 TRANSDERMA (10:08)
--- NOTE | 2024-05-25 10:14 | PC.NURSE ---
25mcg fentanyl patch removed from left upper abdomen. Disposed of per protocol, witnessed by Gloria MCLAUGHLIN. New patch applied to left posterior shoulder.
--- NOTE | 2024-05-25 11:50 | HO.PM.IMPN ---
Subjective Subjective Date of Service: 05/25/24 Interval History: Seen and evaluated this morning feels better pain fairly controlled Physical Exam Vital Signs: Vital Signs: Last Vital Signs Temp 97.1 F 05/25/24 07:12 Pulse 105 H 05/25/24 07:12 Resp 16 05/25/24 07:12 BP 118/62 05/25/24 07:12 Pulse Ox 96 05/25/24 07:12 O2 Del Method Room Air 05/25/24 07:12 BMI result Body Mass Index 26.0 Const: Other: Constitutional : interactive, not in distress Cardiovascular : jaundiced, no JVP, no lower extremity edema Respiratory : bilateral chest movement, not in resp distress Gastrointestinal: soft, lax, Non tender Skin : Warm, Dry Neurological : Alert & oriented , No focal deficit Objective Data Active Medications Acetaminophen (Acetaminophen 325 Mg Tablet) 650 mg PO Q6H PRN PRN Reason: Pain, Mild 1-3,fever,headache Apixaban (Apixaban 5 Mg Tablet) 10 mg PO BID [facility] Stop: 05/29/24 21:01 Last Admin: 05/25/24 09:25 Dose: 10 mg Documented By: RA Calcium Carbonate (Calcium Carbonate 750 Mg Tab.Chew) 750 mg PO Q4H PRN PRN Reason: Heartburn Ceftriaxone Sodium (Ceftriaxone Sodium 1 Gm Vial) 1 gm IVPUSH Q24H [facility] Last Admin: 05/25/24 04:11 Dose: 1 gm Documented By: RAYO Fentanyl (Fentanyl 25 Mcg Patch.Td72) 25 mcg TRANSDERMA Q72H [facility] Last Admin: 05/25/24 10:08 Dose: 25 mcg Documented By: RA Furosemide (Furosemide 20 Mg/2 Ml Vial) 20 mg IVPUSH DAILY [facility]; Protocol Last Admin: 05/25/24 09:25 Dose: 20 mg Documented By: RA Hydromorphone HCl (Hydromorphone Hcl 2 Mg Tablet) 8 mg PO QID PRN PRN Reason: Pain, Moderate(Pain Scale 4-6) Last Admin: 05/25/24 09:41 Dose: 8 mg Documented By: RA Doxycycline Hyclate 100 mg/ (Sodium Chloride) 250 mls @ 166.67 mls/hr IV Q12H [facility] Last Infusion: 05/25/24 05:50 Dose: Infused Documented By: RAYO Levothyroxine Sodium (Levothyroxine Sodium 125 Mcg Tablet) 125 mcg PO DAILY@0600 [facility] Last Admin: 05/25/24 05:46 Dose: 125 mcg Documented By: RAYO Loperamide HCl (Loperamide Hcl 2 Mg Capsule) 2 mg PO Q4H PRN PRN Reason: Diarrhea Last Admin: 05/25/24 09:41 Dose: 2 mg Documented By: RA Loperamide HCl (Loperamide Hcl 2 Mg Capsule) 2 mg PO Q4H PRN PRN Reason: Diarrhea Magnesium Hydroxide (Milk Of Magnesia 30 Ml Oral.Susp) 30 ml PO DAILY PRN PRN Reason: Constipation Melatonin (Melatonin 3 Mg Tablet) 6 mg PO BEDTIME PRN PRN Reason: Insomnia Omeprazole (Omeprazole 20 Mg Capsule.Dr) 20 mg PO DAILY@0630 [facility] Last Admin: 05/25/24 05:46 Dose: 20 mg Documented By: RAYO Ondansetron HCl (Ondansetron Hcl 4 Mg/2 Ml Vial) 4 mg IVPUSH Q6H PRN PRN Reason: Nausea and Vomiting Last Admin: 05/25/24 09:42 Dose: 4 mg Documented By: RA Sodium Chloride (0.9 % Sodium Chloride Flush 3 Ml Syringe) [facility] Last Admin: 05/25/24 09:25 Dose: 3 ml Documented By: RA Labs 05/23/24 04:43 05/23/24 04:43 Microbiology Microbiology Results: Microbiology 05/23/24 03:13 Gram Stain - Final Abdominal Fluid Routine Culture - Final No growth after 2 days Anaerobic Culture - Preliminary No growth to date. 05/22/24 22:28 Blood Culture - Preliminary Blood - Venous No growth after 48 hours. 05/22/24 22:19 Blood Culture - Preliminary Blood - Venous No growth after 48 hours. Assessment and Plan (1) Abdominal pain: Status: Acute (2) Abdominal ascites: Status: Acute (3) Anal squamous cell carcinoma: Status: Acute Plan Tomeka Hand is a 54 y/o woman with PMHx significant for worsening 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 Status post paracentesis -peritoneal fluid analysis likely metastatic related rather than infx Continue empiric IV antibiotic therapy with ceftriaxone Continue pain control with fentanyl patch and Dilaudid IV and PO as needed continue Lasix. Sepsis 2/2 Pneumonia Continue empiric IV antibiotic therapy with ceftriaxone and doxycycline Blood and peritoneal fluid cultures pending lactic acidosis Likely related to liver disease Diarrhea. due to poor absorption: C diff is negative. Imodium as needed. Left peroneal DVT. Continue Eliquis loading Worsening LFTs and jaundice, likely liver failure secondary to metastatic disease. Continue to monitor LFTs. GI consult. Chronic anemia. Continue to monitor. Hypothyroidism. On levothyroxine. Check TSH. DVT prophylaxis: Eliquis Code status: DNR\DNI, Hospice team following for home hospice likely on sunday. Patient will need hospitalization overnight for pain control for abdominal pain and empiric IV antibiotic therapy for active infection. Quality Stroke Does the patient have a stroke diagnosis?: No VTE Prior VTE?: No VTE Risk Level:: Medical - moderate - high VTE Device Contraindication: Treatment Not Indicated VTE Drug Contraindication: N/A - Med Ordered
--- NOTE | 2024-05-25 13:43 | MHC.CM.PN ---
ambualnce booked for 1:30 tomorrow as 12:00 was unavaliable paperwork on front of chart
[2024-05-25 14:51] VITALS: BP 104/60; PULSE 100; RESP 18; TEMP 36.1; O2SAT 94
[2024-05-25] MEDS: Doxycycline Hyclate 100 MG in 0.9 % Sodium Chloride 250 ML 166.66 MG IV (16:56)
[2024-05-25 17:00] VITALS: RESP 12
[2024-05-25 23:49] VITALS: BP 107/62; PULSE 99; RESP 14; TEMP 36.2; O2SAT 94
[2024-05-26] MEDS: 0.9 % Sodium Chloride Flush 3 ML SYRINGE IVFLUSH ×2 (00:12→08:37)
[2024-05-26] MEDS: cefTRIAXone sodium 1 GM VIAL IVPUSH (04:06)
[2024-05-26] MEDS: Doxycycline Hyclate 100 MG in 0.9 % Sodium Chloride 250 ML 166.67 MG IV (04:06)
[2024-05-26] MEDS: Levothyroxine Sodium 125 MCG TABLET PO (05:36)
[2024-05-26] MEDS: Omeprazole 20 MG CAPSULE.DR PO (05:36)
[2024-05-26 07:50] VITALS: BP 95/58; PULSE 99; RESP 17; TEMP 36.6; O2SAT 95
[2024-05-26] MEDS: Apixaban 5 MG TABLET 10 MG PO (08:34)
[2024-05-26 08:36] LABS: pH Peritoneal Fluid 7.48
--- NOTE | 2024-05-26 09:18 | MHC.CM.PN ---
Addendum entered by Meghann White RN 05/26/24 11:18: Sent request to MD for meds requested by hospice. Original Note: Patient medically cleared for dc home w/ daughter Alee on hospice. Hospice services via [facility]. BLS transport scheduled for 1:30pm. RN and family aware.
--- NOTE | 2024-05-26 11:25 | P.DS_ITS ---
DS: Providers Provider Date of Service: 05/26/24 Date of admission: 05/23/24 03:57 Date of discharge: 05/26/24 Primary care physician: Angie Carlin MD Consults: 05/23/24 04:05 Consult to Hematology / Oncology Routine Consulting Provider: [facility] [place] Reason for consultation: Metastatic rectal CA Has provider been notified: No 05/23/24 04:28 Consult to Gastroenterology Routine Consulting Provider: Gamaliel Reynoso Reason for consultation: Metastatic liver disease, jaundice Has provider been notified: No DS: Diagnosis Discharge Diagnosis (1) Abdominal pain: Status: Acute (2) Abdominal ascites: Status: Acute (3) Anal squamous cell carcinoma: Status: Acute (4) Acute dehydration: Status: Acute (5) Diarrhea: Status: Acute (6) Left leg DVT: Status: Acute (7) 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 She also mentioned having events of vomiting about a week ago. She did report intermittent watery nonbloody diarrhea and noted yellowish tint to her sclerae and skin. She did complain of shortness on breath with exertion. Denied cough, chest pain, headache or palpitations. She noted that her urine is dark. According to patient's daughter who was at bedside patient was hospitalized at [facility] last Sunday with diagnosis of pneumonia. She was discharged the next day and was prescribed to take a course of doxycycline and cefdinir. The patient did not report any pain with urinary source, fever or chills. Her oncologist is Dr. Mitchell who evaluate her last month -to consider supportive care and hospice. In the ED, she was found to normal vital signs. Blood workup was remarkable for leukocytosis 24.8 hemoglobin of 9.9 and platelet 115. There is lactic acidosis that is trending down 4.4 -->3.9. LFTs are trending up specifically bilirubin 3.5 --> 8.5 (direct 6.5), alk-phos and AST. LDH is also elevated. Ammonia is normal. C diff is negative. Viral testing for influenza, RSV and COVID is negative. Abdominal pelvis CT scan showed interval increase in size of large rectal mass and significant worsening of metastatic disease to liver, worsening ascites and bibasilar opacity. Left lower extremity venous ultrasound showed left peroneal vein DVT and popliteal cyst. Paracentesis was performed by ED physician. About 1 L of cloudy yellow fluid was removed. ED tx: NS 1932 ml bolus, cefepime 2 g IV, Dilaudid 1 g IV, Eliquis 10 mg PO Hospital course The patient was admitted for treatment of abdominal pain secondary to metastatic disease to the liver and ascites. Status post paracentesis peritoneal fluid analysis likely metastatic related rather than infection with SBP. Treated with empirical IV antibiotic therapy with ceftriaxone for 4 days. cultures remained negative. pain control with fentanyl patch and Dilaudid IV and PO as needed. placed on Lasix which she will be discharged home on po lasix. Sepsis secondary to Pneumonia empirically IV antibiotic therapy with ceftriaxone and doxycycline. Blood and peritoneal fluid cultures negative. To discharge home on Levaquin to cover for both Pneumonia and possible SBP. lactic acidosis Likely related to liver disease. Diarrhea. due to poor absorption: C diff is negative. Imodium as needed will be prescribed at discharge. Left peroneal DVT. seen on US doppler. STarted Eliquis loading 10 mg bid then 5 mg bid at discharge. Worsening LFTs and jaundice, likely liver failure secondary to metastatic disease. discussed with hematology and GI. plan for home hospice on discharge. prescribed Dilaudid, Zofran and Fentanyl patch for pain control. Discharge plan Continue Levaquin for 5 more days Continue Eliquis 10 mg two times a day for 4 more days then decrease to 1 tablet two times a day Lasixx 20 mg daily Omeprazole daily Lopramide as needed for diarrhea Fentanyl and Dilaudid for pain as needed Time Attestation Discharge Coordination Time (in mins): 36 Quality: Safe Use of Opioids Does Pt have an Active Cancer Diagnosis on the Problem List?: Yes Opioid Measure Date for [facility] Report: 04/26/24 Opioid Measure Time for [facility] Report: 11:42 Quality: Stroke Does the patient have a stroke diagnosis?: No Physical Exam Vital Signs: Vital Signs: Last Vital Signs Temp 97.9 F 05/26/24 07:50 Pulse 99 05/26/24 07:50 Resp 17 05/26/24 07:50 BP 95/58 L 05/26/24 07:50 Pulse Ox 95 05/26/24 07:50 O2 Del Method Room Air 05/26/24 07:50 BMI result Body Mass Index 26.0 Const: Other: Constitutional : interactive, not in distress Cardiovascular : jaundiced, no JVP, no lower extremity edema Respiratory : bilateral chest movement, not in resp distress Gastrointestinal: soft, lax, Non tender, mildly distended Skin : Warm, Dry Neurological : Alert & oriented , No focal deficit DS: Data Data Completed and Pending Labs on day of discharge: Laboratory Results - last 24 hr 05/23/24 03:14 Peritoneal pH 7.48 Preliminary micro results at discharge 05/23/24 03:13 Anaerobic Culture - Preliminary Abdominal Fluid No growth to date. 05/22/24 22:28 Blood Culture - Preliminary Blood - Venous No growth after 48 hours. 05/22/24 22:19 Blood Culture - Preliminary Blood - Venous No growth after 48 hours. Imaging Chest x-ray: Radiologist's impression: US Doppler IMPRESSION: 1. Positive deep vein thrombosis in the left peroneal vein. Otherwise no deep vein thrombosis in left lower extremity. 2. Popliteal cyst and lower leg edema. This document has been electronically signed by: Priscilla You MD on 05/23/2024 01:23:[address] IMPRESSION: 1. Interval increase in size of large rectal mass and significant worsening of metastatic disease to liver as described. 2. Interval worsening of abdominal and pelvic ascites. 3. Stranding/edema in mesenteric, intra-abdominal and intrapelvic fat and subcutaneous fat. 4. Basilar opacity may represent atelectasis but pneumonia not excluded. Left basilar atelectasis. This document has been electronically signed by: Priscilla You MD on 05/23/2024 00:52:18 Discharge Plan Discharge Anticipated Discharge Date/Time: 05/26/24 11:10 Patient Disposition: Hospice - Home Discharge Diagnosis: Left leg DVT ascites Referrals: [facility] [Outside] - 1 Day ([facility] will provide hospice services. ) Angie Carlin MD [Primary Care Provider] - 1 Week Discharge Medications: New Eliquis 5 mg Tablet 10 mg PO BID Qty: 16 0RF loperamide 2 mg Capsule 2 mg PO Q4H PRN (Reason: Diarrhea) Qty: 60 0RF omeprazole 20 mg Capsule,Delayed Release(Dr/Ec) 20 mg PO DAILY@0630 Qty: 90 0RF furosemide 20 mg tablet 20 mg PO DAILY Qty: 90 0RF apixaban 5 mg tablet 5 mg PO BID Qty: 60 0RF levofloxacin 500 mg tablet 500 mg PO DAILY Qty: 5 0RF Continued levothyroxine 125 mcg tablet 125 mcg PO DAILY@0600 docusate sodium [Colace] 100 mg capsule 100 mg PO BID PRN (Reason: Constipation) hydromorphone [Dilaudid] 8 mg Tablet 8 mg PO Q6H Qty: 60 0RF Rx Instructions: Partial Fill upon patient request. ondansetron 8 mg Tablet,Disintegrating 8 mg PO Q8H PRN (Reason: Nausea And Vomiting) Qty: 60 1RF fentanyl 25 mcg/hr Patch 72 Hour 1 patch TRANSDERMAL Q72H Qty: 10 0RF Rx Instructions: Partial Fill upon patient request. loperamide [Imodium A-D] 2 mg Capsule 2 mg PO Q4H PRN (Reason: Diarrhea) Qty: 60 2RF Rx Instructions: administer after each loose stool until symptoms controlled; do not exceed 8 mg per 24 hrs Discharge Orders: Discharge Order (Routine); Ordered 05/26/24 Ordered By: Nilda Bates Diet: Advance to usual diet Activity on Discharge: As tolerated Stand Alone Forms: Patient Portal Discharge page Print Language: Frisian Care Plan Goals: Levofloxacin for 5 more days Continue Eliquis 10 mg two times a day for 4 more days then decrease to 1 tablet two times a day Lasixx 20 mg daily Omeprazole daily Lopramide as needed for diarrhea Fentanyl and Dilaudid for pain as needed Health Concerns: Metastatic cancer fluid overload Plan of Treatment: Hospice care Assessment: as above
[2024-05-26 15:05] VITALS: BP 104/51; PULSE 102; RESP 16; TEMP 37; O2SAT 94
== END 2024-05-26 15:16 | disposition hospice, home (50) | DRG 720 ==
LOC: HO.ED 05-23 03:05 → HO.EDOVER 05-23 04:04 → HO.S3 05-23 12:38
PROVIDERS: Admitting Provider Internal Medicine; Emergency Provider Emergency Medicine; PCP Internal Medicine; Visit Provider Student in an Organized Health Care Education/Training Program
DX: A41.9 Sepsis, unspecified organism (principal); K72.00 Acute and subacute hepatic failure without coma; R18.0 Malignant ascites; E87.20 Acidosis, unspecified; K65.8 Other peritonitis; J18.9 Pneumonia, unspecified organism; C21.0 Malignant neoplasm of anus, unspecified; C78.7 Secondary malignant neoplasm of liver and intrahepatic bile duct; I82.452 Acute embolism and thrombosis of left peroneal vein; Z66 Do not resuscitate; G89.3 Neoplasm related pain (acute) (chronic); Z51.5 Encounter for palliative care; D63.0 Anemia in neoplastic disease; E03.9 Hypothyroidism, unspecified; Z20.822 Contact with and (suspected) exposure to COVID-19; Z79.890 Hormone replacement therapy; Z79.899 Other long term (current) drug therapy
CPT/HCPCS: 0241U; 36415; 71045; 74177; 80048; 80053; 80076; 82140; 82945; 83605; 83615; 83690; 83735; 83986; 84157; 84443; 85025; 85610; 87040; 87070; 87073; 87205; 87493; 89051; 93971; 99285; J0692; J0696; J1171; J1642; J1940; J2405; J2470; Q9967

== ENCOUNTER → 2024-05-22 23:02 | Outpatient (BNV) | payer OTHER, SELFPAY | PROVIDERS: Emergency Provider Emergency Medicine; PCP Internal Medicine; Visit Provider Specialist | DX: R10.30 Lower abdominal pain, unspecified (principal); I82.402 Acute embolism and thrombosis of unspecified deep veins of left lower extremity | CPT/HCPCS: 74177; 93971 ==

== ENCOUNTER 2024-05-23 03:57 | Outpatient (BNV) | payer OTHER, SELFPAY | END 2024-05-23 04:20 | PROVIDERS: Admitting Provider Internal Medicine; Emergency Provider Emergency Medicine; PCP Internal Medicine; Visit Provider Specialist | DX: R06.02 Shortness of breath (principal) | CPT/HCPCS: 71045 ==

== ENCOUNTER → 2024-05-23 03:57 | Outpatient (BNV) | payer OTHER, SELFPAY | PROVIDERS: Admitting Provider Internal Medicine; Emergency Provider Emergency Medicine; PCP Internal Medicine; Visit Provider Internal Medicine | DX: R18.0 Malignant ascites (principal); C21.0 Malignant neoplasm of anus, unspecified; R10.84 Generalized abdominal pain | CPT/HCPCS: 99223; 99232; 99499 ==

== ENCOUNTER → 2024-05-23 03:57 | Outpatient (BNV) | payer OTHER, SELFPAY | PROVIDERS: Admitting Provider Internal Medicine; Emergency Provider Emergency Medicine; PCP Internal Medicine; Visit Provider Internal Medicine | DX: C78.5 Secondary malignant neoplasm of large intestine and rectum (principal) | CPT/HCPCS: 99222 ==